=== PATIENT | female | born 1980 | race Caucasian/White ===

== ENCOUNTER 2018-08-28 11:34 | Emergency (ER) | payer SELFPAY ==
--- NOTE | 2018-08-28 11:48 | ER Document Report ---
ED Medical Screen (RME) - General Chief Complaint: Upper Abdominal Pain Stated Complaint: ABDOMINAL PAIN Time Seen by Provider: 08/28/18 11:40 Notes: 38 years old female with a history of right inguinal hernia presents today with abdominal pain just above the umbilicus after a sharp cough happened just prior to arrival. The pain was sharp associated with nausea no vomiting. Denies any diarrhea but been constipated. No fever chills or other constitutional symptoms. On examination sharp tenderness were noted in the region between the epigastrium and umbilicus. Possible small hernia. TRAVEL OUTSIDE OF THE [place] IN LAST 30 DAYS: No - Related Data Allergies/Adverse Reactions: No Known Allergies Allergy (Verified 08/28/18 11:35) Past Medical History - Social History Chew tobacco use (# tins/day): No Frequency of alcohol use: Occasional Drug Abuse: None - Past Medical History Cardiac Medical History: Reports: Hx Hypertension Pulmonary Medical History: Reports: Hx Asthma, Hx Bronchitis Renal/ Medical History: Denies: Hx Peritoneal Dialysis Musculoskeltal Medical History: Reports Hx Musculoskeletal Trauma Psychiatric Medical History: Reports: Hx Depression Past Surgical History: Reports: Hx Section - 3, Hx Cholecystectomy, Hx Gynecologic Surgery - D+C, Hx Hysterectomy, Hx Tubal Ligation - Immunizations Immunizations up to date: Yes Hx Diphtheria, Pertussis, Tetanus Vaccination: - unsure of date Physical Exam - Vital signs Vitals: Temp Pulse Resp BP Pulse Ox 97.8 F 79 18 185/97 H 97 08/28/18 11:38 08/28/18 11:38 08/28/18 11:38 08/28/18 11:38 08/28/18 11:38 Course - Vital Signs Vital signs: Temp Pulse Resp BP Pulse Ox 97.8 F 79 18 185/97 H 97 08/28/18 11:38 08/28/18 11:38 08/28/18 11:38 08/28/18 11:38 08/28/18 11:38 Doctor's Discharge - Discharge Referrals: SHAREE ARANGO MD [Primary Care Provider] - Follow up as needed
[2018-08-28 12:21] LABS: ALANINE AMINOTRANSFERASE 32 U/L (9-52); ALBUMIN 4.1 g/dL (3.5-5.0); ALKALINE PHOSPHATASE 75 U/L (38-126); ANION GAP 12 (5-19); ASPARTATE AMINO TRANSFERASE 23 U/L (14-36); BILIRUBIN,DIRECT 0.3 mg/dL (0.0-0.4); BILIRUBIN,TOTAL 0.7 mg/dL (0.2-1.3); BLOOD UREA NITROGEN 10 mg/dL (7-20); CALCIUM 9.5 mg/dL (8.4-10.2); CARBON DIOXIDE 27 mmol/L (22-30); CHLORIDE 102 mmol/L (98-107); GLUCOSE 140 mg/dL (75-110); LIPASE 171.3 U/L (23-300); POTASSIUM 4.2 mmol/L (3.6-5.0); SODIUM 141.3 mmol/L (137-145); TOTAL PROTEIN 7.2 g/dL (6.3-8.2)
--- NOTE | 2018-08-28 12:28 | RADIOLOGY REPORT (SQ) ---
EXAM DESCRIPTION: ACUTE ABDOMEN SERIES COMPLETED DATE/TIME: 08/28/2018 12:13 pm REASON FOR STUDY: Abdominal pain COMPARISON: CT abdomen pelvis 10/06/2015, 01/06/2015, 04/08/2014 NUMBER OF VIEWS: Three views. TECHNIQUE: Frontal chest, supine abdomen and upright abdomen radiographic images acquired. LIMITATIONS: None. FINDINGS: CHEST: Lungs clear of infiltrates. Cardiac silhouette size, patricia unremarkable. FREE AIR: None. No abnormal gas collections. BOWEL GAS PATTERN: Nonobstructive pattern. No dilated loops or air fluid levels. Patient has an abdo dario panniculus with small bowel air bubble pattern over the right inguinal region, correlate clinic ally for lower abdominal hernia CALCIFICATIONS: No suspicious calcifications. HARDWARE: Clips right upper quadrant post cholecystectomy SOFT TISSUES: No gross mass or suggestion of organomegaly. BONES: No acute fracture. No worrisome bone lesions. OTHER: No other significant finding. IMPRESSION: Patient has an abdominal panniculus with small bowel air bubble pattern over the right i nguinal region, correlate clinically for lower abdominal hernia Grossly nonobstructive bowel gas pattern No acute infiltrates TECHNICAL DOCUMENTATION: JOB ID: [id number]- All Rights Reserved Reading location - IP/workstation name: [email or web address]
--- NOTE | 2018-08-28 12:28 | ER Document Report ---
ED GI/ - General Mode of Arrival: Ambulatory Information source: Patient TRAVEL OUTSIDE OF THE [place] IN LAST 30 DAYS: No <SERENA PICKERING - Last Filed: 08/28/18 12:46> <TEAGAN PISANO - Last Filed: 08/28/18 16:38> - General Chief Complaint: Upper Abdominal Pain Stated Complaint: ABDOMINAL PAIN Time Seen by Provider: 08/28/18 11:40 Notes: 38-year-old female that presents to the emergency department today with complaints of abdominal pain. Patient states she has a hernia that has been present for quite some time however beginning last night the pain that she experienced with this hernia became much greater than what she is used to. Patient also mentions she had some upper abdominal pain this morning when cooking that was described as a burning and then she had a violent cough and her upper abdominal pain got much worse and it felt like "her abdomen was on fire". (SERENA PICKERING) - Related Data Allergies/Adverse Reactions: adhesive tape Allergy (Verified 08/28/18 11:47) Past Medical History - General Information source: Patient - Social History Smoking Status: Current Every Day Smoker Cigarette use (# per day): Yes Chew tobacco use (# tins/day): No Frequency of alcohol use: Occasional Drug Abuse: None Lives with: Family Family History: Arthritis, CAD, CVA, DM, Hyperlipidemia, Hypertension, Malignancy, Thyroid Disfunction Patient has suicidal ideation: No Patient has homicidal ideation: No - Past Medical History Cardiac Medical History: Reports: Hx Hypertension Pulmonary Medical History: Reports: Hx Asthma, Hx Bronchitis Renal/ Medical History: Denies: Hx Peritoneal Dialysis Musculoskeletal Medical History: Reports Hx Musculoskeletal Trauma Psychiatric Medical History: Reports: Hx Depression Past Surgical History: Reports: Hx Section - 3, Hx Cholecystectomy, Hx Gynecologic Surgery - D+C, Hx Hysterectomy, Hx Tubal Ligation - Immunizations Immunizations up to date: Yes Hx Diphtheria, Pertussis, Tetanus Vaccination: - unsure of date Hx Pneumococcal Vaccination: 01/25/13 <SERENA PICKERING - Last Filed: 08/28/18 12:46> Review of Systems - Review of Systems Constitutional: No symptoms reported EENT: No symptoms reported Cardiovascular: No symptoms reported Respiratory: No symptoms reported Gastrointestinal: See HPI, Abdominal pain, Nausea Genitourinary: No symptoms reported Female Genitourinary: No symptoms reported Musculoskeletal: No symptoms reported Skin: No symptoms reported Hematologic/Lymphatic: No symptoms reported Neurological/Psychological: No symptoms reported -: Yes All other systems reviewed and negative <RAHEELSERENA - Last Filed: 08/28/18 12:46> Physical Exam <RAHEELSERENA - Last Filed: 08/28/18 12:46> <TEAGAN PISANO - Last Filed: 08/28/18 16:38> - Vital signs Vitals: Temp Pulse Resp BP Pulse Ox 97.8 F 79 18 185/97 H 97 08/28/18 11:38 08/28/18 11:38 08/28/18 11:38 08/28/18 11:38 08/28/18 11:38 - Notes Notes: Physical Exam: General: Alert, appears well. HEENT: Normocephalic. Atraumatic. PERRL. Extraocular movements intact. Oropharynx clear. Neck: Supple. Non-tender. Respiratory: No respiratory distress. Clear and equal breath sounds bilaterally. Cardiovascular: Regular rate and rhythm. Abdominal: Morbidly obese. Epigastric area is not tender. Supraumbilical area is tender with palpation without guarding or rebound. large suprapubic hernia that is somewhat reducible but is soft and not incarcerated. Some areas of this hernia have thin skin which corresponds to the areas where a previous hernia was repaired with mesh, the mesh then had to be removed because of infection. Normal Bowel Sounds. Back: Non-tender. No deformity or step off. Extremities: Moves all four extremities. Upper extremities: Normal inspection. Normal ROM. Lower extremities: Normal inspection. No edema. Normal ROM. Neurological: Normal cognition. AAOx4. Normal speech. Psychological: Normal affect. Normal Mood. Skin: Warm. Dry. Normal color. (SERENA PICKERING) Course - Laboratory Result Diagrams: 08/28/18 11:55 08/28/18 11:55 <SERENA PICKERING - Last Filed: 08/28/18 12:46> - Laboratory Result Diagrams: 08/28/18 11:55 08/28/18 11:55 - Diagnostic Test Radiology reviewed: Image reviewed, Reports reviewed - CT scan shows a suprapubic midline rectus muscle diastases with herniation of nonobstructed small bowel loops into the anterior abdominal wall panel decubitus fat, unchanged from CT scan almost 3 years ago. <TEAGAN PISANO - Last Filed: 08/28/18 16:38> - Vital Signs Vital signs: Temp Pulse Resp BP Pulse Ox 97.8 F 69 16 147/92 H 96 08/28/18 11:38 08/28/18 16:18 08/28/18 16:18 08/28/18 16:18 08/28/18 16:18 - Laboratory Laboratory results interpreted by me: 08/28/18 08/28/18 08/28/18 11:55 11:55 11:55 RDW 14.9 H Glucose 140 H Urine Blood SMALL H Discharge <SERENA PICKERING - Last Filed: 08/28/18 12:46> <TEAGAN PISANO - Last Filed: 08/28/18 16:38> - Discharge Clinical Impression: Hernia of abdominal cavity Abdominal pain Qualifiers: Abdominal location: periumbilical Qualified Code(s): R10.33 - Periumbilical pain Condition: Stable Disposition: HOME, SELF-CARE Additional Instructions: The CT scan done today is unchanged from one done on 10/06/2015. The lab work does not suggest an infectious process. The pain in your mid abdomen seems to be coming from the abdominal muscle wall. There is no obstruction noted in your suprapubic hernia. You should follow-up with your primary care provider this week for recheck. Take Tylenol and ibuprofen for pain and try to limit activity that makes it more painful. RETURN TO THE EMERGENCY ROOM IF ANY NEW OR WORSENING SYMPTOMS. Referrals: SHAREE ARANGO MD [NO LOCAL MD] - Follow up as needed Scribe Attestation: 08/28/18 12:31 I personally performed the services described in the documentation, reviewed and edited the documentation which was dictated to the scribe in my presence, and it accurately records my words and actions. (TEAGAN PISANO) Scribe Documentation - Scribe Written by David:: David Noel, 08/28/2018 1306 acting as scribe for :: Harshad <SERENA PICKERING - Last Filed: 08/28/18 12:46>
[2018-08-28 12:29] LABS: ABSOLUTE EOSINOPHILS # (AUTO) 0.4 10^3/uL (0.0-0.6); ABSOLUTE MONOCYTES (AUTO) 0.3 10^3/uL (0.1-1.4); ABSOLUTE NEUT (AUTO) 5.9 10^3/uL (1.7-8.2); BASOPHILS % (AUTO) 0.3 % (0-2); EOSINOPHILS % (AUTO) 4.4 % (0-6); HEMATOCRIT 42.7 % (36.0-47.0); HEMOGLOBIN 14.8 g/dL (12.0-15.5); LYMPHOCYTES % (AUTO) 23.2 % (13-45); MEAN CORPUSCULAR HEMOGLOBIN 28.2 pg (27.0-33.4); MEAN CORPUSCULAR HGB CONC 34.6 g/dL (32.0-36.0); MEAN CORPUSCULAR VOLUME 82 fl (80-97); MONOCYTES % (AUTO) 3.3 % (3-13); PLATELET COUNT 257 10^3/uL (150-450); RED BLOOD COUNT 5.24 10^6/uL (3.72-5.28); RED CELL DISTRIBUTION WIDTH 14.9 % (11.5-14.0); SEGMENTED NEUTROPHILS % (AUTO) 68.8 % (42-78); TOTAL CELLS COUNTED % (AUTO) 100 %; WHITE BLOOD COUNT 8.6 10^3/uL (4.0-10.5)
[2018-08-28 12:31] LABS: APPEARANCE,URINE SLIGHTLY-CLOUDY; BILIRUBIN,URINE NEGATIVE (NEGATIVE); COLOR,URINE YELLOW; GLUCOSE, URINE NEGATIVE (NEGATIVE); KETONES,URINE NEGATIVE (NEGATIVE); LEUKOCYTE ESTERASE,URINE NEGATIVE (NEGATIVE); NITRITE,URINE NEGATIVE (NEGATIVE); PROTEIN,URINE NEGATIVE (NEGATIVE); URINE SPECIFIC GRAVITY 1.008; UROBILINOGEN,URINE NEGATIVE mg/dL (<2.0)
[2018-08-28] MEDS ORDERED: ONDANSETRON HCL INJ/PF 4 MG/2 ML SDV IV ONE (12:33)
--- NOTE | 2018-08-28 16:15 | RADIOLOGY REPORT (SQ) ---
EXAM DESCRIPTION: CT ABD/PELVIS WITH IV ORAL COMPLETED DATE/TIME: 08/28/2018 3:50 pm REASON FOR STUDY: Burning pain supraumbilical,sharp pains suprapubic COMPARISON: CT abdomen pelvis 10/06/2015, 01/06/2015, 04/08/2014 TECHNIQUE: CT scan of the abdomen and pelvis performed using helical scanning technique with dynamic intravenous contrast injection. Patient drank oral contrast. Images reviewed with lung, soft tissue , and bone windows. Reconstructed coronal and sagittal MPR images reviewed. Delayed images for evalua tion of the urinary system also acquired. All images stored on PACS. All CT scanners at this facility use dose modulation, iterative reconstruction, and/or weight based d osing when appropriate to reduce radiation dose to as low as reasonably achievable (ALARA). [facility]: Dose Right [facility]: CareDose [facility]: Dose Right [facility]: Teradose 4D [facility]: SeptRx CONTRAST TYPE AND DOSE: contrast/concentration: Isovue 350.00 mg/ml; Total Contrast Delivered: 100.0 ml; Total Saline Delivered: 45.0 ml RENAL FUNCTION: GFR > 60. RADIATION DOSE: CT Rad equipment meets quality standard of care and radiation dose reduction techniq ues were employed. CTDIvol: 20.8 - 21.0 mGy. DLP: 2394 mGy-cm.. LIMITATIONS: None. FINDINGS: There is diastasis of the rectus muscles in the suprapubic region, and midline herniation of nonobstructed small bowel into the panniculus fat. This is best shown on axial images 75-97, and sagittal images 65-74. This hernia is similar compared to 10/06/2015 CT abdomen and pelvis. LOWER CHEST: No significant findings. No nodules or infiltrates. LIVER: Normal size. No masses. No dilated ducts. SPLEEN: Normal size. No focal lesions. PANCREAS: No masses. No significant calcifications. No adjacent inflammation or peripancreatic fluid collections. Pancreatic duct not dilated. GALLBLADDER: Surgically absent ADRENAL GLANDS: No significant masses or asymmetry. RIGHT KIDNEY AND URETER: No solid masses. No significant calcifications. No hydronephrosis or hyd roureter. LEFT KIDNEY AND URETER: No solid masses. No significant calcifications. No hydronephrosis or hydr oureter. AORTA AND VESSELS: No aneurysm. No dissection. Renal arteries, SMA, celiac without stenosis. RETROPERITONEUM: No retroperitoneal adenopathy, hemorrhage or masses. BOWEL AND PERITONEAL CAVITY: Patient drank oral contrast. No bowel obstruction. No free intraperito vince air or fluid. APPENDIX: Surgically absent PELVIS: Post hysterectomy. No free pelvic fluid. Normal size ovaries. No pelvic adenopathy ABDOMINAL WALL: Suprapubic midline rectus muscle diastases with herniation of nonobstructed small bow el loops into anterior abdominal wall panniculus fat BONES: No significant or acute findings. OTHER: No other significant finding. IMPRESSION: Suprapubic midline rectus muscle diastases with herniation of nonobstructed small bowel loops into anterior abdominal wall panniculus fat, similar compared to CT abdomen and pelvis 10/06/20 15 TECHNICAL DOCUMENTATION: JOB ID: [id number] Quality ID # [id number]: Final reports with documentation of one or more dose reduction techniques (e.g., Au tomated exposure control, adjustment of the mA and/or kV according to patient size, use of iterative reconstruction technique) 2010 [employer]- All Rights Reserved Reading location - IP/workstation name: [email or web address]
[2018-08-28 16:19] VITALS: BP 147/92
[2018-08-28] MEDS ORDERED: HYDROCODONE/ACETAMINOPHEN 5-325 MG (6 TAB/ER DISP) PO PRN (16:39)
== END 2018-08-28 16:55 | disposition home or self-care (01) ==
LOC: ER 11:34
DX: K43.9 Ventral hernia without obstruction or gangrene (principal); M62.08 Separation of muscle (nontraumatic), other site; R10.33 Periumbilical pain; R05 Cough; I10 Essential (primary) hypertension; J45.909 Unspecified asthma, uncomplicated; R11.0 Nausea; F17.210 Nicotine dependence, cigarettes, uncomplicated; Z91.048 Other nonmedicinal substance allergy status
CPT/HCPCS: 99284; 96374; 36415; 83690; 85025; 80053; 81001; 74022; 74177; J2405

== ENCOUNTER 2018-10-28 13:28 | Emergency (ER) | payer SELFPAY ==
[2018-10-28] MEDS ORDERED: MAGNESIUM SULFATE/D5W 1 GM/100 ML RTUPB IV ONE (15:34)
[2018-10-28] MEDS ORDERED: IPRATROPIUM/ALBUTEROL 0.5-2.5 MG/3 ML AMPUL NEB ONE (15:34)
[2018-10-28] MEDS ORDERED: METHYLPREDNISOLONE INJ 125 MG/2 ML SDV IV ONE (15:35)
--- NOTE | 2018-10-28 15:36 | ER Document Report ---
ED Medical Screen (RME) - General Chief Complaint: Breathing Difficulty Stated Complaint: DIFFICULTY BREATHING Time Seen by Provider: 10/28/18 15:33 Primary Care Provider: OLAF VASQUEZ MD [Primary Care Provider] - Follow up as needed Mode of Arrival: Ambulatory Information source: Patient Notes: This is a 38-year-old female with a history of hypertension, asthma and a recent diagnosis of pneumonia presents to the emergency room with worsening shortness of breath, dyspnea. Patient states she was placed on amoxicillin 2 nights ago. She was placed on prednisone but states she had not filled that prescription. She states that the shortness of breath is been getting worse. She does endorse fever. TRAVEL OUTSIDE OF THE [place] IN LAST 30 DAYS: No - Related Data Allergies/Adverse Reactions: adhesive tape Allergy (Verified 10/28/18 13:42) cephalexin [From Keflex] Allergy (Verified 10/28/18 13:42) Past Medical History - Past Medical History Cardiac Medical History: Reports: Hx Hypertension Pulmonary Medical History: Reports: Hx Asthma, Hx Bronchitis Renal/ Medical History: Denies: Hx Peritoneal Dialysis Musculoskeltal Medical History: Reports Hx Musculoskeletal Trauma Psychiatric Medical History: Reports: Hx Depression Past Surgical History: Reports: Hx Section - 3, Hx Cholecystectomy, Hx Gynecologic Surgery - 3 , Hx Hysterectomy, Hx Tubal Ligation, Other - Multiple abdominal wall hernia repair involving Pfannenstiel incision - Immunizations Immunizations up to date: Yes Hx Diphtheria, Pertussis, Tetanus Vaccination: - unsure of date Physical Exam - Vital signs Vitals: Temp Pulse Resp BP Pulse Ox 99.8 F 113 H 24 H 155/101 H 97 10/28/18 14:10/28/18 14:31 10/28/18 14:10/28/18 14:10/28/18 14:31 Course - Vital Signs Vital signs: Temp Pulse Resp BP Pulse Ox 99.8 F 113 H 24 H 155/101 H 97 10/28/18 14:10/28/18 14:10/28/18 14:10/28/18 14:10/28/18 14:31 Doctor's Discharge - Discharge Referrals: OLAF VASQUEZ MD [Primary Care Provider] - Follow up as needed
[2018-10-28 16:32] LABS: ABSOLUTE BASOPHILS # (AUTO) 0.1 10^3/uL (0.0-0.2); ABSOLUTE EOSINOPHILS # (AUTO) 0.3 10^3/uL (0.0-0.6); ABSOLUTE LYMPHOCYTES (AUTO) 1.7 10^3/uL (0.5-4.7); ABSOLUTE MONOCYTES (AUTO) 0.9 10^3/uL (0.1-1.4); ABSOLUTE NEUT (AUTO) 6.8 10^3/uL (1.7-8.2); BASOPHILS % (AUTO) 0.5 % (0-2); EOSINOPHILS % (AUTO) 2.8 % (0-6); HEMATOCRIT 46.9 % (36.0-47.0); HEMOGLOBIN 16.2 g/dL (12.0-15.5); LYMPHOCYTES % (AUTO) 17.7 % (13-45); MEAN CORPUSCULAR HEMOGLOBIN 27.8 pg (27.0-33.4); MEAN CORPUSCULAR HGB CONC 34.6 g/dL (32.0-36.0); MEAN CORPUSCULAR VOLUME 80 fl (80-97); MONOCYTES % (AUTO) 9.2 % (3-13); PLATELET COUNT 294 10^3/uL (150-450); RED BLOOD COUNT 5.84 10^6/uL (3.72-5.28); RED CELL DISTRIBUTION WIDTH 15.6 % (11.5-14.0); SEGMENTED NEUTROPHILS % (AUTO) 69.8 % (42-78); TOTAL CELLS COUNTED % (AUTO) 100 %; WHITE BLOOD COUNT 9.7 10^3/uL (4.0-10.5)
[2018-10-28 16:39] LABS: A TYPE INFLUENZA AG NEGATIVE (NEGATIVE); B INFLUENZA AG NEGATIVE (NEGATIVE)
[2018-10-28 16:48] LABS: ALANINE AMINOTRANSFERASE 36 U/L (9-52); ALBUMIN 4.7 g/dL (3.5-5.0); ALKALINE PHOSPHATASE 96 U/L (38-126); ANION GAP 11 (5-19); ASPARTATE AMINO TRANSFERASE 31 U/L (14-36); BILIRUBIN,DIRECT 0.3 mg/dL (0.0-0.4); BILIRUBIN,TOTAL 0.7 mg/dL (0.2-1.3); BLOOD UREA NITROGEN 10 mg/dL (7-20); CALCIUM 9.8 mg/dL (8.4-10.2); CARBON DIOXIDE 28 mmol/L (22-30); CHLORIDE 97 mmol/L (98-107); GLUCOSE 114 mg/dL (75-110); SODIUM 136.2 mmol/L (137-145); TOTAL PROTEIN 8.2 g/dL (6.3-8.2)
--- NOTE | 2018-10-28 17:10 | RADIOLOGY REPORT (SQ) ---
EXAM DESCRIPTION: CHEST 2 VIEWS COMPLETED DATE/TIME: 10/28/2018 4:34 pm REASON FOR STUDY: sob COMPARISON: 08/18/2014 EXAM PARAMETERS: NUMBER OF VIEWS: two views TECHNIQUE: Digital Frontal and Lateral radiographic views of the chest acquired. RADIATION DOSE: NA LIMITATIONS: none FINDINGS: LUNGS AND PLEURA: Parenchymal opacity in the lingula segment of the left upper lobe. Righ t lung is clear. MEDIASTINUM AND HILAR STRUCTURES: No masses or contour abnormalities. HEART AND VASCULAR STRUCTURES: Heart normal size. No evidence for failure. BONES: No acute findings. HARDWARE: None in the chest. OTHER: No other significant finding. IMPRESSION: Lingular pneumonia. TECHNICAL DOCUMENTATION: JOB ID: [id number] [employer]- All Rights Reserved Reading location - IP/workstation name: [email or web address]
[2018-10-28] MEDS ORDERED: IBUPROFEN 800 MG TABLET PO ONE (19:45)
[2018-10-28] MEDS ORDERED: NORMAL SALINE 1000 ML 1,000 ML IV ONE (19:45)
[2018-10-28] MEDS ORDERED: AMOXICILLIN TR/POT CLAVULANATE 500-125 MG TAB PO ONE (19:46)
--- NOTE | 2018-10-28 19:48 | ER Document Report ---
ED Respiratory Problem - General Chief Complaint: Breathing Difficulty Stated Complaint: DIFFICULTY BREATHING Time Seen by Provider: 10/28/18 15:33 Primary Care Provider: OLAF VASQUEZ MD [Primary Care Provider] - Follow up as needed Mode of Arrival: Ambulatory Notes: RME Provider note: This is a 38-year-old female with a history of hypertension, asthma and a recent diagnosis of pneumonia presents to the emergency room with worsening shortness of breath, dyspnea. Patient states she was placed on amoxicillin 2 nights ago. She was placed on prednisone but states she had not filled that prescription. She states that the shortness of breath is been getting worse. She does endorse fever. My HPI: Same as above. Patient's also stating that she does not have a nebulizer machine at home because she believes it is broken. She has not been using at home albuterol which was also prescribed to her when she was diagnosed with pneumonia 2 days ago. And a further discussion with the patient she states the antibiotic that she is on is azithromycin not amoxicillin. Patient also stating she has generalized body aches and generalized bilateral lower rib pain when she coughs. Patient also stating that she typically smokes about a pack of cigarettes a day. States she has not smoked any cigarettes for the last 3 days. Past medical history: Hypertension, asthma Medications: Amlodipine, Symbicort, albuterol Allergies: Cephalexin Patient's denying any hospital admissions within the last 3 months. TRAVEL OUTSIDE OF THE [place] IN LAST 30 DAYS: No - Related Data Allergies/Adverse Reactions: adhesive tape Allergy (Verified 10/28/18 13:42) cephalexin [From Keflex] Allergy (Verified 10/28/18 13:42) Past Medical History - General Information source: Patient - Social History Smoking Status: Current Every Day Smoker Family History: Arthritis, Malignancy, CAD, CVA, DM, Hyperlipidemia, Hypertension, Reviewed & Not Pertinent, Thyroid Disfunction Patient has suicidal ideation: No Patient has homicidal ideation: No - Past Medical History Cardiac Medical History: Reports: Hx Hypertension Pulmonary Medical History: Reports: Hx Asthma, Hx Bronchitis Renal/ Medical History: Denies: Hx Peritoneal Dialysis Musculoskeletal Medical History: Reports Hx Musculoskeletal Trauma Psychiatric Medical History: Reports: Hx Depression Past Surgical History: Reports: Hx Section - 3, Hx Cholecystectomy, Hx Gynecologic Surgery - 3 , Hx Hysterectomy, Hx Tubal Ligation, Other - Multiple abdominal wall hernia repair involving Pfannenstiel incision - Immunizations Immunizations up to date: Yes Hx Diphtheria, Pertussis, Tetanus Vaccination: - unsure of date Hx Pneumococcal Vaccination: 01/25/13 Review of Systems - Review of Systems Constitutional: See HPI EENT: See HPI Cardiovascular: See HPI Respiratory: See HPI Gastrointestinal: No symptoms reported Genitourinary: No symptoms reported Female Genitourinary: No symptoms reported Musculoskeletal: See HPI Skin: No symptoms reported Hematologic/Lymphatic: No symptoms reported Neurological/Psychological: No symptoms reported Physical Exam - Vital signs Vitals: Temp Pulse Resp BP Pulse Ox 99.8 F 113 H 24 H 155/101 H 97 10/28/18 14:31 10/28/18 14:31 10/28/18 14:31 10/28/18 14:31 10/28/18 14:31 - Notes Notes: GENERAL: Alert, interacts well. No acute distress. HEAD: Normocephalic, atraumatic. No frontal or maxillary sinus tenderness noted EYES: Pupils equal, round, and reactive to light. Extraocular movements intact. ENT: Oral mucosa moist, tongue midline. Nares patent, TM's intact, nonerythematous, nonbulging bilaterally. Pharynx within normal limits, no palatal petechiae or exudate noted. NECK: Full range of motion. Supple. Trachea midline. No lymphadenopathy appreciated LUNGS: Clear to auscultation bilaterally, no wheezes, rales, or rhonchi. No respiratory distress. HEART: Regular rate and rhythm. No murmur ABDOMEN: Obese soft, non-tender. Non-distended. Bowel sounds present in all 4 quadrants. EXTREMITIES: Moves all 4 extremities spontaneously. No edema, normal radial and dorsalis pedis pulses bilaterally. No cyanosis. BACK: no cervical, thoracic, lumbar midline tenderness. No saddle anesthesia, normal distal neurovascular exam. NEUROLOGICAL: Alert and oriented x3. Normal speech. cranial nerves II through XII grossly intact PSYCH: Normal affect, normal mood. SKIN: Warm, dry, normal turgor. No rashes or lesions noted. Course - Re-evaluation Re-evalutation: 10/28/18 19:48 Patient's labs showed no signs of leukocytosis. Minor decrease in patient's sodium at 136.2-treated with normal saline solution.. Her lactic acid was 0.9 and not elevated at all. Patient's flu test was negative. Patient's chest x- ray did show a left lingular pneumonia. Patient was given magnesium, Solu- Medrol, 1 DuoNeb treatment by the [facility] provider. Upon my assessment patient's lung sounds are clear and equal in all thomas. She is 100% on room air, in no respiratory distress at this time. Discussed with patient need to get her medications filled and take them as prescribed or she is not going to get any better. Discussed adding Augmentin to her azithromycin antibiotic. Patient voices understanding, stable for discharge at this time. - Vital Signs Vital signs: Temp Pulse Resp BP Pulse Ox 99.8 F 113 H 21 H 128/92 H 93 10/28/18 14:31 10/28/18 14:31 10/28/18 19:01 10/28/18 19:01 10/28/18 19:01 - Laboratory Result Diagrams: 10/28/18 16:19 10/28/18 16:19 Laboratory results interpreted by me: 10/28/18 10/28/18 16:19 16:19 RBC 5.84 H Hgb 16.2 H RDW 15.6 H Sodium 136.2 L Chloride 97 L Glucose 114 H Discharge - Discharge Clinical Impression: Smoker Pneumonia Qualifiers: Pneumonia type: due to unspecified organism Laterality: left Lung location: unspecified part of lung Qualified Code(s): J18.9 - Pneumonia, unspecified organism Condition: Stable Disposition: HOME, SELF-CARE Instructions: Pneumonia ([facility]) Additional Instructions: As we discussed you have been seen and treated in the emergency department for your pneumonia. You should take your albuterol treatments every 4 hours for the next 72 hours. You should also take the steroid prescription that I have given you. You should also take this new antibiotic I have given you. Please make sure you take your old antibiotic azithromycin as well. Take both antibiotics at the same time. Please also use a spacer when you use your albuterol inhaler. Please make sure that you are continuing to take Tylenol and Motrin [id number] for generalized body aches and fevers. Please make sure you are staying well-hydrated. Please follow-up with your primary care provider in the next 24-48 hours. Please return to the emergency room for any other concerning symptoms. Prescriptions: Benzonatate [Tessalon Ella 100 mg Capsule] 100 mg PO Q8HP PRN #40 capsule PRN Reason: Albuterol Sulfate [Proair HFA Inhalation Aerosol 8.5 gm MDI] 2 puff IH Q4H PRN #1 mdi PRN Reason: Albuterol Sulfate [Ventolin 0.083% Neb 2.5 mg/3 mL Ampul] 1 vial NEB Q4 #60 vial Amoxicillin/Potassium Clav [Augmentin Xr 1,000-62.5 Tab] 2 each PO BID 7 Days tab.er.12h Nebulizer [Nebulizer Machine] 1 each MC ASDIR PRN #1 kit PRN Reason: Prednisone [Deltasone 20 mg Tablet] 3 tab PO DAILY 5 Days tablet Referrals: OLAF VASQUEZ MD [Primary Care Provider] - Follow up as needed [facility] [Provider Group] - Follow up as needed
[2018-10-28 20:03] VITALS: BP 129/77
== END 2018-10-28 20:55 | disposition home or self-care (01) ==
LOC: ER 13:28
DX: J18.9 Pneumonia, unspecified organism (principal); J45.909 Unspecified asthma, uncomplicated; T38.0X6A Underdosing of glucocorticoids and synthetic analogues, initial encounter; T48.6X6A Underdosing of antiasthmatics, initial encounter; Z91.128 Patient's intentional underdosing of medication regimen for other reason; Z91.14 Patient's other noncompliance with medication regimen; F17.210 Nicotine dependence, cigarettes, uncomplicated; I10 Essential (primary) hypertension; R06.02 Shortness of breath; R50.9 Fever, unspecified; R05 Cough; R07.81 Pleurodynia; Z91.048 Other nonmedicinal substance allergy status; Z88.1 Allergy status to other antibiotic agents
CPT/HCPCS: 94640; 99285; 96361; 96374; 36415; 87040; 85025; 80053; 83605; 87804; 71046; J2930; J3475; J7030; J7620

== ENCOUNTER 2018-11-04 18:30 | Emergency (ER) | payer SELFPAY ==
--- NOTE | 2018-11-04 19:39 | ER Document Report ---
ED Medical Screen (RME) - General Chief Complaint: Abdominal Pain Stated Complaint: ABDOMINAL PAIN Time Seen by Provider: 11/04/18 18:34 Primary Care Provider: OLAF VASQUEZ MD [Primary Care Provider] - Follow up as needed TRAVEL OUTSIDE OF THE [place] IN LAST 30 DAYS: No - HPI Patient complains to provider of: Suprapubic hernia pain Notes: 11/04/18 19:38 Patient is a 38-year-old female with chronically incarcerated Pfannenstiel hernia, which is a large hernia in the suprapubic region, she states over the past few days she has had more pain with a burning sensation at the site, which is making her nauseated, she also complains of difficulty having bowel movements, patient has been seen in this department for this hernia previously and surgery was consulted, she was advised to follow-up with them as an outpatient for further evaluation and treatment and possible repair RAPID MEDICAL EVALUATION DISCLOSURE I have seen this patient as part of a Rapid Medical Evaluation and, if applicable, placed any initially appropriate orders. The patient will be seen and fully evaluated, including a full history and physical exam, by a provider (in Main ED or Fast Track) when a room becomes available. - Related Data Allergies/Adverse Reactions: adhesive tape Allergy (Verified 10/28/18 13:42) cephalexin [From Keflex] Allergy (Verified 10/28/18 13:42) Past Medical History - Past Medical History Cardiac Medical History: Reports: Hx Hypertension Pulmonary Medical History: Reports: Hx Asthma, Hx Bronchitis Renal/ Medical History: Denies: Hx Peritoneal Dialysis Musculoskeltal Medical History: Reports Hx Musculoskeletal Trauma Psychiatric Medical History: Reports: Hx Depression Past Surgical History: Reports: Hx Section - 3, Hx Cholecystectomy, Hx Gynecologic Surgery - 3 , Hx Hysterectomy, Hx Tubal Ligation, Other - Multiple abdominal wall hernia repair involving Pfannenstiel incision - Immunizations Immunizations up to date: Yes Hx Diphtheria, Pertussis, Tetanus Vaccination: - unsure of date Physical Exam - Vital signs Vitals: Temp Pulse Resp BP Pulse Ox 98 F 70 18 154/100 H 97 11/04/18 18:44 11/04/18 18:44 11/04/18 18:44 11/04/18 18:44 11/04/18 18:44 Course - Vital Signs Vital signs: Temp Pulse Resp BP Pulse Ox 98 F 70 18 154/100 H 97 11/04/18 18:44 11/04/18 18:44 11/04/18 18:44 11/04/18 18:44 11/04/18 18:44 Doctor's Discharge - Discharge Referrals: OLAF VASQUEZ MD [Primary Care Provider] - Follow up as needed
[2018-11-04 20:18] LABS: APPEARANCE,URINE SLIGHTLY-CLOUDY; BILIRUBIN,URINE NEGATIVE (NEGATIVE); COLOR,URINE YELLOW; GLUCOSE, URINE NEGATIVE (NEGATIVE); KETONES,URINE NEGATIVE (NEGATIVE); LEUKOCYTE ESTERASE,URINE NEGATIVE (NEGATIVE); NITRITE,URINE NEGATIVE (NEGATIVE); PROTEIN,URINE 30 mg/dL (NEGATIVE); UROBILINOGEN,URINE NEGATIVE mg/dL (<2.0)
[2018-11-04] MEDS ORDERED: NORMAL SALINE 1000 ML 1,000 ML IV ONE (20:21)
[2018-11-04] MEDS ORDERED: ONDANSETRON HCL INJ/PF 4 MG/2 ML SDV IV ONE (20:21)
[2018-11-04] MEDS ORDERED: MORPHINE SULFATE 10 MG/ML INJ IV ONE (20:21)
[2018-11-04 20:22] LABS: HEMATOCRIT 43.8 % (36.0-47.0); HEMOGLOBIN 15.2 g/dL (12.0-15.5); MEAN CORPUSCULAR HGB CONC 34.8 g/dL (32.0-36.0); MEAN CORPUSCULAR VOLUME 81 fl (80-97); PLATELET COUNT 325 10^3/uL (150-450); RED BLOOD COUNT 5.44 10^6/uL (3.72-5.28); RED CELL DISTRIBUTION WIDTH 15.6 % (11.5-14.0); WHITE BLOOD COUNT 15.4 10^3/uL (4.0-10.5)
[2018-11-04 20:25] LABS: INTERNATIONAL RATION (INR) 0.87; PROTHROMBIN TIME 12.3 SEC (11.4-15.4)
[2018-11-04 20:26] LABS: PARTIAL THROMBOPLASTIN TIME 41.9 SEC (23.5-35.8)
--- NOTE | 2018-11-04 20:26 | ER Document Report ---
ED GI/ - General Chief Complaint: Abdominal Pain Stated Complaint: ABDOMINAL PAIN Time Seen by Provider: 11/04/18 18:34 Primary Care Provider: OLAF VASQUEZ MD [Primary Care Provider] - Follow up as needed Notes: Patient is a 38-year-old female that comes to the emergency department for chief complaint of sharp mid to left lower abdominal pain, she has a history of a Pfannenstiel incisional hernia repair x2 in 2016 in [place] for a ventral hernia in the suprapubic area, she states that the area has become very painful and she has become very nauseated today. She denies vomiting, fever. She states yesterday she had a normal bowel movement, she states when she tried to have one today she "forced it" and saw some bright red blood. No bleeding since. No black stools. No other complaints. Past medical history includes 3 C-sections, umbilical hernia repair, cholecystectomy, partial hysterectomy, hypertension, asthma. She stopped smoking 3 weeks ago. TRAVEL OUTSIDE OF THE [place] IN LAST 30 DAYS: No - Related Data Allergies/Adverse Reactions: adhesive tape Allergy (Verified 10/28/18 13:42) cephalexin [From Keflex] Allergy (Verified 10/28/18 13:42) Past Medical History - General Information source: Patient - I today - Social History Smoking Status: Former Smoker Chew tobacco use (# tins/day): No Frequency of alcohol use: None Drug Abuse: None Lives with: Family Family History: Arthritis, Malignancy, CAD, CVA, DM, Hyperlipidemia, Hypertension, Reviewed & Not Pertinent, Thyroid Disfunction Patient has suicidal ideation: No Patient has homicidal ideation: No - Past Medical History Cardiac Medical History: Reports: Hx Hypertension Pulmonary Medical History: Reports: Hx Asthma, Hx Bronchitis, Hx Pneumonia Renal/ Medical History: Denies: Hx Peritoneal Dialysis Musculoskeletal Medical History: Reports Hx Musculoskeletal Trauma Psychiatric Medical History: Reports: Hx Depression Past Surgical History: Reports: Hx Section - 3, Hx Cholecystectomy, Hx Gynecologic Surgery - 3 , Hx Hysterectomy, Hx Tubal Ligation, Other - Multiple abdominal wall hernia repair involving Pfannenstiel incision - Immunizations Immunizations up to date: Yes Hx Diphtheria, Pertussis, Tetanus Vaccination: - unsure of date Hx Pneumococcal Vaccination: 01/25/13 Review of Systems - Review of Systems Constitutional: No symptoms reported EENT: No symptoms reported Cardiovascular: No symptoms reported Respiratory: No symptoms reported Gastrointestinal: See HPI Genitourinary: No symptoms reported Female Genitourinary: No symptoms reported Musculoskeletal: No symptoms reported Skin: No symptoms reported Hematologic/Lymphatic: No symptoms reported Neurological/Psychological: No symptoms reported Physical Exam - Vital signs Vitals: Temp Pulse Resp BP Pulse Ox 98 F 70 18 154/100 H 97 11/04/18 18:44 11/04/18 18:44 11/04/18 18:44 11/04/18 18:44 11/04/18 18:44 - Notes Notes: GENERAL: Alert, interacts well. Appears mildly uncomfortable. HEAD: Normocephalic, atraumatic. EYES: Pupils equal, round, and reactive to light. Extraocular movements intact. ENT: Oral mucosa moist, tongue midline. Oropharynx unremarkable. Airway patent. Nares patent, no nasal septal hematoma, TM's intact. NECK: Full range of motion. Supple. Trachea midline. LUNGS: Clear to auscultation bilaterally, no wheezes, rales, or rhonchi. No respiratory distress. HEART: Regular rate and rhythm. No murmur ABDOMEN: There is a large suprapubic hernia which is soft but also tender on palpation, this appears to be reducible but patient will not allow me to fully reduce it. Patient is much more tender in the left lower quadrant with borderline guarding. Right side of the abdomen, upper abdomen unremarkable. No obvious distention, no rigidity, bowel sounds present. GENITOURINARY: Deferred EXTREMITIES: Moves all 4 extremities spontaneously. No edema, normal radial and dorsalis pedis pulses bilaterally. No cyanosis. BACK: no cervical, thoracic, lumbar midline tenderness. No saddle anesthesia, normal distal neurovascular exam. NEUROLOGICAL: Alert and oriented x3. Normal speech. [cranial nerves II through XII grossly intact]. PSYCH: Normal affect, normal mood. SKIN: Warm, dry, normal turgor. No rashes or lesions noted. Course - Re-evaluation Re-evalutation: Patient is tender in the left lower quadrant and mildly tender over the hernia. The hernia is not rigid, erythematous, and I can partially reduce as much as patient will allow me. Does not appear to be incarcerated. Leukocytosis at 15,000 with elevation of neutrophils but no bandemia. This is nonspecific given patient's recent prednisone use. Patient also recently completed an Augmentin course which would be good for colitis. Chemistry unremarkable. Lactic acid is borderline. Urinalysis with mildly elevated specific gravity. 11/05/18 01:35 CAT scan showing large hernia with small bowel but no obstruction, incarcerati on, or other acute finding. Discussed with Dr. Hinton. He is coming to see the patient. Dr. Hinton recommended additional IV fluids, repeat of lactic acid and white blood cell count, repeat x-ray, reevaluation of patient. Patient refused a rectal examination to check for rectal bleeding. After additional IV fluids lactic acid normalized. CBC is improving. Patient with improved examination. No evidence of incarceration, only mild to moderate abdominal tenderness on palpation. I called Dr. Hinton back, discussed. He recommended referral down to [place] to Dr. Colin on an outpatient basis with symptom management and return precautions in the meantime. I discussed this with patient in detail. Patient states satisfaction and agreement with plan. Stable at time of discharge. - Vital Signs Vital signs: Temp Pulse Resp BP Pulse Ox 98.0 F 68 20 152/94 H 98 11/05/18 05:18 11/05/18 05:18 11/05/18 05:18 11/05/18 05:18 11/05/18 05:18 - Laboratory Result Diagrams: 11/05/18 03:58 11/04/18 19:54 Laboratory results interpreted by me: 11/04/18 11/04/18 11/04/18 19:54 19:54 19:54 WBC 15.4 H RBC 5.44 H RDW 15.6 H Seg Neuts % (Manual) 87 H Lymphocytes % (Manual) 12 L Monocytes % (Manual) 1 L Abs Neuts (Manual) 13.4 H APTT 41.9 H Sodium 136.4 L Glucose 187 H Lactic Acid Urine Protein Urine Blood 11/04/18 11/04/18 11/04/18 19:54 19:54 23:42 WBC RBC RDW Seg Neuts % (Manual) Lymphocytes % (Manual) Monocytes % (Manual) Abs Neuts (Manual) APTT Sodium Glucose Lactic Acid 2.3 H 2.4 H Urine Protein 30 H Urine Blood SMALL H 11/05/18 03:58 WBC 13.1 H RBC RDW 15.5 H Seg Neuts % (Manual) Lymphocytes % (Manual) Monocytes % (Manual) Abs Neuts (Manual) 9.7 H APTT Sodium Glucose Lactic Acid Urine Protein Urine Blood Discharge - Discharge Clinical Impression: Abdominal pain Qualifiers: Abdominal location: lower abdomen, unspecified Qualified Code(s): R10.30 - Lower abdominal pain, unspecified Ventral hernia Qualifiers: Obstruction and gangrene presence: without obstruction or gangrene Qualified Code(s): K43.9 - Ventral hernia without obstruction or gangrene Condition: Stable Disposition: HOME, SELF-CARE Additional Instructions: There is a hernia with bowel in it small bowel in it but there is no obstruction or concerning findings seen on your evaluation today. Pneumonia has resolved on your x-ray as well. You have been provided with pain medication to take only if needed, if you do take it also take a stool softener, take the nausea medication if needed. Follow-up with the hernia specialist in [place] as recommended by Dr. Hinton who is the general surgeon who saw him ritu. Return if you worsen including if you develop hardening, redness, or severe pain over the hernia area, vomiting, fever, or any other concerning or worsening symptoms. Best Colin MD [id number] Prescriptions: Docusate Sodium [Colace 100 mg Capsule] 100 mg PO ASDIR PRN #30 capsule PRN Reason: Morphine Sulfate [Morphine Ir 15 Mg Tablet] 15 mg PO TID PRN #10 tablet PRN Reason: Promethazine HCl [Phenergan 25 mg Tablet] 25 mg PO Q6H PRN #20 tablet PRN Reason: Referrals: OLAF VASQUEZ MD [Primary Care Provider] - Follow up as needed
[2018-11-04 20:30] LABS: ANION GAP 11 (5-19)
[2018-11-04 20:50] LABS: ABSOLUTE LYMPHOCYTES# (MANUAL) 1.8 10^3/uL (0.5-4.7); ABSOLUTE MONOCYTES # (MANUAL) 0.2 10^3/uL (0.1-1.4); ABSOLUTE NEUTROPHILS# (MANUAL) 13.4 10^3/uL (1.7-8.2); BASOPHILS % (MANUAL) 0 % (0-2); EOSINOPHILS % (MANUAL) 0 % (0-6); LYMPHOCYTES % (MANUAL) 12 % (13-45); MONOCYTES % (MANUAL) 1 % (3-13); SEGMENTED NEUTROPHILS % (MAN) 87 % (42-78); TOTAL CELLS COUNTED 100
[2018-11-04 20:51] LABS: ANISOCYTOSIS SLIGHT; POLYCHROMASIA SLIGHT
[2018-11-04 20:52] LABS: PLATELET COMMENT ADEQUATE
[2018-11-04 20:53] LABS: HYPOCHROMASIA SLIGHT
[2018-11-04 20:55] LABS: POIKILOCYTOSIS SLIGHT; TEAR DROP CELLS SLIGHT
[2018-11-04 20:57] LABS: ALANINE AMINOTRANSFERASE 39 U/L (9-52); ALBUMIN 4.3 g/dL (3.5-5.0); ALKALINE PHOSPHATASE 85 U/L (38-126); ASPARTATE AMINO TRANSFERASE 20 U/L (14-36); BILIRUBIN,DIRECT 0.2 mg/dL (0.0-0.4); BILIRUBIN,TOTAL 0.3 mg/dL (0.2-1.3); BLOOD UREA NITROGEN 14 mg/dL (7-20); CALCIUM 9.8 mg/dL (8.4-10.2); CARBON DIOXIDE 25 mmol/L (22-30); CHLORIDE 100 mmol/L (98-107); GLUCOSE 187 mg/dL (75-110); LIPASE 84.7 U/L (23-300); POTASSIUM 4.7 mmol/L (3.6-5.0); SODIUM 136.4 mmol/L (137-145); TOTAL PROTEIN 7.3 g/dL (6.3-8.2)
[2018-11-04] MEDS ORDERED: HYDROMORPHONE HCL INJ/PF 2 MG/ML AMPULE IV ONE (22:22)
--- NOTE | 2018-11-05 01:04 | RADIOLOGY REPORT (SQ) ---
EXAM DESCRIPTION: CT ABDOMEN PELVIS WITH IV CONTRAST COMPLETED DATE/TME: 11/04/2018 00:00 CLINICAL HISTORY: 38 years Female, LLQ pain, leukocytosis, nausea Comparison:10/06/2015 Technique: IV and oral contrast. Coronal and sagittal reformat. This exam was performed according to our departmental dose-optimization program, which includes automated exposure control, adjustment of the mA and/or kV according to patient size and/or use of iterative reconstruction technique. [facility]: Dose Right [facility]: CareDose [facility]: Dose Right [facility]: Teradose 4D [facility]: [employer] LIMITATIONS: None Findings: 13 cm umbilical small bowel hernia without further complication. Cholecystectomy. No ascites. No pneumoperitoneum. No bowel obstruction. No evidence of appendicitis. Appendix not definitively discerned. No hydronephrosis or hydroureter. No renal/ureteral stone. Atelectasis/scar. Degenerative disc disease. Inferior thorax, liver, pancreas, spleen, adrenals, renal system, gastrointestinal tract, pelvic organs, lymphatics, vasculature, and musculoskeleton appear otherwise unremarkable. IMPRESSION: No acute findings. 13 cm umbilical small bowel hernia without further complication.
[2018-11-05] MEDS ORDERED: NORMAL SALINE 1000 ML 1,000 ML IV ONE ×2 (01:55)
--- NOTE | 2018-11-05 02:38 | RADIOLOGY REPORT (SQ) ---
EXAM DESCRIPTION: XR CHEST 1 VIEW COMPLETED DATE/TME: 11/05/2018 01:55 CLINICAL HISTORY: 38 years Female, elevated WBC, elevated lactic acid, ?pneumonia COMPARISON:08/18/2014 NUMBER OF VIEWS/TECHNIQUE: 1/AP FINDINGS: Adequate lung volume, clear parenchyma, normal cardiac silhouette, and intact bony thorax. IMPRESSION: No acute cardiopulmonary findings.
--- NOTE | 2018-11-05 03:29 | PDOC CONSULTATION ---
Consultation Consult Date: 11/05/18 Consult reason:: recurrent incisional hernia with LLQ pains History of Present Illness Admission Date/PCP: OLAF VASQUEZ MD Patient complains of: LLQ pains History of Present Illness: VERONICA HERCULES is a 38 year old female with history of recurrent incisional hernia post repair, was in the ED last week for pneumonia and given Augmentin and steroids. Yesterday morning c/o burning pains at the LLQ and had an episode of bloody BM then went to ED. She also c/o pains at the hernia site when specifically asked. She just had nausea no vomiting. Had CT scan of abd/pelvis which showed a hernia in the suprapubic area but no obstruction and no acute abdominal changes. A chest xray was just done which showed clearing of left sided pneumonia. She stopped smoking 3 weeks ago and has been coughing worse a week ago. Her WBC is 15,000 and Lactic Acid 2.3 and after a liter of saline went up to 2.4. Had initial incisional hernia repair done in July 2016 in [place] with mesh. Re-operated in December 2016 for an infected mesh and subsequient repair but patient not sure of mesh repair. She was told that the hernia is fixed "and she should not have problems with it". The hernia apparently recurred and worse since coughind a lot after stopped smoking 3 weeks ago. Past Medical History Cardiac Medical History: Reports: Hypertension Pulmonary Medical History: Reports: Asthma, Bronchitis, Pneumonia Psychiatric Medical History: Reports: Depression Past Surgical History Past Surgical History: Reports: Section - 3, Cholecystectomy, Hysterectomy, Tubal Ligation, Other - Multiple abdominal wall hernia repair involving Pfannenstiel incision Social History Smoking Status: Former Smoker Frequency of Alcohol Use: Occasional Hx Recreational Drug Use: No Hx Prescription Drug Abuse: No Family History Family History: Arthritis, Malignancy, CAD, CVA, DM, Hyperlipidemia, Hy pertension, Reviewed & Not Pertinent, Thyroid Disfunction Parental Family History Reviewed: Yes Children Family History Reviewed: No Sibling(s) Family History Reviewed.: No Medication/Allergy Home Medications: Docusate Sodium [Colace 100 mg Capsule] 100 mg PO BID #60 capsule 05/30/18 Hydrocodone/Acetaminophen [Hydrocodon-Acetaminophen 5-325] 1 each PO Q6 #14 tablet 05/30/18 RX: Ibuprofen 200 mg PO PRN PRN 08/28/18 Amoxicillin/Potassium Clav [Augmentin Xr 1,000-62.5 Tab] 2 each PO BID 7 Days tab.er.12h 10/28/18 Benzonatate [Tessalon Perles 100 mg Capsule] 100 mg PO Q8HP PRN #40 capsule 10/28/18 Nebulizer [Nebulizer Machine] 1 each MC ASDIR PRN #1 kit 10/28/18 RX: Albuterol Sulfate [Proair HFA Inhalation Aerosol 8.5 gm MDI] 2 puff IH Q4H PRN #1 mdi 10/28/18 RX: Albuterol Sulfate [Ventolin 0.083% Neb 2.5 mg/3 mL Ampul] 1 vial NEB Q4 #60 vial 10/28/18 RX: Prednisone [Deltasone 20 mg Tablet] 3 tab PO DAILY 5 Days tablet 10/28/18 Docusate Sodium [Colace 100 mg Capsule] 100 mg PO ASDIR PRN #30 capsule 11/05/18 Morphine Sulfate [Morphine Ir 15 Mg Tablet] 15 mg PO TID PRN #10 tablet 11/05/18 Promethazine HCl [Phenergan 25 mg Tablet] 25 mg PO Q6H PRN #20 tablet 11/05/18 Allergies/Adverse Reactions: adhesive tape Allergy (Verified 10/28/18 13:42) cephalexin [From Keflex] Allergy (Verified 10/28/18 13:42) Review of Systems Constitutional: PRESENT: night sweats Eyes: PRESENT: other - no visual/hearing changes Cardiovascular: PRESENT: other - no chest pains Respiratory: PRESENT: cough Gastrointestinal: PRESENT: abdominal pain, hematochezia Genitourinary: PRESENT: other - no dysuria Psychiatric: PRESENT: depression Physical Exam Vital Signs: Temp Pulse Resp BP Pulse Ox 98 F 70 18 142/109 H 97 11/04/18 18:44 11/04/18 18:44 11/05/18 02:46 11/05/18 02:46 11/05/18 02:46 Intake & Output 11/03/18 11/04/18 11/05/18 06:59 06:59 06:59 Intake Total 1000 Balance 1000 Weight 119.7 kg General appearance: PRESENT: mild distress, obese Head exam: PRESENT: atraumatic Eye exam: PRESENT: conjunctiva pink Mouth exam: PRESENT: dry mucosa Neck exam: PRESENT: full ROM Respiratory exam: PRESENT: clear to auscultation anny Cardiovascular exam: PRESENT: RRR Pulses: PRESENT: normal radial pulses Vascular exam: PRESENT: normal capillary refill GI/Abdominal exam: PRESENT: soft, tenderness - mid-LLQ Large incisional hernia with minimal tenderness when attempted to reduce Rectal exam: PRESENT: deferred Extremities exam: PRESENT: full ROM Musculoskeletal exam: PRESENT: ambulatory Neurological exam: PRESENT: alert, oriented to person, oriented to place, oriented to time, oriented to situation Psychiatric exam: PRESENT: appropriate affect Skin exam: PRESENT: normal color, warm Results Laboratory Results: 11/04/18 19:54 11/04/18 19:54 11/04/18 11/04/18 11/04/18 19:54 19:54 19:54 WBC 15.4 H RBC 5.44 H Hgb 15.2 Hct 43.8 MCV 81 MCH 28.0 MCHC 34.8 RDW 15.6 H Plt Count 325 Seg Neutrophils % Not Reportable Lymphocytes % Not Reportable Monocytes % Not Reportable Eosinophils % Not Reportable Basophils % Not Reportable Absolute Neutrophils Not Reportable Absolute Lymphocytes Not Reportable Absolute Monocytes Not Reportable Absolute Eosinophils Not Reportable Absolute Basophils Not Reportable Sodium 136.4 L Potassium 4.7 Chloride 100 Carbon Dioxide 25 Anion Gap 11 BUN 14 Creatinine 0.67 Est GFR ( Amer) > 60 Est GFR (Non-Af Amer) > 60 Glucose 187 H Lactic Acid 2.3 H Calcium 9.8 Total Bilirubin 0.3 AST 20 ALT 39 Alkaline Phosphatase 85 Total Protein 7.3 Albumin 4.3 Lipase 84.7 Urine Color Urine Appearance Urine pH Ur Specific Wallace Urine Protein Urine Glucose (UA) Urine Ketones Urine Blood Urine Nitrite Ur Leukocyte Esterase Urine WBC (Auto) Urine RBC (Auto) 11/04/18 11/04/18 19:54 23:42 WBC RBC Hgb Hct MCV MCH MCHC RDW Plt Count Seg Neutrophils % Lymphocytes % Monocytes % Eosinophils % Basophils % Absolute Neutrophils Absolute Lymphocytes Absolute Monocytes Absolute Eosinophils Absolute Basophils Sodium Potassium Chloride Carbon Dioxide Anion Gap BUN Creatinine Est GFR ( Amer) Est GFR (Non-Af Amer) Glucose Lactic Acid 2.4 H Calcium Total Bilirubin AST ALT Alkaline Phosphatase Total Protein Albumin Lipase Urine Color YELLOW Urine Appearance SLIGHTLY-CLOUDY Urine pH 6.0 Ur Specific Wallace 1.020 Urine Protein 30 H Urine Glucose (UA) NEGATIVE Urine Ketones NEGATIVE Urine Blood SMALL H Urine Nitrite NEGATIVE Ur Leukocyte Esterase NEGATIVE Urine WBC (Auto) 0 Urine RBC (Auto) 1 Impressions: Abdomen/Pelvis CT 11/04/18 00:00 IMPRESSION: No acute findings. 13 cm umbilical small bowel hernia without further complication. Chest X-Ray 11/05/18 01:55 IMPRESSION: No acute cardiopulmonary findings. Assessment & Plan - Diagnosis (1) non obstructed incarcerated incisional h Is this a current diagnosis for this admission?: Yes - Time Time Spent: 30 to 50 Minutes - Plan Summary Plan Summary: 38 yo female with resolving pneumonia came to ED for mid to LLQ burning pains with one time passage of blood per rectum with a non obstructed incisional hernia..Had nausea but no vomiting. Elevated WBC may be due to po steroids for pneumonia but elevated Lactic Acid. Ct scan of abdomen with no acute changes. Has a non obstructed incarcerated incisional hernia. IMP: No evidence of surgical abdomen Pains LLQ probaly due to Colitis with passage of blood per rectum. She said she had an episode of diarrhea about 3 days prior. Recommendation: 1) Hydrate then repeat LA 2) If document bleed then consult GI for endoscopy 3) the recurrent incisional hernia can be repaired electively ideally by a "hernia surgeon". They have one in [facility].
[2018-11-05 04:09] LABS: HEMATOCRIT 41.2 % (36.0-47.0); HEMOGLOBIN 13.9 g/dL (12.0-15.5); MEAN CORPUSCULAR HEMOGLOBIN 27.6 pg (27.0-33.4); MEAN CORPUSCULAR HGB CONC 33.8 g/dL (32.0-36.0); MEAN CORPUSCULAR VOLUME 82 fl (80-97); PLATELET COUNT 275 10^3/uL (150-450); RED BLOOD COUNT 5.05 10^6/uL (3.72-5.28); RED CELL DISTRIBUTION WIDTH 15.5 % (11.5-14.0); WHITE BLOOD COUNT 13.1 10^3/uL (4.0-10.5)
[2018-11-05 04:26] LABS: ABSOLUTE LYMPHOCYTES# (MANUAL) 2.8 10^3/uL (0.5-4.7); ABSOLUTE MONOCYTES # (MANUAL) 0.7 10^3/uL (0.1-1.4); ABSOLUTE NEUTROPHILS# (MANUAL) 9.7 10^3/uL (1.7-8.2); BASOPHILS % (MANUAL) 0 % (0-2); EOSINOPHILS % (MANUAL) 0 % (0-6); LYMPHOCYTES % (MANUAL) 16 % (13-45); MONOCYTES % (MANUAL) 5 % (3-13); PLATELET COMMENT ADEQUATE; RBC MORPHOLOGY COMMENT NORMO-CYTIC/CHROMIC; SEGMENTED NEUTROPHILS % (MAN) 74 % (42-78); TOTAL CELLS COUNTED 100
[2018-11-05] MEDS ORDERED: HYDROCODONE/ACETAMINOPHEN 5-325 MG (6 TAB/ER DISP) PO PRN (04:51)
[2018-11-05] MEDS ORDERED: ONDANSETRON ODT 4 MG TAB (6 TAB/ER DISP) PO PRN (04:51)
[2018-11-05 05:19] VITALS: BP 152/94
== END 2018-11-05 05:19 | disposition home or self-care (01) ==
LOC: ER 18:30
DX: K43.9 Ventral hernia without obstruction or gangrene (principal); R10.30 Lower abdominal pain, unspecified; I10 Essential (primary) hypertension; Z90.710 Acquired absence of both cervix and uterus; Z88.3 Allergy status to other anti-infective agents
CPT/HCPCS: 99284; 96361; 96374; 96375; 36415; 87086; 83605 ×2; 83690; 85025; 85610; 85730; 80053; 81001; 71045; 74177; J2270; J1170; J2405; J7030 ×2

== ENCOUNTER 2018-11-28 19:10 | Emergency (ER) | payer SELFPAY ==
[2018-11-28] MEDS ORDERED: NORMAL SALINE 1000 ML 1,000 ML IV ONE (19:23)
--- NOTE | 2018-11-28 19:23 | ER Document Report ---
ED Medical Screen (RME) - General Chief Complaint: Abdominal Pain Stated Complaint: HERNIA PAIN/ABDOMINAL PAIN,NAUSEOUS Time Seen by Provider: 11/28/18 19:19 Primary Care Provider: OLAF VASQUEZ MD [Primary Care Provider] - Follow up as needed Notes: Patient is a 38-year-old female that presents to the emergency department for chief complaint of abdominal pain associated with large ventral hernia. Patient states that her pain is gotten significantly worse in the past week since she started a new job, describes the pain as severe and sharp and stabbing in nature. ROS: Other than noted above, the 12 point review of systems was reviewed with the patient and were negative, all pertinent findings are included in the HPI. PHYSICAL EXAMINATION: Vital signs reviewed. GENERAL: Obese female, appears to be uncomfortable HEAD: Atraumatic, normocephalic. EYES: Pupils equal round extraocular movements intact, conjunctiva are normal. ENT: Nares patent NECK: Normal range of motion CV: Heart regular rate and rhythm LUNGS: No respiratory distress Abdomen: Obese, tender to palpate particularly over the lower portion where she has a hernia present. Musculoskeletal: Normal range of motion NEUROLOGICAL: Normal speech PSYCH: Normal mood, normal affect. MDM: Patient seen and examined for rapid initial assessment. Vital signs reviewed. A comprehensive ED assessment and evaluation of the patient, analysis of test results and completion of the medical decision making process will be conducted by additional ED providers. *Note is created using voice recognition software and may contain spelling, sy ntax or grammatical errors. TRAVEL OUTSIDE OF THE [place] IN LAST 30 DAYS: No - Related Data Allergies/Adverse Reactions: adhesive tape Allergy (Verified 11/28/18 19:19) cephalexin [From Keflex] Allergy (Verified 11/28/18 19:19) Past Medical History - Past Medical History Cardiac Medical History: Reports: Hx Hypertension Pulmonary Medical History: Reports: Hx Asthma, Hx Bronchitis, Hx Pneumonia Renal/ Medical History: Denies: Hx Peritoneal Dialysis Musculoskeltal Medical History: Reports Hx Musculoskeletal Trauma Psychiatric Medical History: Reports: Hx Depression Past Surgical History: Reports: Hx Section - 3, Hx Cholecystectomy, Hx Gynecologic Surgery - 3 , Hx Hysterectomy, Hx Tubal Ligation, Other - Mu ltiple abdominal wall hernia repair involving Pfannenstiel incision - Immunizations Immunizations up to date: Yes Hx Diphtheria, Pertussis, Tetanus Vaccination: - unsure of date Physical Exam - Vital signs Vitals: Temp Pulse Resp BP Pulse Ox 99.4 F 87 20 166/108 H 97 11/28/18 19:16 11/28/18 19:16 11/28/18 19:16 11/28/18 19:16 11/28/18 19:16 Course - Vital Signs Vital signs: Temp Pulse Resp BP Pulse Ox 99.4 F 87 20 166/108 H 97 11/28/18 19:16 11/28/18 19:16 11/28/18 19:16 11/28/18 19:16 11/28/18 19:16 Doctor's Discharge - Discharge Referrals: OLAF VASQUEZ MD [Primary Care Provider] - Follow up as needed
[2018-11-28] MEDS ORDERED: MORPHINE SULFATE 10 MG/ML INJ IV ONE (19:24)
[2018-11-28] MEDS ORDERED: ONDANSETRON HCL INJ/PF 4 MG/2 ML SDV IV ONE (19:24)
[2018-11-28 20:06] LABS: ABSOLUTE EOSINOPHILS # (AUTO) 0.4 10^3/uL (0.0-0.6); ABSOLUTE MONOCYTES (AUTO) 0.5 10^3/uL (0.1-1.4); ABSOLUTE NEUT (AUTO) 4.2 10^3/uL (1.7-8.2); BASOPHILS % (AUTO) 0.5 % (0-2); EOSINOPHILS % (AUTO) 5.2 % (0-6); HEMATOCRIT 38.9 % (36.0-47.0); HEMOGLOBIN 13.5 g/dL (12.0-15.5); LYMPHOCYTES % (AUTO) 28.1 % (13-45); MEAN CORPUSCULAR HEMOGLOBIN 28.3 pg (27.0-33.4); MEAN CORPUSCULAR HGB CONC 34.7 g/dL (32.0-36.0); MEAN CORPUSCULAR VOLUME 82 fl (80-97); MONOCYTES % (AUTO) 6.5 % (3-13); PLATELET COUNT 228 10^3/uL (150-450); RED BLOOD COUNT 4.77 10^6/uL (3.72-5.28); RED CELL DISTRIBUTION WIDTH 16.1 % (11.5-14.0); SEGMENTED NEUTROPHILS % (AUTO) 59.7 % (42-78); TOTAL CELLS COUNTED % (AUTO) 100 %; WHITE BLOOD COUNT 7.1 10^3/uL (4.0-10.5)
[2018-11-28 20:29] LABS: ALANINE AMINOTRANSFERASE 33 U/L (9-52); ALKALINE PHOSPHATASE 73 U/L (38-126); ANION GAP 8 (5-19); ASPARTATE AMINO TRANSFERASE 29 U/L (14-36); BILIRUBIN,DIRECT 0.3 mg/dL (0.0-0.4); BILIRUBIN,TOTAL 0.5 mg/dL (0.2-1.3); BLOOD UREA NITROGEN 7 mg/dL (7-20); CALCIUM 9.3 mg/dL (8.4-10.2); CARBON DIOXIDE 27 mmol/L (22-30); CHLORIDE 105 mmol/L (98-107); GLUCOSE 112 mg/dL (75-110); POTASSIUM 4.2 mmol/L (3.6-5.0); SODIUM 139.7 mmol/L (137-145); TOTAL PROTEIN 6.7 g/dL (6.3-8.2)
[2018-11-28 20:57] LABS: APPEARANCE,URINE CLEAR; BILIRUBIN,URINE NEGATIVE (NEGATIVE); COLOR,URINE YELLOW; GLUCOSE, URINE NEGATIVE (NEGATIVE); KETONES,URINE NEGATIVE (NEGATIVE); LEUKOCYTE ESTERASE,URINE NEGATIVE (NEGATIVE); NITRITE,URINE NEGATIVE (NEGATIVE); PROTEIN,URINE NEGATIVE (NEGATIVE); URINE SPECIFIC GRAVITY 1.018
[2018-11-28] MEDS ORDERED: TRAMADOL HCL 50 MG TABLET PO ONE (21:26)
--- NOTE | 2018-11-28 21:26 | ER Document Report ---
ED General - General Chief Complaint: Abdominal Pain Stated Complaint: HERNIA PAIN/ABDOMINAL PAIN,NAUSEOUS Time Seen by Provider: 11/28/18 19:19 Primary Care Provider: OLAF VASQUEZ MD [Primary Care Provider] - Follow up in 3-5 days Notes: Patient is a 38-year-old female with a past medical history of hypertension, m orbid obesity, prior cholecystectomy, , has a chronic ventral hernia above the pubic symphysis who presents with pain to the hernia. Describes it as a throbbing, aching, constant pain worsened by standing or movement. Moderately improved by abdominal binder. Associated nausea but no vomiting. Continues to have normal bowel movements. States the hernia remains soft, compressible. Has been following with the general surgeons Esteban evans, was instructed that the hernia repair would not be undertaken until she lost weight. Came to the emergency department tonight as she states the pain is worse than usual. Has been having this pain for at least 4-5 months. TRAVEL OUTSIDE OF THE [place] IN LAST 30 DAYS: No - Related Data Allergies/Adverse Reactions: adhesive tape Allergy (Verified 11/28/18 19:19) cephalexin [From Keflex] Allergy (Verified 11/28/18 19:19) Past Medical History - General Information source: Patient - Social History Smoking Status: Former Smoker Frequency of alcohol use: None Drug Abuse: None Lives with: Spouse/Significant other Family History: Arthritis, Malignancy, CAD, CVA, DM, Hyperlipidemia, Hypertension, Reviewed & Not Pertinent, Thyroid Disfunction Patient has suicidal ideation: No Patient has homicidal ideation: No - Past Medical History Cardiac Medical History: Reports: Hx Hypertension Pulmonary Medical History: Reports: Hx Asthma, Hx Bronchitis, Hx Pneumonia Renal/ Medical History: Denies: Hx Peritoneal Dialysis Musculoskeletal Medical History: Reports Hx Musculoskeletal Trauma Psychiatric Medical History: Reports: Hx Depression Past Surgical History: Reports: Hx Section - 3, Hx Cholecystectomy, Hx Gynecologic Surgery - 3 , Hx Hysterectomy, Hx Tubal Ligation, Other - Multiple abdominal wall hernia repair involving Pfannenstiel incision - Immunizations Immunizations up to date: Yes Hx Diphtheria, Pertussis, Tetanus Vaccination: - unsure of date Hx Pneumococcal Vaccination: 01/25/13 Review of Systems - Review of Systems Notes: Constitutional: Negative for fever. HENT: Negative for sore throat. Eyes: Negative for visual changes. Cardiovascular: Negative for chest pain. Respiratory: Negative for shortness of breath. Gastrointestinal: Positive for abdominal pain and nausea Genitourinary: Negative for dysuria. Musculoskeletal: Negative for back pain. Skin: Negative for rash. Neurological: Negative for headaches, weakness or numbness. 10 point ROS negative except as marked above and in HPI. Physical Exam - Vital signs Vitals: Temp Pulse Resp BP Pulse Ox 99.4 F 87 20 166/108 H 97 11/28/18 19:16 11/28/18 19:16 11/28/18 19:16 11/28/18 19:16 11/28/18 19:16 Interpretation: Hypertensive Notes: PHYSICAL EXAMINATION: GENERAL: Well-appearing, well-nourished and in no acute distress. HEAD: Atraumatic, normocephalic. EYES: Pupils equal round and reactive to light, extraocular movements intact, sclera anicteric, conjunctiva are normal. ENT: nares patent, oropharynx clear without exudates. Moist mucous membranes. NECK: Normal range of motion, supple without lymphadenopathy LUNGS: Breath sounds clear to auscultation bilaterally and equal. No wheezes rales or rhonchi. HEART: Regular rate and rhythm without murmurs ABDOMEN: Soft, mild tenderness over a low ventral hernia. The hernia itself is soft, compressible and easily reduced with gentle pressure. Normoactive bowel sounds. No guarding, no rebound. No masses appreciated. EXTREMITIES: Normal range of motion, no pitting or edema. No cyanosis. NEUROLOGICAL: No focal neurological deficits. Moves all extremities spontaneously and on command. PSYCH: Normal mood, normal affect. SKIN: Warm, Dry, normal turgor, no rashes or lesions noted. Course - Re-evaluation Re-evalutation: 11/28/18 21:26 Patient presents for the third time in the last 3 months for complaints of a eugenia tral hernia with associated pain. The hernia is easily reducible with gentle compression, no evidence of incarceration or strangulation. No indication for imaging. Labs unremarkable. I had a prolonged conversation with the patient and her about the need for weight loss both for the ability to proceed with surgery as her surgeon has informed her already on multiple occasions but as well as for her overall health. She has a BMI of 42, is 121 kg and is actually gained weight in the past several months. The patient is noted to be drinking a calorie dense shake while I am in the room again which I have advised her that she needs to start proceeding with serious dietary changes if she wishes to proceed with surgery for correction of this hernia for which she has been seen for on multiple occasions. I provided her with an abdominal binder, I have reviewed healthy eating habits and I am encouraging 3-4 pounds of weight loss weekly until she has lost the appropriate amount of weight that her surgeon has informed her she would need to do in order to proceed with an elective surg moody for her hernia repair. At this time will discharge with return precautions and follow-up recommendations. Verbal discharge instructions given a the bedside and opportunity for questions given. Medication warnings reviewed. Patient is in agreement with this plan and has verbalized understanding of return precautions and the need for primary care follow-up in the next 24-72 hours. - Vital Signs Vital signs: Temp Pulse Resp BP Pulse Ox 97.8 F 69 18 143/98 H 96 11/28/18 22:09 11/28/18 22:09 11/28/18 22:09 11/28/18 22:09 11/28/18 22:09 - Laboratory Result Diagrams: 11/28/18 19:53 11/28/18 19:53 Laboratory results interpreted by me: 11/28/18 11/28/18 11/28/18 19:45 19:53 19:53 RDW 16.1 H Glucose 112 H Urine Urobilinogen 4.0 H Discharge - Discharge Clinical Impression: Chronic abdominal pain, Morbid obesity Ventral hernia Qualifiers: Obstruction and gangrene presence: without obstruction or gangrene Qualified Code(s): K43.9 - Ventral hernia without obstruction or gangrene Condition: Stable Disposition: HOME, SELF-CARE Additional Instructions: Your seen today for an abdominal hernia uncertain. Please return if you develop vomiting, stopped having bowel movements, develop fever greater than 100.4 F, have dramatically worsening pain, the area becomes firm or is unable to be compressed, or have any other symptoms that are worrisome to you. As we discussed today, please strongly consider losing weight. Your obesity will result in a shorter life and serious diagnoses including heart attacks, s troke, diabetes, high blood pressure, high cholesterol, kidney failure, and will also result in a much less enjoyable life due to these chronic conditions. This will also allow me to proceed with getting the hernia repaired. Focus on gradual life style changes including removing sugared beverages and processed foods from your diet and at least 30 minutes of moderate activity daily. Try to target 4-5lbs of weight loss per month. Referrals: OLAF VASQUEZ MD [Primary Care Provider] - Follow up in 3-5 days
[2018-11-28 22:10] VITALS: BP 143/98
== END 2018-11-28 22:25 | disposition home or self-care (01) ==
LOC: ER 19:10
DX: K43.9 Ventral hernia without obstruction or gangrene (principal); E66.01 Morbid (severe) obesity due to excess calories; Z68.41 Body mass index [BMI] 40.0-44.9, adult; G89.29 Other chronic pain; R10.9 Unspecified abdominal pain; R11.0 Nausea; Z90.49 Acquired absence of other specified parts of digestive tract
CPT/HCPCS: 99284; 96361; 96374; 96375; 36415; 83605; 83690; 85025; 80053; 81001; J2270; J2405; J7030

== ENCOUNTER 2018-12-31 17:39 | Emergency (ER) | payer SELFPAY ==
[2018-12-31] MEDS ORDERED: ONDANSETRON 4 MG TAB.RAPDIS PO ONE (18:57)
--- NOTE | 2018-12-31 18:58 | ER Document Report ---
ED Medical Screen (RME) - General Chief Complaint: Abscess Stated Complaint: SHOULDER/ARM PAIN, POSSIBLE ABSCESS Time Seen by Provider: 12/31/18 18:53 Primary Care Provider: OLAF VASQUEZ MD [Primary Care Provider] - Follow up as needed Mode of Arrival: Ambulatory Information source: Patient Notes: Patient presents complaining of right posterior thoracic, scapular pain that radiates down her right upper extremity. Patient states pain started today. Patient denies any injury. Patient does complain of shortness of breath but attributes this to her chronic asthma and bronchitis. Patient also complains of some nausea and pain to her lower abdomen. Patient has a previous ventral hernia repair with subsequent herniation. Patient states that she has had foul- smelling drainage from an opening in the wound. Patient does complain of tenderness to her hernia. I have greeted and performed a rapid initial assessment of this patient. A comprehensive ED assessment and evaluation of the patient, analysis of test results and completion of the medical decision making process will be conducted by additional ED providers. hx: Hypertension, asthma, hernia repair, cholecystectomy, morbid obesity TRAVEL OUTSIDE OF THE [place] IN LAST 30 DAYS: No - Related Data Allergies/Adverse Reactions: adhesive tape Allergy (Verified 12/31/18 18:55) cephalexin [From Keflex] Allergy (Verified 12/31/18 18:55) Past Medical History - Past Medical History Cardiac Medical History: Reports: Hx Hypertension Pulmonary Medical History: Reports: Hx Asthma, Hx Bronchitis, Hx Pneumonia Renal/ Medical History: Denies: Hx Peritoneal Dialysis Musculoskeltal Medical History: Reports Hx Musculoskeletal Trauma Psychiatric Medical History: Reports: Hx Depression Past Surgical History: Reports: Hx Section - 3, Hx Cholecystectomy, Hx Gynecologic Surgery - 3 , Hx Hysterectomy, Hx Tubal Ligation, Other - Multiple abdominal wall hernia repair involving Pfannenstiel incision - Immunizations Immunizations up to date: Yes Hx Diphtheria, Pertussis, Tetanus Vaccination: - unsure of date Physical Exam - Vital signs Vitals: Temp Pulse Resp BP Pulse Ox 98.1 F 65 18 195/109 H 99 12/31/18 17:45 12/31/18 17:45 12/31/18 17:45 12/31/18 17:45 12/31/18 17:45 - Abdominal Inspection: Morbidly Obese Distension: Distended - ventral hernia under pannus - Back Back: Tender - Right posterior thoracic back tenderness worse with movement of right upper extremity Course - Vital Signs Vital signs: Temp Pulse Resp BP Pulse Ox 98.1 F 65 18 195/109 H 99 12/31/18 17:45 12/31/18 17:45 12/31/18 17:45 12/31/18 17:45 12/31/18 17:45 Doctor's Discharge - Discharge Referrals: OLAF VASQUEZ MD [Primary Care Provider] - Follow up as needed
--- NOTE | 2018-12-31 19:32 | RADIOLOGY REPORT (SQ) ---
EXAM DESCRIPTION: CHEST 2 VIEWS COMPLETED DATE/TIME: 12/31/2018 7:19 pm REASON FOR STUDY: r thoracic pain COMPARISON: 11/05/2018 EXAM PARAMETERS: NUMBER OF VIEWS: two views TECHNIQUE: Digital Frontal and Lateral radiographic views of the chest acquired. RADIATION DOSE: NA LIMITATIONS: none FINDINGS: LUNGS AND PLEURA: No opacities, masses or pneumothorax. No pleural effusion. MEDIASTINUM AND HILAR STRUCTURES: No masses or contour abnormalities. HEART AND VASCULAR STRUCTURES: Heart normal size. No evidence for failure. BONES: No acute findings. HARDWARE: None in the chest. OTHER: No other significant finding. IMPRESSION: NO ACUTE RADIOGRAPHIC FINDING IN THE CHEST. TECHNICAL DOCUMENTATION: JOB ID: [id number] [employer]- All Rights Reserved Reading location - IP/workstation name: [email or web address]
[2018-12-31 20:22] LABS: ABSOLUTE BASOPHILS # (AUTO) 0.1 10^3/uL (0.0-0.2); ABSOLUTE EOSINOPHILS # (AUTO) 0.8 10^3/uL (0.0-0.6); ABSOLUTE LYMPHOCYTES (AUTO) 2.3 10^3/uL (0.5-4.7); ABSOLUTE MONOCYTES (AUTO) 0.4 10^3/uL (0.1-1.4); ABSOLUTE NEUT (AUTO) 4.7 10^3/uL (1.7-8.2); BASOPHILS % (AUTO) 0.7 % (0-2); EOSINOPHILS % (AUTO) 9.7 % (0-6); HEMATOCRIT 41.4 % (36.0-47.0); HEMOGLOBIN 14.3 g/dL (12.0-15.5); LYMPHOCYTES % (AUTO) 27.8 % (13-45); MEAN CORPUSCULAR HEMOGLOBIN 27.9 pg (27.0-33.4); MEAN CORPUSCULAR HGB CONC 34.6 g/dL (32.0-36.0); MEAN CORPUSCULAR VOLUME 81 fl (80-97); MONOCYTES % (AUTO) 4.6 % (3-13); PLATELET COUNT 260 10^3/uL (150-450); RED BLOOD COUNT 5.11 10^6/uL (3.72-5.28); RED CELL DISTRIBUTION WIDTH 15.6 % (11.5-14.0); SEGMENTED NEUTROPHILS % (AUTO) 57.2 % (42-78); TOTAL CELLS COUNTED % (AUTO) 100 %; WHITE BLOOD COUNT 8.2 10^3/uL (4.0-10.5)
[2018-12-31 20:43] LABS: APPEARANCE,URINE SLIGHTLY-CLOUDY; BILIRUBIN,URINE NEGATIVE (NEGATIVE); COLOR,URINE YELLOW; GLUCOSE, URINE NEGATIVE (NEGATIVE); KETONES,URINE NEGATIVE (NEGATIVE); LEUKOCYTE ESTERASE,URINE TRACE (NEGATIVE); NITRITE,URINE NEGATIVE (NEGATIVE); PROTEIN,URINE NEGATIVE (NEGATIVE); URINE SPECIFIC GRAVITY 1.015
[2018-12-31 20:44] LABS: BLOOD UREA NITROGEN 9 mg/dL (7-20); CALCIUM 9.7 mg/dL (8.4-10.2); GLUCOSE 105 mg/dL (75-110)
[2018-12-31 20:45] LABS: ALANINE AMINOTRANSFERASE 45 U/L (9-52); ALBUMIN 3.8 g/dL (3.5-5.0); ALKALINE PHOSPHATASE 75 U/L (38-126); ANION GAP 10 (5-19); ASPARTATE AMINO TRANSFERASE 26 U/L (14-36); BILIRUBIN,DIRECT 0.3 mg/dL (0.0-0.4); BILIRUBIN,TOTAL 0.5 mg/dL (0.2-1.3); CARBON DIOXIDE 26 mmol/L (22-30); CHLORIDE 103 mmol/L (98-107); POTASSIUM 4.2 mmol/L (3.6-5.0); SODIUM 138.8 mmol/L (137-145); TOTAL PROTEIN 6.8 g/dL (6.3-8.2)
[2018-12-31] MEDS ORDERED: OXYCODONE-ACETAMINOPHEN 5-325 MG TABLET PO ONE (21:02)
[2018-12-31] MEDS ORDERED: AMLODIPINE BESYLATE 10 MG TABLET PO ONE (21:02)
[2018-12-31] MEDS ORDERED: IPRATROPIUM/ALBUTEROL 0.5-2.5 MG/3 ML AMPUL NEB ONE ×2 (21:03→22:37)
--- NOTE | 2018-12-31 21:24 | EKG REPORT ---
SEVERITY:- NORMAL ECG - SINUS RHYTHM : Confirmed by: Analisa Sumner MD 31-Dec-2018 21:24:37
[2018-12-31] MEDS ORDERED: NORMAL SALINE 1000 ML 1,000 ML IV ONE (21:29)
[2018-12-31] MEDS ORDERED: ONDANSETRON HCL INJ/PF 4 MG/2 ML SDV IV ONE (21:33)
--- NOTE | 2018-12-31 22:00 | RADIOLOGY REPORT (SQ) ---
EXAM DESCRIPTION: XR SHOULDER 2 OR MORE VIEWS COMPLETED DATE/TME: 12/31/2018 21:04 CLINICAL HISTORY: 38 years, Female, right shoulder pain COMPARISON: None. FINDINGS: 3 views of the right shoulder. No acute fracture or dislocation. Normal osseous mineralization. No acute abnormalities of the visualized osseous hemithorax. IMPRESSION: 1. No acute fracture or dislocation. copyright 2010 [employer]- All Rights Reserved
[2019-01-01] MEDS ORDERED: METOCLOPRAMIDE HCL INJ/PF 10 MG/2 ML SDV IV ONE (00:24)
[2019-01-01] MEDS ORDERED: DIPHENHYDRAMINE HCL 50 MG/ML VIAL IV ONE (00:25)
--- NOTE | 2019-01-01 01:01 | RADIOLOGY REPORT (SQ) ---
EXAM DESCRIPTION: CT ABDOMEN PELVIS WITH IV CONTRAST COMPLETED DATE/TME: 01/01/2019 00:00 CLINICAL HISTORY: 38 years, Female, abd pain. CREAT 0.68 COMPARISON: 11/05/2018 TECHNIQUE: Axial CT images of the abdomen and pelvis were obtained after the administration of IV and oral contrast. DLP [id number] Images stored on PACS. All CT scanners at this facility use dose modulation, iterative reconstruction, and/or weight based dosing when appropriate to reduce radiation dose to as low as reasonably achievable (ALARA). [facility]: Dose Right [facility]: CareDose [facility]: Dose Right [facility]: Teradose 4D [facility]: Smart Family Pet LIMITATIONS: None. FINDINGS: The lung bases are clear. The liver is hypodense. Cholecystectomy. The pancreas, spleen, adrenal glands, and kidneys appear normal. There is no hydronephrosis or hydroureter. There is no intraperitoneal free air or fluid. There is no lymphadenopathy. The abdominal aorta is normal in caliber. The stomach is unremarkable. Again noted is a ventral hernia containing small bowel with no evidence of bowel obstruction or bowel ischemia. The appendix is not uniquely identified, however there are no pericecal inflammatory changes. The colon is incompletely distended. Hysterectomy. The urinary bladder is unremarkable. The bones are unremarkable. IMPRESSION: No acute findings. Stable ventral hernia containing small bowel with no evidence of bowel obstruction or bowel ischemia. TECHNICAL DOCUMENTATION: Quality ID # [id number]: Final reports with documentation of one or more dose reduction techniques (e.g., Automated exposure control, adjustment of the mA and/or kV according to patient size, use of iterative reconstruction technique) copyright 2011 [employer]- All Rights Reserved
[2019-01-01] MEDS ORDERED: ALBUTEROL SULFATE HFA (90 MCG/PUFF) 8 GM MDI (1 MDI/ER DISP) IH PRN (02:10)
--- NOTE | 2019-01-01 02:15 | ER Document Report ---
ED General - General Chief Complaint: Abscess Stated Complaint: SHOULDER/ARM PAIN, POSSIBLE ABSCESS Time Seen by Provider: 12/31/18 18:53 Primary Care Provider: CHACHA YUAN MD [ACTIVE STAFF] - Follow up tomorrow (This is the number of the surgical clinic [facility]. Want you to call the clinic tomorrow and tell them you are in the ER for your hernia is seen as follow-up evaluation and possible repair) OLAF VASQUEZ MD [Primary Care Provider] - Follow up as needed Mode of Arrival: Ambulatory Information source: Patient Notes: This is a 38-year-old female with a history of asthma, hypertension. Patient does have a history of an abdominal wall hernia as well. The abdominal wall hernia has been reducible. 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 She denies any fever, chills. He also states that she is been having wheezing today. And she is also concerned about her hernia. There is been no nausea, vomiting or abdominal pain. TRAVEL OUTSIDE OF THE [place] IN LAST 30 DAYS: No - HPI Onset: Just prior to arrival Onset/Duration: Gradual Quality of pain: Dull Severity: Moderate Pain Level: 3 Associated symptoms: Shortness of breath. denies: Chest pain, Fever Exacerbated by: Movement Relieved by: Denies Similar symptoms previously: Yes Recently seen / treated by doctor: Yes - Related Data Allergies/Adverse Reactions: adhesive tape Allergy (Verified 12/31/18 18:55) cephalexin [From Keflex] Allergy (Verified 12/31/18 18:55) Past Medical History - General Information source: Patient - Social History Smoking Status: Current Every Day Smoker Cigarette use (# per day): Yes - Half a pack per day Chew tobacco use (# tins/day): No Frequency of alcohol use: Occasional Drug Abuse: None Lives with: Family Family History: Arthritis, Malignancy, CAD, CVA, DM, Hyperlipidemia, Hypertension, Reviewed & Not Pertinent, Thyroid Disfunction Patient has suicidal ideation: No Patient has homicidal ideation: No - Past Medical History Cardiac Medical History: Reports: Hx Hypertension Pulmonary Medical History: Reports: Hx Asthma, Hx Bronchitis, Hx Pneumonia Renal/ Medical History: Denies: Hx Peritoneal Dialysis Musculoskeletal Medical History: Reports Hx Musculoskeletal Trauma Psychiatric Medical History: Reports: Hx Depression Past Surgical History: Reports: Hx Section - 3, Hx Cholecystectomy, Hx Gynecologic Surgery - 3 , Hx Hysterectomy, Hx Tubal Ligation, Other - Multiple abdominal wall hernia repair involving Pfannenstiel incision - Immunizations Immunizations up to date: Yes Hx Diphtheria, Pertussis, Tetanus Vaccination: - unsure of date Hx Pneumococcal Vaccination: 01/25/13 Review of Systems - Review of Systems Constitutional: denies: Chills, Fever EENT: No symptoms reported Cardiovascular: No symptoms reported Respiratory: See HPI Gastrointestinal: See HPI Genitourinary: No symptoms reported Female Genitourinary: No symptoms reported Musculoskeletal: See HPI Skin: No symptoms reported Hematologic/Lymphatic: No symptoms reported Neurological/Psychological: No symptoms reported Physical Exam - Vital signs Vitals: Temp Pulse Resp BP Pulse Ox 98.1 F 65 18 195/109 H 99 12/31/18 17:45 12/31/18 17:45 12/31/18 17:45 12/31/18 17:45 12/31/18 17:45 Notes: Physical exam: GENERAL: 38-year-old female, alert and oriented x3, hypertensive. Resting in stretcher. HEAD: Atraumatic, normocephalic. EYES: Pupils equal round and reactive to light, extraocular movements intact, sclera anicteric, conjunctiva are normal. ENT: TMs normal, nares patent, oropharynx clear without exudates. Moist mucous membranes. NECK: Normal range of motion, supple without obvious mass or JVD. LUNGS: Bilateral wheezing HEART: Regular rate and rhythm without murmurs, rubs or gallops. ABDOMEN: Soft, normoactive bowel sounds. No tenderness to palpation. No guarding, no rebound. Patient does have an infraumbilical hernia which is reducible. There is no tenderness. There is no erythema of the abdominal wall. EXTREMITIES: Patient does have pain with range of motion of the right shoulder. There is no erythema or warmth over the shoulder. Tenderness to palpation over the shoulder. NEUROLOGICAL: Cranial nerves II through XII grossly intact. Normal speech, moving all extremities. PSYCH: Normal mood, normal affect. SKIN: Warm, Dry, normal turgor, no rashes or lesions noted. Course - Re-evaluation Re-evalutation: 01/01/19 04:15 A lactic acid was sent from triage and it was elevated. It was repeated and is normal. Each of the patient's problems have been addressed: Wheezing: Patient given nebulizer with good results. We will send her home with an inhaler. Hypertension: Patient given Norvasc. She is on hydrochlorothiazide and will continue that. She is advised to follow-up with her primary care doctor. Right shoulder pain: This is clearly related to movement and have advised her to take ibuprofen for the pain. I have given her something a little bit stronger for more relief. Again, advised her to follow-up with her primary care doctor. Hernia: She is had this for a while and it is fully reducible and has been fully reducible. CT shows no evidence of inflammation. Patient is no nausea or vomiting. I have given her the number of the surgical clinic. - Vital Signs Vital signs: Temp Pulse Resp BP Pulse Ox 98.0 F 67 18 147/83 H 95 01/01/19 02:17 01/01/19 02:17 01/01/19 02:17 01/01/19 02:17 01/01/19 02:17 - Laboratory Result Diagrams: 12/31/18 20:02 12/31/18 20:02 Laboratory results interpreted by me: 12/31/18 12/31/18 12/31/18 20:02 20:02 20:02 RDW 15.6 H Eosinophils % 9.7 H Absolute Eosinophils 0.8 H Lactic Acid 3.5 H Urine Blood SMALL H Urine Urobilinogen 2.0 H Ur Leukocyte Esterase TRACE H - Diagnostic Test Radiology reviewed: Image reviewed, Reports reviewed - X-ray shows no infiltrates. Right shoulder x-ray shows no bony lesions. CT of the abdomen shows a stable hernia. Discharge - Discharge Clinical Impression: Right shoulder pain, Wheezing, Hernia Condition: Stable Disposition: HOME, SELF-CARE Additional Instructions: As we discussed, the x-rays of your shoulder looked okay. I want you to take it easy with your right shoulder for the next few days. You can try icing it. Continue with ibuprofen. Take the Percocet as needed for pain. For the hernia: I want you to call the surgical clinic and let them know you are in the emergency room and the ER doctor wanted you evaluated. I put the number on the chart. Take the albuterol inhaler as needed. Return to the emergency room for worsening pain or any concerns or getting worse. The pain medicine you're taking prescribed as a narcotic. There are several important things you should know about this medicine: 1. This medicine contains Tylenol: It is important that you do not take Tylenol (or acetaminophen) while on this medicine. Tylenol is metabolized by the liver and taking too much Tylenol (acetaminophen) can lay to liver damage and even liver failure. 2. Taking narcotics for too long can lead to physical and mental dependence. Take this medicine only if really needed and in the lowest quantity to achieve pain relief. 3. Do not drink alcohol while on this medicine. Alcohol interacts with narcotics and the combination can be dangerous. 4. Do not drive or operate machinery while on this medicine. 5. Narcotics do cause constipation, so drink plenty of fluids and daily stool softeners. Prescriptions: Oxycodone HCl/Acetaminophen [Percocet 5-325 mg Tablet] 1 - 2 tab PO ASDIR PRN #25 tablet PRN Reason: Forms: Return to Work Referrals: OLAF VASQUEZ MD [Primary Care Provider] - Follow up as needed CHACHA YUAN MD [ACTIVE STAFF] - Follow up tomorrow (This is the number of the surgical clinic affiliated with the hospital. Want you to call the clinic tomorrow and tell them you are in the ER for your hernia is seen as follow-up evaluation and possible repair)
[2019-01-01 02:24] VITALS: BP 147/83
== END 2019-01-01 02:24 | disposition home or self-care (01) ==
LOC: ER 17:39
DX: M25.511 Pain in right shoulder (principal); K43.9 Ventral hernia without obstruction or gangrene; J45.909 Unspecified asthma, uncomplicated; F17.210 Nicotine dependence, cigarettes, uncomplicated; I10 Essential (primary) hypertension; R06.02 Shortness of breath; Z88.1 Allergy status to other antibiotic agents; Z91.048 Other nonmedicinal substance allergy status; Z79.899 Other long term (current) drug therapy
CPT/HCPCS: 93005; 94640 ×2; 99284; 96361; 96374; 96375; 36415; 83605; 85025; 80053; 81001; 71046; 73030; 74177; 93010; J1200; S0119; J2765; J2405; J7030; J3490; J7620

== ENCOUNTER 2019-02-22 15:05 | Emergency (ER) | payer SELFPAY ==
[2019-02-22] MEDS ORDERED: METHYLPREDNISOLONE INJ 125 MG/2 ML SDV IV ONE (16:02)
[2019-02-22] MEDS ORDERED: CLINDAMYCIN 600 MG/D5W RTU 600 MG/50 ML RTUPB IV ONE (16:04)
--- NOTE | 2019-02-22 16:08 | ER Document Report ---
ED General - General Chief Complaint: Nausea/Vomiting/Diarrhea Stated Complaint: SORE THROAT/ABDOMINAL PAIN Time Seen by Provider: 02/22/19 15:48 Primary Care Provider: OLAF VASQUEZ MD [Primary Care Provider] - Follow up as needed Notes: Patient says that she woke up this morning and her throat was sore and she has a hoarse voice. She is able to swallow items, but it is painful to do so. She has not had any problems with her breathing. Has not had any recent head congestion or sinus congestion. Patient says she had a similar episode this a couple years ago and was diagnosed as an infection and treated with antibiotics. Patient says she is vomited about 4 times today and also had some diarrhea. Crampy abdominal pain. Some burning with urination. Denies any fever. Not diabetic. PMH: Hernia repair x3. Tubal ligation. . Cholecystectomy. Partial hysterectomy. TRAVEL OUTSIDE OF THE [place] IN LAST 30 DAYS: No - Related Data Allergies/Adverse Reactions: adhesive tape Allergy (Verified 02/22/19 15:07) cephalexin [From Keflex] Allergy (Verified 02/22/19 15:07) Past Medical History - Social History Smoking Status: Unknown if Ever Smoked Family History: Arthritis, Malignancy, CAD, CVA, DM, Hyperlipidemia, Hypertension, Reviewed & Not Pertinent, Thyroid Disfunction - Past Medical History Cardiac Medical History: Reports: Hx Hypertension Pulmonary Medical History: Reports: Hx Asthma, Hx Bronchitis, Hx Pneumonia Musculoskeletal Medical History: Reports Hx Musculoskeletal Trauma Psychiatric Medical History: Reports: Hx Depression Past Surgical History: Reports: Hx Section - 3, Hx Cholecystectomy, Hx Gynecologic Surgery - 3 , Hx Herniorrhaphy, Hx Hysterectomy, Hx Tubal Ligation, Other - Multiple abdominal wall hernia repair involving Pfannenstiel incision - Immunizations Immunizations up to date: Yes Hx Diphtheria, Pertussis, Tetanus Vaccination: - unsure of date Hx Pneumococcal Vaccination: 01/25/13 Review of Systems - Review of Systems Notes: REVIEW OF SYSTEMS: CONSTITUTIONAL : Denies fever. Complains of body aches. EENT: Denies eye, ear, nose or mouth pain or other symptoms. See HPI. CARDIOVASCULAR: Denies chest pain. RESPIRATORY: Denies cough, chest congestion, or shortness of breath. GASTROINTESTINAL: See HPI. GENITOURINARY: Denies difficulty or painful urinating, urinary frequency, blood in urine. MUSCULOSKELETAL: Denies back or neck pain. Denies joint pain or swelling. SKIN: Denies rash or skin lesions. NEUROLOGICAL: Denies LOC or altered mental status. Has some headache, like headache she has had before. Denies sensory loss or motor deficits. ALL OTHER SYSTEMS REVIEWED AND NEGATIVE. Physical Exam - Vital signs Vitals: Temp Pulse Resp BP Pulse Ox 98.6 F 84 18 155/84 H 97 02/22/19 15:10 02/22/19 15:10 02/22/19 15:10 02/22/19 15:10 02/22/19 15:10 Interpretation: Normal Notes: PHYSICAL EXAMINATION: GENERAL: Well-appearing, in no acute distress. HEAD: Atraumatic, normocephalic. EYES: Pupils equal round and reactive to light, extraocular movements intact. ENT: oropharynx has the uvula slightly swollen and edematous and the adjacent soft tissue is erythematous. However, no exudates are present. Moist mucous membranes. Voice is raspy and sounds hoarse, but it sounds like a voluntary hoarseness which the patient probably can control. NECK: Normal range of motion, supple. LUNGS: Breath sounds clear and equal bilaterally. HEART: Regular rate and rhythm without murmurs. ABDOMEN: Soft, nontender. No guarding or rebound. No masses. BACK: No tenderness throughout entire back. EXTREMITIES: Normal range of motion without pain. NEUROLOGICAL: Normal speech, normal gait. Normal sensory, motor, and reflex exams. Awake, alert, and oriented x3. Cranial nerves normal. PSYCH: Normal mood, normal affect. SKIN: Warm, dry, no rashes. Course - Re-evaluation Re-evalutation: 02/22/19 18:10 Patient's voice seemed to improve somewhat. She did not sound is hoarse. Says she still aches all over. CT of the soft tissue the neck was negative. Lab studies were all essentially negative as well. - Vital Signs Vital signs: Temp Pulse Resp BP Pulse Ox 98.6 F 80 16 164/85 H 100 02/22/19 15:10 02/22/19 18:27 02/22/19 18:27 02/22/19 18:27 02/22/19 18:27 - Laboratory Result Diagrams: 02/22/19 16:26 05/19/19 16:26 Laboratory results interpreted by me: 02/22/19 02/22/19 16:26 16:26 MCV 79 L MCH 26.8 L RDW 14.6 H Glucose 115 H - Diagnostic Test Radiology reviewed: Image reviewed, Reports reviewed - CT of the soft tissue of the neck without contrast is essentially normal. Discussed with radiologist and he finds no abnormalities. Discharge - Discharge Clinical Impression: Pharyngitis Condition: Stable Disposition: HOME, SELF-CARE Additional Instructions: SORE THROAT: Sore throats may be caused by viruses, bacteria, or fungi. Most are due to a virus, and must get better on their own. Bacterial sore throats, particularly those due to "strep," need treatment with antibiotics. If an antibiotic is prescribed, be sure to take the medication for a full 10 days. Failure to take the antibiotic can result in complications such as rheumatic fever. Sometimes, an injection of antibiotics is given instead of pills or liquid. This single "shot" is equal in effectiveness to the oral medication. To relieve symptoms, take acetaminophen for pain. Sip clear liquids frequently, or eat popsicles or ice chips. Anesthetic sprays or lozenges may help. Make sure the air in the room is not too dry. Avoid using decongestants or antihistamines. Call the doctor if there is no improvement in two days, or if you have difficulty breathing, increasing throat pain, high fever, rash, or frequent vomiting. Clindamycin You have been given a prescription for the antibiotic clindamycin. It is often prescribed for infections in the mouth, such as dental infections or abscesses, and for skin infections due to MRSA. It's important that you take all the medication, unless instructed otherwise by your physician. Failure to complete the entire course can result in relapse of your condition. Common side effects of antibiotics include nausea, intestinal cramping, or diarrhea. Women may develop vaginal yeast infections, and babies can get yeast (thrush) in the mouth following the use of antibiotics. Contact your physician if you develop significant side effects from this medication. Allergy to this antibiotic can result in hives, wheezing, faintness, or itching. If symptoms of allergy occur, stop the medication and call the doctor. ORAL NARCOTIC MEDICATION: You have been given a prescription for pain control. This medication is a narcotic. It's best taken with food, as nausea can result if taken on an empty stomach. Don't operate machinery or drive within six hours of taking this medication. Do not combine this medicine with alcohol, or with any medication which can cause sedation (such as cold tablets or sleeping pills) unless you get permission from the physician. Narcotics tend to cause constipation. If possible, drink plenty of fluids and eat a diet high in fiber and fruits. Please be aware that prescription narcotics also have the potential for abuse. People become addicted to these medications because of the general sense of wellbeing that they induce. This feeling along with a significant reduction in tension, anxiety, and aggression provides a stimulating seductive quality to these drugs. Once your pain is under control, we encourage you to discard your unused narcotics. STEROID MEDICATION: You have been given an injection of a medicine of the cortisone/steroid class. This medication is used to control inflammation or allergy. It is usually only given for a short period of time, until the acute process subsides. There are usually no side effects from short-term use of cortisone-like medications. Some persons feel an increased sense of well-being and are not sleepy at bedtime. Long-term use of cortisone medications is best avoided, u nless required for a severe condition. If your condition does not remit, or relapses after the course of corticosteroid medication, you should consult your physician. FOLLOW-UP CARE: If you have been referred to a physician for follow-up care, call the physicians office for an appointment as you were instructed or within the next two days. If you experience worsening or a significant change in your symptoms, notify the physician immediately or return to the Emergency Department at any time for re-evaluation. Prescriptions: Oxycodone HCl/Acetaminophen [Percocet 5-325 mg Tablet] 1 - 2 tab PO Q4HP PRN #10 tablet PRN Reason: RX: Clindamycin HCl [Cleocin 150 mg Capsule] 150 mg PO QID #25 capsule Forms: Return to Work Referrals: OLAF VASQUEZ MD [Primary Care Provider] - Follow up as needed
[2019-02-22 16:39] LABS: ABSOLUTE EOSINOPHILS # (AUTO) 0.4 10^3/uL (0.0-0.6); ABSOLUTE LYMPHOCYTES (AUTO) 1.8 10^3/uL (0.5-4.7); ABSOLUTE MONOCYTES (AUTO) 0.4 10^3/uL (0.1-1.4); ABSOLUTE NEUT (AUTO) 5.2 10^3/uL (1.7-8.2); BASOPHILS % (AUTO) 0.5 % (0-2); EOSINOPHILS % (AUTO) 4.5 % (0-6); HEMATOCRIT 39.6 % (36.0-47.0); HEMOGLOBIN 13.4 g/dL (12.0-15.5); LYMPHOCYTES % (AUTO) 23.1 % (13-45); MEAN CORPUSCULAR HEMOGLOBIN 26.8 pg (27.0-33.4); MEAN CORPUSCULAR HGB CONC 33.9 g/dL (32.0-36.0); MEAN CORPUSCULAR VOLUME 79 fl (80-97); MONOCYTES % (AUTO) 4.7 % (3-13); PLATELET COUNT 245 10^3/uL (150-450); RED BLOOD COUNT 5.01 10^6/uL (3.72-5.28); RED CELL DISTRIBUTION WIDTH 14.6 % (11.5-14.0); SEGMENTED NEUTROPHILS % (AUTO) 67.2 % (42-78); TOTAL CELLS COUNTED % (AUTO) 100 %; WHITE BLOOD COUNT 7.8 10^3/uL (4.0-10.5)
[2019-02-22 17:01] LABS: ALANINE AMINOTRANSFERASE 36 U/L (9-52); ALBUMIN 3.7 g/dL (3.5-5.0); ALKALINE PHOSPHATASE 61 U/L (38-126); ANION GAP 10 (5-19); ASPARTATE AMINO TRANSFERASE 25 U/L (14-36); BILIRUBIN,DIRECT 0.2 mg/dL (0.0-0.4); BILIRUBIN,TOTAL 0.4 mg/dL (0.2-1.3); BLOOD UREA NITROGEN 12 mg/dL (7-20); CALCIUM 9.4 mg/dL (8.4-10.2); CARBON DIOXIDE 25 mmol/L (22-30); CHLORIDE 107 mmol/L (98-107); GLUCOSE 115 mg/dL (75-110); POTASSIUM 3.8 mmol/L (3.6-5.0); SODIUM 141.9 mmol/L (137-145); TOTAL PROTEIN 6.7 g/dL (6.3-8.2)
[2019-02-22] MEDS ORDERED: OXYCODONE-ACETAMINOPHEN 5-325 MG TABLET PO ONE (17:21)
--- NOTE | 2019-02-22 18:10 | RADIOLOGY REPORT (SQ) ---
EXAM DESCRIPTION: CT SOFT TISSUE NECK WITHOUT COMPLETED DATE/TIME: 02/22/2019 5:55 pm REASON FOR STUDY: hoarse raspy voice and sore throat--NO Contrast COMPARISON: None. TECHNIQUE: Noncontrast scanning from skull base through lung apices with review of bone, soft tissue and lung windows. Reconstructed coronal and sagittal MPR images reviewed. All images stored on PAC S. All CT scanners at this facility use dose modulation, iterative reconstruction, and/or weight based d osing when appropriate to reduce radiation dose to as low as reasonably achievable (ALARA). [facility]: Dose Right [facility]: CareDose [facility]: Dose Right [facility]: Teradose 4D [facility]: Wedia RADIATION DOSE: CT Rad equipment meets quality standard of care and radiation dose reduction techniq ues were employed. CTDIvol: 16.9 mGy. DLP: 469 mGy-cm. mGy. LIMITATIONS: None. FINDINGS: SKULL BASE: Intact. MAJOR SALIVARY GLANDS: No solid or cystic masses. No inflammatory changes. LYMPHADENOPATHY: No adenopathy. MUCOSAL MASSES OR ASYMMETRY: No mucosal masses or asymmetry. LARYNX/CORDS: No abnormal findings. LUNG APICES: Clear. BONES: Intact. THYROID: Normal size. No masses. PARANASAL SINUSES: Clear. OTHER: No other significant finding. IMPRESSION: NO SIGNIFICANT FINDING IN THE SOFT TISSUES OF THE NECK. TECHNICAL DOCUMENTATION: JOB ID: [id number] [id number] Quality ID # [id number]: Final reports with documentation of one or more dose reduction techniques (e.g., Au tomated exposure control, adjustment of the mA and/or kV according to patient size, use of iterative reconstruction technique) 2010 [employer]- All Rights Reserved Reading location - IP/workstation name: [employer]
[2019-02-22 18:28] VITALS: BP 164/85
== END 2019-02-22 18:28 | disposition home or self-care (01) ==
LOC: ER 15:05
DX: J02.9 Acute pharyngitis, unspecified (principal); R19.7 Diarrhea, unspecified; R10.9 Unspecified abdominal pain; R30.0 Dysuria; R51 Headache; I10 Essential (primary) hypertension; J45.909 Unspecified asthma, uncomplicated; Z98.51 Tubal ligation status; Z90.49 Acquired absence of other specified parts of digestive tract; Z90.711 Acquired absence of uterus with remaining cervical stump; Z91.048 Other nonmedicinal substance allergy status; Z88.1 Allergy status to other antibiotic agents
CPT/HCPCS: 99284; 96375; 96365; 96366; 36415; 87070; 87880; 85025; 80053; 70490; J2930

== ENCOUNTER 2019-05-04 18:20 | Observation (INO) | payer SELFPAY ==
[2019-05-04] MEDS ORDERED: MORPHINE SULFATE 10 MG/ML INJ IV ONE ×2 (19:24→21:25)
--- NOTE | 2019-05-04 19:24 | ER Document Report ---
ED Medical Screen (RME) - General Chief Complaint: Lower Abdominal Pain Stated Complaint: VAGINAL DISCOMFORT Time Seen by Provider: 05/04/19 19:11 Primary Care Provider: OLAF VASQUEZ MD [Primary Care Provider] - Follow up as needed TRAVEL OUTSIDE OF THE [place] IN LAST 30 DAYS: No - HPI Notes: 05/04/19 19:19 Patient is a 38-year-old female with a history of hypertension, morbid obesity, prior cholecystectomy, , has a chronic ventral hernia above the pubic symphysis who presents c/o hernia pain and redness x1 day. Pt states that the pain has been severe. She has not been following up with general surgery due to no insurance. She has been here in the past for hernia issues. Denies BARCENAS, fever, neck pain, URI, CP, SOB, dysuria, back pain, or rash. I have treated and performed a rapid initial assessment of this patient. A comprehensive ED assessment and evaluation of the patient, analysis of test results and completion of medical decision making process will be conducted by additional ED providers. We will defer imaging to main side provider where they can adequately assess the hernia and need for imaging. PHYSICAL EXAMINATION: GENERAL: Well-appearing, well-nourished and in no acute distress. A&Ox4. Answers questions appropriately. LUNGS: Breath sounds clear to auscultation bilaterally and equal. No wheezes rales or rhonchi. HEART: Regular rate and rhythm without murmurs, rubs, gallops. ABDOMEN: + large ventral hernia noted with mild erythema. + mild tenderness to palp but cannot adequately assess in a chair in triage. Will need gown and bed to further evaluate. Accompanied by female nurse Gina. - Related Data Allergies/Adverse Reactions: adhesive tape Allergy (Verified 02/22/19 15:07) cephalexin [From Keflex] Allergy (Verified 02/22/19 15:07) Past Medical History - Past Medical History Cardiac Medical History: Reports: Hx Hypertension Pulmonary Medical History: Reports: Hx Asthma, Hx Bronchitis, Hx Pneumonia Renal/ Medical History: Denies: Hx Peritoneal Dialysis Musculoskeltal Medical History: Reports Hx Musculoskeletal Trauma Psychiatric Medical History: Reports: Hx Depression Past Surgical History: Reports: Hx Section - 3, Hx Cholecystectomy, Hx Gynecologic Surgery - 3 , Hx Herniorrhaphy, Hx Hysterectomy, Hx Tubal Ligation, Other - Multiple abdominal wall hernia repair involving Pfannenstiel incision - Immunizations Immunizations up to date: Yes Hx Diphtheria, Pertussis, Tetanus Vaccination: - unsure of date Physical Exam - Vital signs Vitals: Temp Pulse Resp BP Pulse Ox 97.8 F 78 16 187/98 H 98 05/04/19 18:36 05/04/19 18:36 05/04/19 18:36 05/04/19 18:36 05/04/19 18:36 Course - Vital Signs Vital signs: Temp Pulse Resp BP Pulse Ox 97.8 F 78 16 187/98 H 98 05/04/19 18:36 05/04/19 18:36 05/04/19 18:36 05/04/19 18:36 05/04/19 18:36 Doctor's Discharge - Discharge Referrals: OLAF VASQUEZ MD [Primary Care Provider] - Follow up as needed
[2019-05-04 20:24] LABS: ABSOLUTE EOSINOPHILS # (AUTO) 0.3 10^3/uL (0.0-0.6); ABSOLUTE MONOCYTES (AUTO) 0.5 10^3/uL (0.1-1.4); ABSOLUTE NEUT (AUTO) 5.2 10^3/uL (1.7-8.2); BASOPHILS % (AUTO) 0.3 % (0-2); EOSINOPHILS % (AUTO) 3.9 % (0-6); HEMATOCRIT 40.4 % (36.0-47.0); HEMOGLOBIN 13.6 g/dL (12.0-15.5); LYMPHOCYTES % (AUTO) 24.8 % (13-45); MEAN CORPUSCULAR HEMOGLOBIN 26.4 pg (27.0-33.4); MEAN CORPUSCULAR HGB CONC 33.7 g/dL (32.0-36.0); MEAN CORPUSCULAR VOLUME 78 fl (80-97); MONOCYTES % (AUTO) 6.6 % (3-13); PLATELET COUNT 253 10^3/uL (150-450); RED BLOOD COUNT 5.15 10^6/uL (3.72-5.28); RED CELL DISTRIBUTION WIDTH 15.7 % (11.5-14.0); SEGMENTED NEUTROPHILS % (AUTO) 64.4 % (42-78); TOTAL CELLS COUNTED % (AUTO) 100 %; WHITE BLOOD COUNT 8.1 10^3/uL (4.0-10.5)
--- NOTE | 2019-05-04 20:42 | ER Document Report ---
HPI <JOSE A RAMIREZ Chip - Last Filed: 05/04/19 21:41> - HPI Patient complains to provider of: abdominal pain, ventral hernia Onset: Yesterday Onset/Duration: Sudden, Persistent, Waxing and waning Quality of pain: Achy, Sharp, Stabbing Severity: Moderate Pain Level: 4 Context: 38 Yr old female patient, with the listed pmh, here for suprapubic abdominal pain/swelling/erythema over the area that she has a known chronic ventral/incisional hernia at for the last years. She states over the last 2 days however the hernia has become larger, red, and more painful. She denies any injury or trauma. She states she had some nausea, few episodes of nonbloody nonbilious vomiting, slightly decreased bowel movements and flatus also over the last few days. no fall or trauma. No abdominal surgeries other than ventral/incisional hernia repairs x2 with mesh and then mesh removal secondary to mesh infection in 2016 and 2017, partial hysterectomy, tubal ligation, and cholecystectomy.. No history of ovarian cysts, fibroids, endometriosis, or renal stones. No UTI symptoms. No URI symptoms. No recent antibiotics or steroids. No history of diabetes. No vaginal discharge/complaints/lesions or concerns for STDs and does not want a pelvic exam. No ripping or tearing sensation. otc meds not controlling her pain. last po intake was 3:30pm yesterday. No excessive NSAID use, Tylenol use, or EtOH. No prior history of pancreatitis, ulcers, GI bleed, GERD, IBS, Crohn's, or UC. no change in color or caliber or stool. no blood thinners. no other associated sx. Similar symptoms previously: Yes Recently seen / treated by doctor: No - ROS Systems Reviewed and Negative: Yes All other systems reviewed and negative - to include 10 unless mentioned in the hpi - REPRODUCTIVE Reproductive: DENIES: : <LATANYA SANDOVAL - Last Filed: 05/05/19 03:24> - HPI Time Seen by Provider: 05/04/19 19:11 Past Medical History - General Information source: Patient, Relative - Social History Smoking Status: Current Every Day Smoker Chew tobacco use (# tins/day): No Frequency of alcohol use: Occasional Drug Abuse: None Lives with: Spouse/Significant other Family History: Arthritis, Malignancy, CAD, CVA, DM, Hyperlipidemia, Hypertension, Reviewed & Not Pertinent, Thyroid Disfunction Patient has suicidal ideation: No Patient has homicidal ideation: No - Past Medical History Cardiac Medical History: Reports: Hx Hypertension - not compliant with meds secondary to monitary costs Pulmonary Medical History: Reports: Hx Asthma, Hx Bronchitis, Hx COPD - not on home O2 Endocrine Medical History: Denies: Hx Diabetes Mellitus Type 1, Hx Diabetes Mellitus Type 2, Hx Hyperthyroidism, Hx Hypothyroidism Renal/ Medical History: Denies: Hx Kidney Stones, Hx Peritoneal Dialysis Musculoskeletal Medical History: Reports Hx Musculoskeletal Trauma Psychiatric Medical History: Reports: Hx Depression Infectious Medical History: Reports: None Past Surgical History: Reports: Hx Section - 3, Hx Cholecystectomy, Hx Gynecologic Surgery - 3 , Hx Herniorrhaphy, Hx Hysterectomy, Hx Tubal Ligation, Other - Multiple abdominal wall hernia repair involving Pfannenstiel incision - Immunizations Immunizations up to date: Yes Hx Diphtheria, Pertussis, Tetanus Vaccination: - unsure of date Hx Pneumococcal Vaccination: 01/25/13 <LATANYA SANDOVAL - Last Filed: 05/05/19 03:24> Vertical Provider Document - CONSTITUTIONAL Notes: >>>> PHYSICAL_EXAM: GENERAL_APPEARANCE: well_nourished, alert, cooperative, no_acute_distress, mild_obvious_discomfort. Pleasant, morbidly obese middle aged white female, sm iling, speaking in full sentences, in no sign of resp distress, easily sitting up but appears to be uncomfortable with pain. VITALS: reviewed, see vital signs table. HEAD: normocephalic, atraumatic. no chavez signs. no raccoon eyes. EYES: PERRL, EOMI, (-)scleral icterus. NOSE: no_nasal_discharge. MOUTH: (-)decreased moisture. THROAT: no_tonsilar_inflammation/hypertrophy/exudate NECK: supple, no_neck_tenderness, full rom. full strength. no meningeal signs. BACK: no midline_back_tenderness. no step offs or deformities CHEST_WALL: no_chest_tenderness. LUNGS: no_wheezing, (-)accessory muscle use, good air exchange bilateral. HEART: normal_rate, normal_rhythm, ABDOMEN: normal_BS, soft, abdomen-diffuse, obese abd exam somewhat limited secondary to pts body habitus, there is a large approx 10cm ventral suprapubic hernia that is erythematous and ttp and somewhat indurated on the right lateral portion of the hernia, (-)guarding, (-)rebound, no distension or peritoneal signs. neg murphys. neg mcburneys. no cva tenderness. neg heel strike. neg obturator. neg psoas. neg rovsign. PELVIC: deferred by pt RECTAL: deferred EXTREMITIES: strength 5/5 in all_extremities, good pulses in all_extremities, no_edema, no_swelling\tenderness. full rom. normal gait. 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 brisk cap refill. SKIN: warm, dry, good_color, no_rash. no grossly visible overlying skin changes to suggest trauma NEURO: motor_intact, sensory_intact. cranial nerves 2-12 intact, cerebellar fxn intact MENTAL_STATUS: normal_affect, speech_clear, oriented_X_3, responds_appropriat belkis to questions. - INFECTION CONTROL TRAVEL OUTSIDE OF THE [place] IN LAST 30 DAYS: No <LATANYA SANDOVAL - Last Filed: 05/05/19 03:24> Course - Re-evaluation Re-evalutation: 05/04/19 21:41 Patient seen and evaluated. She has a large suprapubic hernia which is likely incisional. The hernia is erythematous and edematous and very tender to palpation. I am not able to reduce the hernia at all. This is concerning for possible incarcerated or strangulated hernia. Patient's lab work is unremarkable. Have advised contacting surgery now for evaluation in the emergency room. Patient is getting CT scan of the abdomen and pelvis as well. - Vital Signs Vital signs: Temp Pulse Resp BP Pulse Ox 97.8 F 78 16 187/98 H 98 05/04/19 18:36 05/04/19 18:36 05/04/19 18:36 05/04/19 18:36 05/04/19 18:36 - Laboratory Result Diagrams: 05/04/19 19:50 05/04/19 19:50 Laboratory results interpreted by me: 05/04/19 05/04/19 18:30 19:50 MCV 78 L MCH 26.4 L RDW 15.7 H Urine Blood SMALL H Urine Urobilinogen 2.0 H <JOSE A RAMIREZ - Last Filed: 05/04/19 21:41> - Re-evaluation Re-evalutation: Pt here for a very large suprapubic likely incisional hernia that is concerning for incarceration patient states the area has become more hard, red, swollen and painful over the last 2 days. She has had some nausea/vomiting and decreasing bowel movements and flatus. She has had multiple abdominal surgeries. The hernia is not reducible. She was pain controlled here. I did contact the on- call surgeon, Dr. Sue, at 9:50pm, who did come down to the ER to evaluate patient and he requested a CT abdomen pelvis with p.o. and IV contrast. once this returned i did receive a phone call from the radiologist around 2:25am, Dr. Lacy, who advised me that the patient did likely have a incarcerated hernia given the changes in her CT however ct was otherwise neg per rad and reviewed by myself. I did then reconsult Dr. Sue at about 2:30a along with Dr Saida Ramirez who also spoke with Dr. Sue who then agreed to come down and re-evaluate the patient again. dr sue did then agree to obs the pt until 7a when his partner dr Esquivel was coming in to evaluate the pt. care transferred to surgery in stable condition. please refer to their note for further details of the visit. On reexam, pt improved with tx listed. remained stable. nontoxic. pain contro lled. pt kept npo. last po intake was 3:30p yesterday. case discussed with ER Attending, Dr. Saida Ramirez, who directed and agrees with plan of care Documentation achieved through voice recording which my lead to some occasional accidental typographical errors. Extensive efforts have been made to proof read documentation to make sure these are the least as possible. 05/05/19 02:28 Category Date Time Status Lock [Saline Lock (ED)] NOW Care 05/04/19 19:24 Completed NPO (ED) NOW Care 05/04/19 22:15 Active Vital Signs (ED) NOW Care 05/04/19 20:[address] ABD/PELVIS WITH IV & ORAL [CT] Stat Exams 05/05/19 Completed CBC WITH DIFF [HEME] Stat Lab 05/04/19 19:50 Completed COMPREHENSIVE METABOLIC PANEL [CHEM] Stat Lab 05/04/19 19:50 Completed URINALYSIS [URIN] Stat Lab 05/04/19 18:30 Completed Morphine Sulfate [Morphine 10 mg/ml Inj] Med 05/04/19 19:24 Discontinued 4 mg IV NOW ONE Morphine Sulfate [Morphine 10 mg/ml Inj] Med 05/04/19 21:25 Discontinued 4 mg IV NOW ONE Normal Saline [NaCl 0.9% 500 ml IV Soln] 500 ml Med 05/04/19 21:26 Discontinued IV NOW Ondansetron HCl/Pf [Zofran Inj/Pf 4 mg/2 ml Sdv] Med 05/04/19 21:25 Discontinued 4 mg IV NOW ONE 05/05/19 03:22 - Vital Signs Vital signs: Temp Pulse Resp BP Pulse Ox 97.8 F 78 16 187/98 H 98 05/04/19 18:36 05/04/19 18:36 05/04/19 18:36 05/04/19 18:36 05/04/19 18:36 05/05/19 02:38 Temp Pulse Resp BP Pulse Ox 05/04/19 18:36 97.8 F 78 16 187/98 H 98 - Laboratory Result Diagrams: 05/04/19 19:50 05/04/19 19:50 Laboratory results interpreted by me: 05/04/19 19:50 MCV 78 L MCH 26.4 L RDW 15.7 H Labs- Entire Visit 05/04/19 05/04/19 05/04/19 18:30 19:50 19:50 WBC 8.1 RBC 5.15 Hgb 13.6 Hct 40.4 MCV 78 L MCH 26.4 L MCHC 33.7 RDW 15.7 H Plt Count 253 Seg Neutrophils % 64.4 Lymphocytes % 24.8 Monocytes % 6.6 Eosinophils % 3.9 Basophils % 0.3 Absolute Neutrophils 5.2 Absolute Lymphocytes 2.0 Absolute Monocytes 0.5 Absolute Eosinophils 0.3 Absolute Basophils 0.0 Sodium 139.7 Potassium 3.8 Chloride 106 Carbon Dioxide 27 Anion Gap 7 BUN 12 Creatinine 0.69 Est GFR ( Amer) > 60 Est GFR (Non-Af Amer) > 60 Glucose 78 Calcium 9.4 Total Bilirubin 0.5 Direct Bilirubin 0.3 Neonat Total Bilirubin Not Reportable Neonat Direct Bilirubin Not Reportable Neonat Indirect Bili Not Reportable AST 29 ALT 33 Alkaline Phosphatase 78 Total Protein 6.9 Albumin 4.0 Urine Color YELLOW Urine Appearance TURBID Urine pH 5.0 Ur Specific [place] 1.029 Urine Protein NEGATIVE Urine Glucose (UA) NEGATIVE Urine Ketones NEGATIVE Urine Blood SMALL H Urine Nitrite NEGATIVE Urine Bilirubin NEGATIVE Urine Urobilinogen 2.0 H Ur Leukocyte Esterase NEGATIVE Urine RBC (Auto) 6 Urine Bacteria (Auto) 2+ Squamous Epi Cells Auto 6 Amorphous Sediment Auto TRACE Urine Mucus (Auto) FEW Urine Ascorbic Acid NEGATIVE - Diagnostic Test Radiology reviewed: Image reviewed, Reports reviewed Radiology results interpreted by me: 05/05/19 02:38 Abdomen/Pelvis CT 05/05/19 00:00 IMPRESSION: Ventral hernia containing small bowel, possibly incarcerated. TECHNICAL DOCUMENTATION: Quality ID # 436: Final reports with documentation of one or more dose reduction techniques (e.g., Automated exposure control, adjustment of the mA and/or kV according to patient size, use of iterative reconstruction technique) copyright 2011 [employer]- All Rights Reserved <LATANYA SANDOVAL - Last Filed: 05/05/19 03:24> Discharge <JOSE A RAMIREZ - Last Filed: 05/04/19 21:41> - Discharge Admitting Provider: Surgicalist - Dr. Sue, who came down to the ED and evaluated the pt and agreed to Obs the pt until his partner can see him in the morning at 7am when he arrives. Unit Admitted: Surgical Floor <LATANYA SANDOVAL - Last Filed: 05/05/19 03:24> - Discharge Clinical Impression: Incarcerated hernia, Pelvic pain, Hypertension, uncontrolled Vomiting Qualifiers: Vomiting type: unspecified Vomiting Intractability: non-intractable Nausea presence: with nausea Qualified Code(s): R11.2 - Nausea with vomiting, unspecified Condition: Fair Disposition: ADMITTED OBSERVATION Referrals: OLAF VASQUEZ MD [Primary Care Provider] - Follow up as needed
[2019-05-04 20:44] LABS: ALANINE AMINOTRANSFERASE 33 U/L (9-52); ALKALINE PHOSPHATASE 78 U/L (38-126); ANION GAP 7 (5-19); ASPARTATE AMINO TRANSFERASE 29 U/L (14-36); BILIRUBIN,DIRECT 0.3 mg/dL (0.0-0.4); BILIRUBIN,TOTAL 0.5 mg/dL (0.2-1.3); BLOOD UREA NITROGEN 12 mg/dL (7-20); CALCIUM 9.4 mg/dL (8.4-10.2); CARBON DIOXIDE 27 mmol/L (22-30); CHLORIDE 106 mmol/L (98-107); GLUCOSE 78 mg/dL (75-110); POTASSIUM 3.8 mmol/L (3.6-5.0); TOTAL PROTEIN 6.9 g/dL (6.3-8.2)
[2019-05-04 20:49] LABS: AMORPHOUS SEDIMENT,URINE TRACE /HPF; APPEARANCE,URINE TURBID; BILIRUBIN,URINE NEGATIVE (NEGATIVE); COLOR,URINE YELLOW; GLUCOSE, URINE NEGATIVE (NEGATIVE); KETONES,URINE NEGATIVE (NEGATIVE); LEUKOCYTE ESTERASE,URINE NEGATIVE (NEGATIVE); NITRITE,URINE NEGATIVE (NEGATIVE); PROTEIN,URINE NEGATIVE (NEGATIVE); URINE SPECIFIC GRAVITY 1.029
[2019-05-04] MEDS ORDERED: ONDANSETRON HCL INJ/PF 4 MG/2 ML SDV IV ONE (21:25)
[2019-05-04] MEDS ORDERED: NORMAL SALINE 500 ML IV ONE (21:26)
--- NOTE | 2019-05-05 02:16 | RADIOLOGY REPORT (SQ) ---
EXAM DESCRIPTION: CT ABDOMEN PELVIS WITH IV CONTRAST COMPLETED DATE/TME: 05/05/2019 00:00 CLINICAL HISTORY: 38 years, Female, concern for suprapubic incarcerated ventral hernia COMPARISON: CT abdomen pelvis 01/01/2019 TECHNIQUE: Axial images of the abdomen and pelvis were performed utilizing intravenous contrast, with sagittal and coronal reformatted images. Images stored on PACS. All CT scanners at this facility use dose modulation, iterative reconstruction, and/or weight based dosing when appropriate to reduce radiation dose to as low as reasonably achievable (ALARA). [facility]: Dose Right [facility]: CareDose [facility]: Dose Right [facility]: Teradose 4D [facility]: [email or web address] LIMITATIONS: None. FINDINGS: There is a lower abdominal ventral hernia containing several loops of small bowel. This hernia was present on the prior scan. The current study shows mild inflammation/edema involving the mesenteric fat on the right side of the hernia. There is also a small amount of fluid within the hernia. These are new findings, as compared with the prior CT scan. Hernia incarceration must be considered. There is no significant radiographic abnormality of the liver, spleen, pancreas, adrenal glands or kidneys. No free air. IMPRESSION: Ventral hernia containing small bowel, possibly incarcerated. TECHNICAL DOCUMENTATION: Quality ID # 436: Final reports with documentation of one or more dose reduction techniques (e.g., Automated exposure control, adjustment of the mA and/or kV according to patient size, use of iterative reconstruction technique) copyright 2010 [employer]- All Rights Reserved
[2019-05-05] MEDS ORDERED: ONDANSETRON HCL INJ/PF 4 MG/2 ML SDV IV PRN (03:45)
--- NOTE | 2019-05-05 03:45 | PDOC H&P ---
History of Present Illness Admission Date/PCP: OLAF VASQUEZ MD Patient complains of: pains along pelvic hernia History of Present Illness: VERONICA HERCULES is a 38 year old female with known ventral/pelvic hernia c/o pains along hernia site past 2 days associated with nausea.History of 3 CS and hysterectomy in 2013 at [facility]. A year after hysterectomy developed an incisional hernia and had initial repair with mesh in [place] in 2015. This apparently got infected and mesh removed about 6 months later. Was seen here at our ER in 12/[address] scan which showed stable ventral hernia. Ct scan today showed essentially same findings as in December 2018 except for subtle inflammation along mesentery and small amount of fluid in the hernia sac. Denies any vomiting until she took the po contrast this am where she vomitted once. Denies fever nor chills. Last BM 2 days ago but passing flatus until last night. Past Medical History Cardiac Medical History: Reports: Hypertension - not compliant with meds secondary to monitary costs Pulmonary Medical History: Reports: Asthma, Bronchitis, Chronic Obstructive Pulmonary Disease (COPD) - not on home O2, Pneumonia Endocrine Medical History: Denies: Diabetes Mellitus Type 1, Diabetes Mellitus Type 2, Hyperthyroidism, Hypothyroidism Psychiatric Medical History: Reports: Depression Infectious Medical History: Reports: None Past Surgical History Past Surgical History: Reports: Section - 3, Cholecystectomy, Herni orrhaphy, Hysterectomy, Tubal Ligation, Other - Multiple abdominal wall hernia repair involving Pfannenstiel incision Social History Lives with: Spouse/Significant other Smoking Status: Current Every Day Smoker Frequency of Alcohol Use: Occasional Hx Recreational Drug Use: No Hx Prescription Drug Abuse: No Family History Family History: Arthritis, Malignancy, CAD, CVA, DM, Hyperlipidemia, Hypertension, Reviewed & Not Pertinent, Thyroid Disfunction Parental Family History Reviewed: Yes Children Family History Reviewed: No Sibling(s) Family History Reviewed.: No Medication/Allergy Home Medications: Docusate Sodium [Colace 100 mg Capsule] 100 mg PO BID #60 capsule 05/30/18 Hydrocodone/Acetaminophen [Hydrocodon-Acetaminophen 5-325] 1 each PO Q6 #14 tablet 05/30/18 Ibuprofen 200 mg PO PRN PRN 08/28/18 Albuterol Sulfate [Proair HFA Inhalation Aerosol 8.5 gm MDI] 2 puff IH Q4H PRN #1 mdi 10/28/18 Albuterol Sulfate [Ventolin 0.083% Neb 2.5 mg/3 mL Ampul] 1 vial NEB Q4 #60 vial 10/28/18 Amoxicillin/Potassium Clav [Augmentin Xr 1,000-62.5 Tab] 2 each PO BID 7 Days tab.er.12h 10/28/18 Benzonatate [Tessalon Perles 100 mg Capsule] 100 mg PO Q8HP PRN #40 capsule 10/28/18 Nebulizer [Nebulizer Machine] 1 each MC ASDIR PRN #1 kit 10/28/18 Prednisone [Deltasone 20 mg Tablet] 3 tab PO DAILY 5 Days tablet 10/28/18 Docusate Sodium [Colace 100 mg Capsule] 100 mg PO ASDIR PRN #30 capsule 11/05/18 Morphine Sulfate [Morphine Ir 15 Mg Tablet] 15 mg PO TID PRN #10 tablet 11/05/18 Promethazine HCl [Phenergan 25 mg Tablet] 25 mg PO Q6H PRN #20 tablet 11/05/18 Oxycodone HCl/Acetaminophen [Percocet 5-325 mg Tablet] 1 - 2 tab PO ASDIR PRN #25 tablet 01/01/19 Clindamycin HCl [Cleocin 150 mg Capsule] 150 mg PO QID #25 capsule 02/22/19 Oxycodone HCl/Acetaminophen [Percocet 5-325 mg Tablet] 1 - 2 tab PO Q4HP PRN #10 tablet 02/22/19 Allergies/Adverse Reactions: adhesive tape Allergy (Verified 02/22/19 15:07) cephalexin [From Keflex] Allergy (Verified 02/22/19 15:07) Review of Systems Constitutional: PRESENT: as per HPI Gastrointestinal: PRESENT: abdominal pain - along hernia site Physical Exam Vital Signs: Temp Pulse Resp BP Pulse Ox 97.8 F 78 16 187/98 H 98 05/04/19 18:36 05/04/19 18:36 05/04/19 18:36 05/04/19 18:36 05/04/19 18:36 Intake & Output 05/03/19 05/04/19 05/05/19 06:59 06:59 06:59 Intake Total 500 Balance 500 Weight 115.2 kg General appearance: PRESENT: mild distress Head exam: PRESENT: atraumatic Eye exam: PRESENT: conjunctiva pink Mouth exam: PRESENT: moist Neck exam: PRESENT: full ROM Respiratory exam: PRESENT: clear to auscultation anny Cardiovascular exam: PRESENT: RRR Pulses: PRESENT: normal radial pulses GI/Abdominal exam: PRESENT: soft, tenderness - along ventral hernia that is chronically incarcerated Rectal exam: PRESENT: deferred Extremities exam: PRESENT: full ROM Neurological exam: PRESENT: alert, oriented to person, oriented to place, oriented to time, oriented to situation Psychiatric exam: PRESENT: appropriate affect Skin exam: PRESENT: erythema, warm - on skin around hernia Results Laboratory Results: 05/04/19 19:50 05/04/19 19:50 05/04/19 05/04/19 05/04/19 18:30 19:50 19:50 WBC 8.1 RBC 5.15 Hgb 13.6 Hct 40.4 MCV 78 L MCH 26.4 L MCHC 33.7 RDW 15.7 H Plt Count 253 Seg Neutrophils % 64.4 Lymphocytes % 24.8 Monocytes % 6.6 Eosinophils % 3.9 Basophils % 0.3 Absolute Neutrophils 5.2 Absolute Lymphocytes 2.0 Absolute Monocytes 0.5 Absolute Eosinophils 0.3 Absolute Basophils 0.0 Sodium 139.7 Potassium 3.8 Chloride 106 Carbon Dioxide 27 Anion Gap 7 BUN 12 Creatinine 0.69 Est GFR ( Amer) > 60 Est GFR (Non-Af Amer) > 60 Glucose 78 Calcium 9.4 Total Bilirubin 0.5 AST 29 ALT 33 Alkaline Phosphatase 78 Total Protein 6.9 Albumin 4.0 Urine Color YELLOW Urine Appearance TURBID Urine pH 5.0 Ur Specific [place] 1.029 Urine Protein NEGATIVE Urine Glucose (UA) NEGATIVE Urine Ketones NEGATIVE Urine Blood SMALL H Urine Nitrite NEGATIVE Ur Leukocyte Esterase NEGATIVE Urine RBC (Auto) 6 Impressions: Abdomen/Pelvis CT 05/05/19 00:00 IMPRESSION: Ventral hernia containing small bowel, possibly incarcerated. TECHNICAL DOCUMENTATION: Quality ID # 436: Final reports with documentation of one or more dose reduction techniques (e.g., Automated exposure control, adjustment of the mA and/or kV according to patient size, use of iterative reconstruction technique) copyright 2011 [employer]- All Rights Reserved Assessment & Plan - Diagnosis (2) COPD (chronic obstructive pulmonary disease) Is this a current diagnosis for this admission?: Yes (3) Smoker Is this a current diagnosis for this admission?: Yes (4) non obstructed incarcerated incisional h Is this a current diagnosis for this admission?: Yes - Time Time Spent: 30 to 50 Minutes - Inpatient Certification Medical Necessity: Need For IV Fluids, Need for Pain Control, Need for IV Antibiotics - Plan Summary Plan Summary: 38 yo female with known non obstructed incarcerated ventral hernia started c/o pains around it 2 days ago with nausea. Developed incisional/ventral hernia after hysterectomy that was initially repaired with mesh in 2016. The mesh got infected and was removed 6 months later leaving her with a persistent hernia. Had CT scan of abdomen in December 2018 which showed a non-obstructed ventral hernia. Ct scan today showed a subtle inflammation along the mesentery and small amount of fluid in the hernia sac and no obstruction. There is redness of the overlying skin and mild tenderness along the incarcerated hernia. Plan: 1) keep npo 2) start IV antibiotic 3) repeat cbc. Initial wbc was normal 4) ice compress around hernia 5) may need emergency repair
[2019-05-05] MEDS ORDERED: CLINDAMYCIN PHOSPHATE INJ 300 MG/2 ML SDV IV PRN (03:57)
[2019-05-05] MEDS: CLINDAMYCIN PHOSPHATE 750 MG in DEXTROSE 5%-WATER 100 ML IV SCH ×4 (04:32→21:13)
[2019-05-05 04:37] LABS: ABSOLUTE EOSINOPHILS # (AUTO) 0.1 10^3/uL (0.0-0.6); ABSOLUTE LYMPHOCYTES (AUTO) 0.9 10^3/uL (0.5-4.7); ABSOLUTE MONOCYTES (AUTO) 0.3 10^3/uL (0.1-1.4); ABSOLUTE NEUT (AUTO) 4.8 10^3/uL (1.7-8.2); BASOPHILS % (AUTO) 0.4 % (0-2); EOSINOPHILS % (AUTO) 1.5 % (0-6); HEMATOCRIT 37.8 % (36.0-47.0); HEMOGLOBIN 12.8 g/dL (12.0-15.5); LYMPHOCYTES % (AUTO) 15.2 % (13-45); MEAN CORPUSCULAR HEMOGLOBIN 26.3 pg (27.0-33.4); MEAN CORPUSCULAR HGB CONC 33.9 g/dL (32.0-36.0); MEAN CORPUSCULAR VOLUME 78 fl (80-97); MONOCYTES % (AUTO) 4.3 % (3-13); PLATELET COUNT 211 10^3/uL (150-450); RED BLOOD COUNT 4.87 10^6/uL (3.72-5.28); RED CELL DISTRIBUTION WIDTH 15.2 % (11.5-14.0); SEGMENTED NEUTROPHILS % (AUTO) 78.6 % (42-78); TOTAL CELLS COUNTED % (AUTO) 100 %; WHITE BLOOD COUNT 6.1 10^3/uL (4.0-10.5)
[2019-05-05] MEDS: DEXTROSE 5%-LACTATED RINGERS 1,000 ML IV PRN ×2 (05:52→15:54)
[2019-05-05] MEDS: KETOROLAC TROMETHAMINE INJ/PF 30 MG/1 ML SDV IV PRN (08:56)
--- NOTE | 2019-05-05 13:13 | PDOC PROGRESS REPORT ---
Subjective Progress Note for:: 05/05/19 Subjective:: Pain at her hernia site. Reason For Visit: NON OBSTRUCTED VERTRAL HERNIA WITH MILD Physical Exam Vital Signs: Temp Pulse Resp BP Pulse Ox 97.7 F 51 L 16 120/72 96 05/05/19 11:39 05/05/19 11:39 05/05/19 11:39 05/05/19 11:39 05/05/19 11:39 Intake & Output 05/04/19 05/05/19 05/06/19 06:59 06:59 06:59 Intake Total 500 105 Balance 500 105 Weight 115.212 kg General appearance: PRESENT: no acute distress, cooperative Respiratory exam: PRESENT: clear to auscultation anny Cardiovascular exam: PRESENT: RRR GI/Abdominal exam: PRESENT: other - Soft, nondistended, region of herniation at her lower mid abdomen with subtle erythema of the skin but no induration. Tender but no peritoneal signs. Results Laboratory Results: 05/05/19 04:25 05/04/19 19:50 05/04/19 05/04/19 05/04/19 18:30 19:50 19:50 WBC 8.1 RBC 5.15 Hgb 13.6 Hct 40.4 MCV 78 L MCH 26.4 L MCHC 33.7 RDW 15.7 H Plt Count 253 Seg Neutrophils % 64.4 Lymphocytes % 24.8 Monocytes % 6.6 Eosinophils % 3.9 Basophils % 0.3 Absolute Neutrophils 5.2 Absolute Lymphocytes 2.0 Absolute Monocytes 0.5 Absolute Eosinophils 0.3 Absolute Basophils 0.0 Sodium 139.7 Potassium 3.8 Chloride 106 Carbon Dioxide 27 Anion Gap 7 BUN 12 Creatinine 0.69 Est GFR ( Amer) > 60 Est GFR (Non-Af Amer) > 60 Glucose 78 Calcium 9.4 Total Bilirubin 0.5 AST 29 ALT 33 Alkaline Phosphatase 78 Total Protein 6.9 Albumin 4.0 Urine Color YELLOW Urine Appearance TURBID Urine pH 5.0 Ur Specific [place] 1.029 Urine Protein NEGATIVE Urine Glucose (UA) NEGATIVE Urine Ketones NEGATIVE Urine Blood SMALL H Urine Nitrite NEGATIVE Ur Leukocyte Esterase NEGATIVE Urine RBC (Auto) 6 05/05/19 04:25 WBC 6.1 RBC 4.87 Hgb 12.8 Hct 37.8 MCV 78 L MCH 26.3 L MCHC 33.9 RDW 15.2 H Plt Count 211 Seg Neutrophils % 78.6 H Lymphocytes % 15.2 Monocytes % 4.3 Eosinophils % 1.5 Basophils % 0.4 Absolute Neutrophils 4.8 Absolute Lymphocytes 0.9 Absolute Monocytes 0.3 Absolute Eosinophils 0.1 Absolute Basophils 0.0 Sodium Potassium Chloride Carbon Dioxide Anion Gap BUN Creatinine Est GFR ( Amer) Est GFR (Non-Af Amer) Glucose Calcium Total Bilirubin AST ALT Alkaline Phosphatase Total Protein Albumin Urine Color Urine Appearance Urine pH Ur Specific [place] Urine Protein Urine Glucose (UA) Urine Ketones Urine Blood Urine Nitrite Ur Leukocyte Esterase Urine RBC (Auto) Impressions: Abdomen/Pelvis CT 05/05/19 00:00 IMPRESSION: Ventral hernia containing small bowel, possibly incarcerated. TECHNICAL DOCUMENTATION: Quality ID # 436: Final reports with documentation of one or more dose reduction techniques (e.g., Automated exposure control, adjustment of the mA and/or kV according to patient size, use of iterative reconstruction technique) copyright 2011 [employer]- All Rights Reserved Assessment & Plan - Diagnosis (1) Incarcerated hernia Is this a current diagnosis for this admission?: Yes Plan: Chronically incarcerated recurrent incisional hernia at the suprapubic location with prior history of mesh infection requiring mesh excision. From the CT scan it does not appear obstructed. But there is some fluid in the hernia sac. Suspect that she irritated this hernia with her strenuous activity recently at work. I do not think she has intestinal compromise. Will observe. She will need a definitive hernia repair with mesh but would like to get her to the point where this procedure can be done on a controlled elective basis to minimize mesh infection risk and to minimize recurrence.
--- NOTE | 2019-05-05 23:09 | PDOC PROGRESS REPORT ---
Subjective Progress Note for:: 05/05/19 Subjective:: Patient states that she feels better. Has been passing gas. Less abdominal pain. Able to sleep. Patient is hungry. Reason For Visit: NON OBSTRUCTED VENTRAL HERNIA WITH MILD Physical Exam Vital Signs: Temp Pulse Resp BP Pulse Ox 97.8 F 59 L 16 144/77 H 96 05/05/19 16:20 05/05/19 16:20 05/05/19 16:20 05/05/19 16:20 05/05/19 11:39 Intake & Output 05/04/19 05/05/19 05/06/19 06:59 06:59 06:59 Intake Total 500 210 Balance 500 210 Weight 115.212 kg General appearance: PRESENT: no acute distress, cooperative Respiratory exam: PRESENT: clear to auscultation anny Cardiovascular exam: PRESENT: RRR GI/Abdominal exam: PRESENT: other - Soft, nondistended, her lower mid abdominal herniation is soft with much less tenderness than this morning. There is a subtle skin blanching erythema. No induration. Results Laboratory Results: 05/05/19 04:25 05/04/19 19:50 05/05/19 04:25 WBC 6.1 RBC 4.87 Hgb 12.8 Hct 37.8 MCV 78 L MCH 26.3 L MCHC 33.9 RDW 15.2 H Plt Count 211 Seg Neutrophils % 78.6 H Lymphocytes % 15.2 Monocytes % 4.3 Eosinophils % 1.5 Basophils % 0.4 Absolute Neutrophils 4.8 Absolute Lymphocytes 0.9 Absolute Monocytes 0.3 Absolute Eosinophils 0.1 Absolute Basophils 0.0 Impressions: Abdomen/Pelvis CT 05/05/19 00:00 IMPRESSION: Ventral hernia containing small bowel, possibly incarcerated. TECHNICAL DOCUMENTATION: Quality ID # 436: Final reports with documentation of one or more dose reduction techniques (e.g., Automated exposure control, adjustment of the mA and/or kV according to patient size, use of iterative reconstruction technique) copyright 2011 [employer]- All Rights Reserved Assessment & Plan - Diagnosis (1) Incarcerated hernia Is this a current diagnosis for this admission?: Yes Plan: Chronically incarcerated recurrent incisional hernia at the suprapubic location with prior history of mesh infection requiring mesh excision. She does not appear to be obstructed. She is improving with conservative measures. With continued improvement will likely start her on a diet tomorrow with possible discharge in the next couple of days. She will however need to be referred for a hernia repair on an elective basis.
[2019-05-06] MEDS: DEXTROSE 5%-LACTATED RINGERS 1,000 ML IV PRN (04:00)
[2019-05-06] MEDS: KETOROLAC TROMETHAMINE INJ/PF 30 MG/1 ML SDV IV PRN (04:33)
[2019-05-06] MEDS: CLINDAMYCIN PHOSPHATE 750 MG in DEXTROSE 5%-WATER 100 ML IV SCH ×2 (05:35→13:20)
[2019-05-06 06:20] LABS: ABSOLUTE EOSINOPHILS # (AUTO) 0.3 10^3/uL (0.0-0.6); ABSOLUTE LYMPHOCYTES (AUTO) 1.3 10^3/uL (0.5-4.7); ABSOLUTE MONOCYTES (AUTO) 0.3 10^3/uL (0.1-1.4); ABSOLUTE NEUT (AUTO) 3.2 10^3/uL (1.7-8.2); BASOPHILS % (AUTO) 0.5 % (0-2); EOSINOPHILS % (AUTO) 5.1 % (0-6); HEMOGLOBIN 12.6 g/dL (12.0-15.5); LYMPHOCYTES % (AUTO) 25.1 % (13-45); MEAN CORPUSCULAR HEMOGLOBIN 26.5 pg (27.0-33.4); MEAN CORPUSCULAR HGB CONC 34.1 g/dL (32.0-36.0); MEAN CORPUSCULAR VOLUME 78 fl (80-97); PLATELET COUNT 193 10^3/uL (150-450); RED BLOOD COUNT 4.76 10^6/uL (3.72-5.28); RED CELL DISTRIBUTION WIDTH 15.2 % (11.5-14.0); SEGMENTED NEUTROPHILS % (AUTO) 64.3 % (42-78); TOTAL CELLS COUNTED % (AUTO) 100 %; WHITE BLOOD COUNT 5.1 10^3/uL (4.0-10.5)
[2019-05-06 06:29] LABS: ANION GAP 5 (5-19); BLOOD UREA NITROGEN 7 mg/dL (7-20); CALCIUM 8.5 mg/dL (8.4-10.2); CARBON DIOXIDE 28 mmol/L (22-30); CHLORIDE 106 mmol/L (98-107); GLUCOSE 96 mg/dL (75-110); POTASSIUM 4.1 mmol/L (3.6-5.0)
--- NOTE | 2019-05-06 11:30 | RADIOLOGY REPORT (SQ) ---
EXAM DESCRIPTION: ABDOMEN 2 VIEWS COMPLETED DATE/TIME: 05/06/2019 9:41 am REASON FOR STUDY: f/u chronically incarcerated hernia COMPARISON: None. NUMBER OF VIEWS: Two views. TECHNIQUE: Supine and erect/decubitus radiographic images of the abdomen acquired. LIMITATIONS: None. FINDINGS: FREE AIR: None. No abnormal gas collections. LUNG BASES: Clear. BOWEL GAS PATTERN: Nonobstructive pattern. There is contrast in the colon. CALCIFICATIONS: No suspicious calcifications. SOFT TISSUES: No gross mass or suggestion of organomegaly. HARDWARE: None in the abdomen. BONES: No acute fracture. No worrisome bone lesions. OTHER: No other significant finding. IMPRESSION: NO RADIOGRAPHIC EVIDENCE FOR ACUTE ABDOMINAL DISEASE. TECHNICAL DOCUMENTATION: JOB ID: [id number] [employer]- All Rights Reserved Reading location - IP/workstation name: [email or web address]
--- NOTE | 2019-05-06 15:13 | PDOC DISCHARGE SUMMARY ---
General - Admit/Disc Date/PCP Admission Date/Primary Care Provider: 05/05/19 03:47 OLAF VASQUEZ MD Discharge Date: 05/06/19 - Additional Information Resuscitation Status: Full Code Discharge Diet: As Tolerated Discharge Activity: No Lifting Over 10 Pounds Home Medications: Albuterol Sulfate [Proair HFA Inhalation Aerosol 8.5 gm MDI] 2 puff IH Q4HP PRN 05/05/19 Amlodipine Besylate [Norvasc 10 mg Tablet] 10 mg PO DAILY 05/05/19 Budesonide/Formoterol Fumarate [Symbicort HFA 160-4.5 mcg Inhaler 6 gm] 1 puff IH Q12 05/05/19 History of Present Illness Patient complains of: lower abd pain and constipation, now resolved with bowel movement in hosp. pt w;ith longstanding ventral hernia. s/p failed repair History of Present Illness: VERONICA HERCULES is a 38 year old female presented wit nausea and vomiting and lower abd pain from known low abd venttral hernia Hospital Course Hospital Course: pt was admitted for observation pt started having nl bm's shortly after admission and now with resolution of pain pt wants to eat Physical Exam Vital Signs: Temp Pulse Resp BP Pulse Ox 98.0 F 61 16 129/74 H 98 05/06/19 11:10 05/06/19 11:10 05/06/19 11:10 05/06/19 11:10 05/06/19 11:10 Intake & Output 05/05/19 05/06/19 05/07/19 06:59 06:59 06:59 Intake Total 500 420 Balance 500 420 Weight 115.212 kg 115.19 kg General appearance: PRESENT: obese Head exam: PRESENT: normocephalic Eye exam: PRESENT: EOMI Mouth exam: PRESENT: moist Neck exam: PRESENT: full ROM Respiratory exam: PRESENT: clear to auscultation anny Cardiovascular exam: PRESENT: RRR Pulses: PRESENT: +2 pedal pulses bilateral Vascular exam: PRESENT: normal capillary refill GI/Abdominal exam: PRESENT: other - pt has lower abd hernia extending to her mons pubis easily reducible Rectal exam: PRESENT: deferred Extremities exam: PRESENT: full ROM Musculoskeletal exam: PRESENT: ambulatory Neurological exam: PRESENT: alert, awake, oriented to person, oriented to place Psychiatric exam: PRESENT: appropriate affect Skin exam: PRESENT: dry Results Laboratory Results: 05/06/19 06:06 05/06/19 06:06 05/06/19 05/06/19 06:06 06:06 WBC 5.1 RBC 4.76 Hgb 12.6 Hct 37.0 MCV 78 L MCH 26.5 L MCHC 34.1 RDW 15.2 H Plt Count 193 Seg Neutrophils % 64.3 Lymphocytes % 25.1 Monocytes % 5.0 Eosinophils % 5.1 Basophils % 0.5 Absolute Neutrophils 3.2 Absolute Lymphocytes 1.3 Absolute Monocytes 0.3 Absolute Eosinophils 0.3 Absolute Basophils 0.0 Sodium 138.6 Potassium 4.1 Chloride 106 Carbon Dioxide 28 Anion Gap 5 BUN 7 Creatinine 0.63 Est GFR ( Amer) > 60 Est GFR (Non-Af Amer) > 60 Glucose 96 Calcium 8.5 Impressions: Abdomen/Pelvis CT 05/05/19 00:00 IMPRESSION: Ventral hernia containing small bowel, possibly incarcerated. TECHNICAL DOCUMENTATION: Quality ID # 436: Final reports with documentation of one or more dose reduction techniques (e.g., Automated exposure control, adjustment of the mA and/or kV according to patient size, use of iterative reconstruction technique) copyright 2011 [employer]- All Rights Reserved Abdomen X-Ray 05/06/19 07:00 IMPRESSION: NO RADIOGRAPHIC EVIDENCE FOR ACUTE ABDOMINAL DISEASE. Qualifiers - * PATIENT BEING DISCHARGED WITH ANY OF THE FOLLOWING DIAGNOSIS: No VTE patient discharged on overlapping Therapy?: No Reason(s) for not prescribing Overlap Therapy:: Not indicated Reason(s) for not prescribing Anti-thrombolytic therapy:: Not indicated Reason(s) for not prescribing Anti-coagulation therapy:: Not indicated Reason(s) for not prescribing Statins therapy:: Not indicated Reason(s) for not prescribing Aspirin therapy:: Not indicated Reason(s) for not prescribing Statin therapy:: Not indicated Reason(s) for not prescribing ACEI/ARBS:: Not indicated Acute Heart Failure - Is this a Heart Failure Patient?: No Plan Discharge Plan: pt with large recurrent lower abd incisional hernia s/p failed repair presented iwth pain over the evening pt had a bm and resolution of pain pt examined this am a nd noted to have a reducible low ventral hernia iwth extension into mons pubis long discusssion wiht pt regarding repair she will need an open repair iwth possible panniculectomy at same time pt will need to loos substantial weight prior to surgery I will discharge her home today and she will f/u in surgery clinic for futher disciussion
[2019-05-06 15:24] VITALS: BP 121/68
== END 2019-05-06 16:05 | disposition home or self-care (01) ==
LOC: ER 18:20 → INTOOBSV 05-05 03:47 → EH 05-05 03:47 → 2N 05-05 05:18
PROVIDERS: ATTEND Surgery
DX: K43.0 Incisional hernia with obstruction, without gangrene (principal); I10 Essential (primary) hypertension; J44.9 Chronic obstructive pulmonary disease, unspecified; F17.200 Nicotine dependence, unspecified, uncomplicated; E66.01 Morbid (severe) obesity due to excess calories; Z91.14 Patient's other noncompliance with medication regimen; Z90.710 Acquired absence of both cervix and uterus; Z98.890 Other specified postprocedural states; Z59.8 Other problems related to housing and economic circumstances; Z90.49 Acquired absence of other specified parts of digestive tract; Z98.51 Tubal ligation status
CPT/HCPCS: 96376; 99285; 96361; 96374; 96375; 36415 ×3; 85025 ×3; 80048; 80053; 81001; 74019; 74177; G0378 ×3; J3490 ×2; J1885 ×2; J2270; J2405 ×2; J7060 ×2; J7121 ×2; J7040

== ENCOUNTER 2019-09-30 13:51 | Inpatient (IN) | payer SELFPAY ==
[~2019-09-30 13:51] MED LIST: GLYCOPYRROLATE 1 MG/5 ML VIAL ONE; NEOSTIGMINE METHYLSULFATE 10 MG/10 ML VIAL ONE; PHENYLEPHRINE HCL INJ/PF 10 MG/1 ML SDV ONE; ROCURONIUM BROMIDE INJ 50 MG/5 ML VIAL IV ONE; SUCCINYLCHOLINE CHLORIDE INJ 200 MG/10 ML VIAL ONE
[2019-09-30] MEDS ORDERED: NORMAL SALINE 1000 ML 1,000 ML IV ONE ×2 (14:28→16:05)
[2019-09-30] MEDS ORDERED: FENTANYL CITRATE INJ/PF 100 MCG/2 ML AMPUL IV ONE (14:52)
--- NOTE | 2019-09-30 14:52 | ER Document Report ---
ED GI/ - General Chief Complaint: Abdominal Pain Stated Complaint: NAUSEA/VOMITING Time Seen by Provider: 09/30/19 14:17 Information source: Patient Notes: Patient presents complaining of abdominal pain nausea and vomiting for the past 2 days. Patient states the pain does radiate through to her back. No fever or urinary symptoms. Patient reports last bowel movement was yesterday. TRAVEL OUTSIDE OF THE [place] IN LAST 30 DAYS: No - HPI Patient complains to provider of: Abdominal pain, Vomiting Onset: Yesterday Timing/Duration: Persistent Quality of pain: Sharp Pain Level: 4 Location: Other - Area just superior of the umbilicus Vaginal bleeding (Compared to normal period): None Associated symptoms: Nausea, Vomiting. 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 Lives with: Family Family History: Arthritis, Malignancy, CAD, CVA, DM, Hyperlipidemia, Hypertension, Reviewed & Not Pertinent, Thyroid Disfunction Patient has suicidal ideation: No Patient has homicidal ideation: No - Past Medical History Cardiac Medical History: Reports: Hx Hypertension Pulmonary Medical History: Reports: Hx Asthma, Hx Bronchitis, Hx COPD - not on home O2, Hx Pneumonia Musculoskeletal Medical History: Reports Hx Arthritis, Reports Hx Musculoskeletal Trauma Psychiatric Medical History: Reports: Hx Depression Past Surgical History: Reports: Hx Section - 3, Hx Cholecystectomy, Hx Gynecologic Surgery - 3 , Hx Herniorrhaphy, Hx Hysterectomy, Hx Tubal Ligation, Other - Multiple abdominal wall hernia repair involving Pfannenstiel incision - Immunizations Immunizations up to date: Yes Hx Diphtheria, Pertussis, Tetanus Vaccination: - unsure of date Hx Pneumococcal Vaccination: 01/25/13 Review of Systems - Review of Systems Constitutional: No symptoms reported. denies: Fever, Recent illness EENT: No symptoms reported Cardiovascular: No symptoms reported. denies: Chest pain Respiratory: No symptoms reported. denies: Cough, Short of breath Gastrointestinal: Abdominal pain, Nausea, Vomiting, Poor fluid intake. denies: Diarrhea Genitourinary: No symptoms reported. denies: Dysuria, Flank pain Female Genitourinary: No symptoms reported. denies: Vaginal discharge, Vaginal bleeding Musculoskeletal: Back pain Skin: No symptoms reported Hematologic/Lymphatic: No symptoms reported Neurological/Psychological: No symptoms reported Physical Exam - Vital signs Vitals: Resp BP Pulse Ox 17 155/85 H 93 09/30/19 14:10 09/30/19 14:10 09/30/19 14:10 - General General appearance: Appears well, Alert In distress: None - HEENT Head: Normocephalic, Atraumatic Eyes: Normal Conjunctiva: Normal Nasal: Normal Mouth/Lips: Normal Mucous membranes: Normal Neck: Normal, Supple. No: Lymphadenopathy - Respiratory Respiratory status: No respiratory distress Chest status: Nontender Breath sounds: Normal. No: Rales, Rhonchi, Stridor, Wheezing Chest palpation: Normal - Cardiovascular Rhythm: Regular Heart sounds: S1 appreciated, S2 appreciated Murmur: No - Abdominal Inspection: Morbidly Obese Distension: No distension Bowel sounds: Normal Tenderness: Tender - epigastric, Guarding Organomegaly: No organomegaly - Back Back: Normal, Nontender. No: CVA tenderness - Extremities General upper extremity: Normal inspection, Nontender, Normal strength General lower extremity: Normal inspection, Nontender, Normal strength - Neurological Neuro grossly intact: Yes Cognition: Normal Orientation: AAOx4 Yelena Coma Scale Eye Opening: Spontaneous Yelena Coma Scale Verbal: Oriented [place] Coma Scale Motor: Obeys Commands Yelena Coma Scale Total: 15 - Psychological Associated symptoms: Normal affect, Normal mood - Skin Skin Temperature: Warm Skin Moisture: Dry Skin Color: Normal Course - Re-evaluation Re-evalutation: 09/30/19 16:11 Patient continues with pain just above the umbilicus. Patient feels that pain radiates through to her back. Additional IV fluids ordered and pain medicine at this time. 09/30/19 17:41 Patient continues with a leukocytosis although improved from yesterday's visit. Patient has required multiple doses of antiemetic medication. Patient continues with upper abdominal tenderness. CT scan has findings worrisome for possible small bowel obstruction. Consulted with Dr. Burleson who agrees to come and evaluate patient. 09/30/19 18:28 Dr. Burleson evaluated patient and plans to take her to the OR. - Vital Signs Vital signs: Temp Pulse Resp BP Pulse Ox 97.9 F 83 14 151/93 H 100 09/30/19 18:34 09/30/19 18:34 09/30/19 18:34 09/30/19 18:34 09/30/19 18:34 - Laboratory Result Diagrams: 09/30/19 14:15 09/30/19 14:15 Laboratory results interpreted by me: 09/30/19 09/30/19 09/30/19 14:15 14:15 16:03 WBC 14.8 H RBC 5.91 H Hgb 15.9 H MCV 79 L MCH 26.9 L RDW 15.6 H Lymph % (Auto) 7.8 L Absolute Neuts (auto) 12.8 H Seg Neutrophils % 86.2 H Glucose 126 H Urine Protein 100 H Urine Ketones TRACE H Urine Urobilinogen 2.0 H Labs- Entire Visit 09/30/19 09/30/19 09/30/19 14:15 14:15 16:03 WBC 14.8 H RBC 5.91 H Hgb 15.9 H Hct 46.7 MCV 79 L MCH 26.9 L MCHC 34.0 RDW 15.6 H Plt Count 282 Lymph % (Auto) 7.8 L [place] % (Auto) 4.7 Eos % (Auto) 1.2 Baso % (Auto) 0.1 Absolute Neuts (auto) 12.8 H Absolute Lymphs (auto) 1.2 Absolute Monos (auto) 0.7 Absolute Eos (auto) 0.2 Absolute Basos (auto) 0.0 Seg Neutrophils % 86.2 H Sodium 138.3 Potassium 4.3 Chloride 100 Carbon Dioxide 27 Anion Gap 11 BUN 19 Creatinine 0.77 Est GFR ( Amer) > 60 Est GFR (MDRD) Non-Af > 60 Glucose 126 H Calcium 9.8 Total Bilirubin 1.0 Direct Bilirubin 0.3 Neonat Total Bilirubin Not Reportable Neonat Direct Bilirubin Not Reportable Neonat Indirect Bili Not Reportable AST 24 ALT 29 Alkaline Phosphatase 81 Total Protein 7.3 Albumin 4.1 Lipase 72.2 Urine Color PAULIE Urine Appearance SLIGHTLY-CLOUDY Urine pH 5.0 Ur Specific [place] 1.031 Urine Protein 100 H Urine Glucose (UA) NEGATIVE Urine Ketones TRACE H Urine Blood NEGATIVE Urine Nitrite NEGATIVE Urine Bilirubin NEGATIVE Urine Urobilinogen 2.0 H Ur Leukocyte Esterase NEGATIVE Urine WBC (Auto) 6 Urine RBC (Auto) 1 Squamous Epi Cells Auto 5 Granular Casts (Auto) 1 Urine Mucus (Auto) MANY Urine Ascorbic Acid NEGATIVE - Diagnostic Test Radiology reviewed: Reports reviewed Discharge - Discharge Clinical Impression: Incarcerated hernia, Small bowel obstruction Ventral hernia Qualifiers: Obstruction and gangrene presence: with obstruction but without gangrene Qualified Code(s): K43.6 - Other and unspecified ventral hernia with obstruction, without gangrene Condition: Fair Disposition: ADMITTED INPATIENT Admitting Provider: Surgicalist Unit Admitted: Medical Floor
[2019-09-30 15:17] LABS: ABSOLUTE EOSINOPHILS # (AUTO) 0.2 10^3/uL (0.0-0.6); ABSOLUTE LYMPHOCYTES (AUTO) 1.2 10^3/uL (0.5-4.7); ABSOLUTE MONOCYTES (AUTO) 0.7 10^3/uL (0.1-1.4); ABSOLUTE NEUT (AUTO) 12.8 10^3/uL (1.7-8.2); BASOPHILS % (AUTO) 0.1 % (0-2); EOSINOPHILS % (AUTO) 1.2 % (0-6); HEMATOCRIT 46.7 % (36.0-47.0); HEMOGLOBIN 15.9 g/dL (12.0-15.5); LYMPHOCYTES % (AUTO) 7.8 % (13-45); MEAN CORPUSCULAR HEMOGLOBIN 26.9 pg (27.0-33.4); MEAN CORPUSCULAR VOLUME 79 fl (80-97); MONOCYTES % (AUTO) 4.7 % (3-13); PLATELET COUNT 282 10^3/uL (150-450); RED BLOOD COUNT 5.91 10^6/uL (3.72-5.28); RED CELL DISTRIBUTION WIDTH 15.6 % (11.5-14.0); SEGMENTED NEUTROPHILS % (AUTO) 86.2 % (42-78); TOTAL CELLS COUNTED % (AUTO) 100 %; WHITE BLOOD COUNT 14.8 10^3/uL (4.0-10.5)
[2019-09-30 15:20] LABS: ALBUMIN 4.1 g/dL (3.5-5.0); ALKALINE PHOSPHATASE 81 U/L (38-126); ANION GAP 11 (5-19); ASPARTATE AMINO TRANSFERASE 24 U/L (14-36); BILIRUBIN,DIRECT 0.3 mg/dL (0.0-0.4); BLOOD UREA NITROGEN 19 mg/dL (7-20); CALCIUM 9.8 mg/dL (8.4-10.2); CARBON DIOXIDE 27 mmol/L (22-30); CHLORIDE 100 mmol/L (98-107); GLUCOSE 126 mg/dL (75-110); POTASSIUM 4.3 mmol/L (3.6-5.0); TOTAL PROTEIN 7.3 g/dL (6.3-8.2)
[2019-09-30] MEDS ORDERED: ONDANSETRON HCL INJ/PF 4 MG/2 ML SDV IV ONE (16:10)
[2019-09-30] MEDS ORDERED: MORPHINE SULFATE 10 MG/ML INJ IV ONE (16:10)
[2019-09-30 16:24] LABS: APPEARANCE,URINE SLIGHTLY-CLOUDY; BILIRUBIN,URINE NEGATIVE (NEGATIVE); COLOR,URINE AMBER; GLUCOSE, URINE NEGATIVE (NEGATIVE); KETONES,URINE TRACE mg/dL (NEGATIVE); LEUKOCYTE ESTERASE,URINE NEGATIVE (NEGATIVE); NITRITE,URINE NEGATIVE (NEGATIVE); PROTEIN,URINE 100 mg/dL (NEGATIVE); URINE SPECIFIC GRAVITY 1.031
--- NOTE | 2019-09-30 17:29 | RADIOLOGY REPORT (SQ) ---
EXAM DESCRIPTION: CT ABD/PELVIS WITH IV ONLY COMPLETED DATE/TIME: 09/30/2019 4:50 pm REASON FOR STUDY: abd pain, n/v COMPARISON: 10/06/2015 TECHNIQUE: CT scan of the abdomen and pelvis performed using helical scanning technique with dynamic intravenous contrast injection. No oral contrast. Images reviewed with lung, soft tissue, and bone windows. Reconstructed coronal and sagittal MPR images reviewed. Delayed images for evaluation of the urinary system also acquired. All images stored on PACS. All CT scanners at this facility use dose modulation, iterative reconstruction, and/or weight based d osing when appropriate to reduce radiation dose to as low as reasonably achievable (ALARA). [facility]: Dose Right [facility]: CareDose [facility]: Dose Right [facility]: Teradose 4D [facility]: Game [employer] CONTRAST TYPE AND DOSE: contrast/concentration: Isovue 350.00 mg/ml; Total Contrast Delivered: 100.0 ml; Total Saline Delivered: 72.0 ml RENAL FUNCTION: BUN 19 creatinine 0.77 RADIATION DOSE: CT Rad equipment meets quality standard of care and radiation dose reduction techniq ues were employed. CTDIvol: 21.0 - 21.1 mGy. DLP: 2374 mGy-cm.. LIMITATIONS: None. FINDINGS: LOWER CHEST: No significant findings. No nodules or infiltrates. LIVER: Normal size. No masses. No dilated ducts. SPLEEN: Mild splenomegaly. The splenic index is 610 where 480 is considered normal. PANCREAS: No masses. No significant calcifications. No adjacent inflammation or peripancreatic fluid collections. Pancreatic duct not dilated. GALLBLADDER: Surgically absent. ADRENAL GLANDS: No significant masses or asymmetry. RIGHT KIDNEY AND URETER: No solid masses. No significant calcifications. No hydronephrosis or hyd roureter. LEFT KIDNEY AND URETER: No solid masses. No significant calcifications. No hydronephrosis or hydr oureter. AORTA AND VESSELS: No aneurysm. No dissection. Renal arteries, SMA, celiac without stenosis. RETROPERITONEUM: No retroperitoneal adenopathy, hemorrhage or masses. BOWEL AND PERITONEAL CAVITY: There are some prominent fluid-filled loops of small bowel. APPENDIX: Normal. PELVIS: No mass. No free fluid. Normal bladder. ABDOMINAL WALL: There is a 4 cm wide ventral hernia containing a loop of bowel. BONES: No significant or acute findings. OTHER: No other significant finding. IMPRESSION: 1. Ventral hernia containing bowel. Cannot exclude partial small bowel obstruction. 2. Mild splenomegaly. TECHNICAL DOCUMENTATION: JOB ID: [id number] Quality ID # [id number]: Final reports with documentation of one or more dose reduction techniques (e.g., Au tomated exposure control, adjustment of the mA and/or kV according to patient size, use of iterative reconstruction technique) 2010 [employer]- All Rights Reserved Reading location - IP/workstation name: [email or web address]
[2019-09-30] MEDS ORDERED: NORMAL SALINE 1000 ML 1,000 ML IV PRN (18:14)
--- NOTE | 2019-09-30 18:25 | PDOC H&P ---
History of Present Illness Admission Date/PCP: OLAF VASQUEZ MD Patient complains of: Abdominal pain with bulge for 2 years History of Present Illness: VERONICA HERCULES is a 39 year old female, morbidly obese, with a 2-year history of lower abdominal bulge and pain diagnosis of ventral hernia. She presents the emergency room with a 4-hour history of increased lover abdominal pain to the epigastrium with swelling and intense nausea. Patient came to the emergency room yesterday with above complaints and was recommended admission; however, she the ED AMA. She returns today with worsening of her symptoms. A CT scan abdomen pelvis has been done and it reveals a lower abdominal ventral hernia containing loops of bowels with possible mechanical small bowel obstruction. Patient had multiple abdominal surgeries including 3 C-sections, 1 transabdominal hysterectomy, and cholecystectomy Past Medical History Cardiac Medical History: Reports: Hypertension Pulmonary Medical History: Reports: Asthma, Bronchitis, Chronic Obstructive Pulmonary Disease (COPD) - not on home O2, Pneumonia Endocrine Medical History: Denies: Diabetes Mellitus Type 1, Diabetes Mellitus Type 2, Hyperthyroidism, Hypothyroidism Musculoskeltal Medical History: Reports: Arthritis Psychiatric Medical History: Reports: Depression Past Surgical History Past Surgical History: Reports: Section - 3, Cholecystectomy, Herniorrhaphy, Hysterectomy, Tubal Ligation, Other - Multiple abdominal wall hernia repair involving Pfannenstiel incision Social History Smoking Status: Unknown if Ever Smoked Frequency of Alcohol Use: Occasional Hx Recreational Drug Use: No Drugs: None Hx Prescription Drug Abuse: No Family History Family History: Arthritis, Malignancy, CAD, CVA, DM, Hyperlipidemia, Hypertension, Reviewed & Not Pertinent, Thyroid Disfunction Parental Family History Reviewed: Yes - See above Children Family History Reviewed: No Sibling(s) Family History Reviewed.: No Medication/Allergy Home Medications: Albuterol Sulfate [Proair HFA Inhalation Aerosol 8.5 gm MDI] 2 puff IH Q4HP PRN 05/05/19 Amlodipine Besylate [Norvasc 10 mg Tablet] 10 mg PO DAILY 05/05/19 Budesonide/Formoterol Fumarate [Symbicort HFA 160-4.5 mcg Inhaler 6 gm] 1 puff IH Q12 05/05/19 Allergies/Adverse Reactions: adhesive tape Allergy (Verified 09/30/19 14:03) cephalexin [From Keflex] Allergy (Verified 09/30/19 14:03) Physical Exam Vital Signs: Temp Pulse Resp BP Pulse Ox 97.9 F 86 13 124/66 95 09/30/19 14:19 09/30/19 14:19 09/30/19 17:01 09/30/19 17:01 09/30/19 17:01 Intake & Output 09/29/19 09/30/19 10/01/19 06:59 06:59 06:59 Intake Total 1999 Balance 1999 Weight 116 kg General appearance: PRESENT: mild distress, morbidly obese Head exam: PRESENT: atraumatic Eye exam: PRESENT: EOMI Mouth exam: PRESENT: dry mucosa, neck supple Neck exam: PRESENT: full ROM Respiratory exam: PRESENT: clear to auscultation anny Cardiovascular exam: PRESENT: RRR GI/Abdominal exam: PRESENT: distended, hernia - Hernia present in the lower mid abdomen containing loop of bowel nonreducible, tenderness - Diffuse Rectal exam: PRESENT: deferred Extremities exam: PRESENT: full ROM Musculoskeletal exam: PRESENT: full ROM Neurological exam: PRESENT: alert, awake, oriented to time Psychiatric exam: PRESENT: anxious Skin exam: PRESENT: warm Results Laboratory Results: 09/30/19 14:15 09/30/19 14:15 09/30/19 09/30/19 09/30/19 14:15 14:15 16:03 WBC 14.8 H RBC 5.91 H Hgb 15.9 H Hct 46.7 MCV 79 L MCH 26.9 L MCHC 34.0 RDW 15.6 H Plt Count 282 Seg Neutrophils % 86.2 H Sodium 138.3 Potassium 4.3 Chloride 100 Carbon Dioxide 27 Anion Gap 11 BUN 19 Creatinine 0.77 Est GFR ( Amer) > 60 Glucose 126 H Calcium 9.8 Total Bilirubin 1.0 AST 24 Alkaline Phosphatase 81 Total Protein 7.3 Albumin 4.1 Lipase 72.2 Urine Color PAULIE Urine Appearance SLIGHTLY-CLOUDY Urine pH 5.0 Ur Specific [place] 1.031 Urine Protein 100 H Urine Glucose (UA) NEGATIVE Urine Ketones TRACE H Urine Blood NEGATIVE Urine Nitrite NEGATIVE Ur Leukocyte Esterase NEGATIVE Urine WBC (Auto) 6 Urine RBC (Auto) 1 Impressions: Abdomen/Pelvis CT 09/30/19 16:07 IMPRESSION: 1. Ventral hernia containing bowel. Cannot exclude partial small bowel obstruction. 2. Mild splenomegaly. Assessment & Plan - Diagnosis (1) Incarcerated hernia Is this a current diagnosis for this admission?: Yes (2) Smoker Is this a current diagnosis for this admission?: Yes - Plan Summary Plan Summary: Assessment: Morbidly obese (BMI 40) 39-year-old female with a 2-day history of severe lower abdominal pain, intense nausea, and midline lower ventral hernia nonreducible The above represents a strangulated ventral hernia History of multiple lower abdominal operations including 3 sections and 1 transabdominal hysterectomy The patient was previously seen in the emergency room yesterday and recommended admission: However, she left the emergency department AMA Morbid obesity Hypertension History of tobacco smoking Blood work within normal limits Plan: Plan emergent laparotomy, open repair of strangulated ventral hernia with mesh, bowel resection Procedure, risks, benefits, complications, alternatives, explained to the patient, her questions were fully answered to her satisfaction, and she decides to proceed tonight N.p.o. IV fluids 2 L normal saline bolus followed by normal saline 150 mL an hour Admission to follow Levaquin/Flagyl preop
[2019-09-30] MEDS ORDERED: IPRATROPIUM/ALBUTEROL 0.5-2.5 MG/3 ML AMPUL NEB ONE (18:30)
[2019-09-30] MEDS ORDERED: METRONIDAZOLE 500 MG/NS RTU 500 MG/100 ML RTUPB IV ONE ×2 (18:58→19:00)
[2019-09-30] MEDS ORDERED: KETOROLAC TROMETHAMINE 60 MG/2 ML SDV ONE (18:58)
[2019-09-30] MEDS ORDERED: FENTANYL CITRATE INJ/PF 250 MCG/5 ML AMPULE ONE (18:58)
[2019-09-30] MEDS ORDERED: MIDAZOLAM 2 MG/2 ML INJ ONE (18:58)
[2019-09-30] MEDS ORDERED: LEVOFLOXACIN 750 MG/D5W RTU 750 MG/150 ML RTUPB IV ONE (18:58)
[2019-09-30] MEDS ORDERED: PROPOFOL INJ 200 MG/20 ML VIAL IV ONE (18:58)
[2019-09-30] MEDS ORDERED: DEXAMETHASONE SOD PHOSPHATE INJ 4 MG/1 ML VIAL ONE (18:59)
[2019-09-30] MEDS ORDERED: ONDANSETRON HCL INJ/PF 4 MG/2 ML SDV ONE (18:59)
[2019-09-30] MEDS ORDERED: LIDOCAINE 0.5% INJ-PF (5 MG/ML) 50 ML SDV ONE (18:59)
[2019-09-30] MEDS ORDERED: LEVOFLOXACIN 500 MG/D5W RTU 500 MG/100 ML RTUPB IV ONE (19:00)
--- NOTE | 2019-09-30 20:10 | EKG REPORT ---
SEVERITY:- NORMAL ECG - SINUS RHYTHM : Confirmed by: Analisa Sumner MD 30-Sep-2019 20:09:32
[2019-09-30] MEDS ORDERED: MORPHINE SULFATE 10 MG/ML INJ IV PRN (20:13)
[2019-09-30] MEDS ORDERED: PROMETHAZINE HCL INJ 25 MG/1 ML VIAL IV PRN ×2 (20:13)
[2019-09-30] MEDS ORDERED: FENTANYL CITRATE INJ/PF 100 MCG/2 ML AMPUL IV PRN ×3 (20:13)
[2019-09-30] MEDS ORDERED: OXYCODONE-ACETAMINOPHEN 5-325 MG TABLET PO PRN ×2 (20:13)
[2019-09-30] MEDS ORDERED: MEPERIDINE HCL/PF INJ 25 MG/1 ML DISP.SYRIN IV PRN (20:13)
[2019-09-30] MEDS ORDERED: DIPHENHYDRAMINE HCL 50 MG/ML VIAL IV PRN (20:13)
[2019-09-30] MEDS ORDERED: ONDANSETRON HCL INJ/PF 4 MG/2 ML SDV IV PRN ×2 (20:13→23:19)
[2019-09-30] MEDS ORDERED: MICROFIBRILLAR COLLAGEN 1 GM PACK ONE (21:54)
[2019-09-30] MEDS ORDERED: GLUCAGON,HUMAN RECOMB 1 MG INJ SUBCUT PRN (23:13)
[2019-09-30] MEDS ORDERED: DEXTROSE 40% GEL 15 GM TUBE PO PRN ×2 (23:13)
[2019-09-30] MEDS ORDERED: DEXTROSE 50%-WATER 25 GM/50 ML DISP.SYRIN IV PRN ×2 (23:13)
--- NOTE | 2019-09-30 23:13 | Operative Report ---
Operative Report DATE OF SURGERY: 09/30/19 PREOPERATIVE DIAGNOSIS: Incarcerated and strangulated ventral hernia POSTOPERATIVE DIAGNOSIS: Same OPERATION: Repaired of incarcerated strangulated ventral hernia with absorbable mesh. Bilateral component separation. Revision of abdominal wall scar SURGEON: MARCI KING ANESTHESIA: GA TISSUE REMOVED OR ALTERED: Hernia sac COMPLICATIONS: None ESTIMATED BLOOD LOSS: 50 mL INTRAOPERATIVE FINDINGS: Large hernia sac originating from the lower end of an old midline laparotomy incision PROCEDURE: The procedure was done in the operating room, the patient was placed in a supine position, general anesthesia induced by endotracheal intubation, Browning catheter was inserted, nasogastric tube was inserted, the abdomen was prepped and draped in the usual fashion. The large incarcerated/strangulated ventral hernia was located in the lower abdomen just above the symphysis pubis as a large 10 cm in length and 12 cm in width bulge. A midline incision was made from just above the bulge to just below it and the skin flaps were elevated on either side so to separate the skin from the large hernia sac. The dissection was then continued until the sac was completely dissected circumferentially down to fascia. When this was accomplished, the hernia sac was opened with scissors and the peritoneal cavity was entered. Inspection of the hernia sac revealed the presence of viable loops of bowel, the hernia sac was opened completely, the loops of bowel were pushed inside the peritoneal cavity. Few adhesions between the the loops of bowel and the hernia sac were taken down sharply or with Bovie; when this was accomplished the sac was circumferentially divided at the level of the fascia edge. Inspection of the peritoneal cavity revealed several loops of small bowel which adherent to the edges of the hernia defect. These adhesions were taken down sharply and with Bovie. When this was accomplished, a large piece piece of absorbable mesh was secured to the edges of the hernia defect using vertical mattress interrupted 0 Prolene sutures which were left untied. Once the Prolene sutures were placed, these were tied sequentially. The skin flaps were then elevated on both sides at the level of the fascia; when the anterior axillary line was reached the dissection was interrupted and a component separation was obtained by dividing the external obique fascia with Bovie bilaterally. The midline fascial defect was closed with #1 looped PDS suture without tension. A 15 Monegasque round Rj drain was inserted through a separate stab wound in the right lower quadrant into the subcutaneous pockets and secured to the skin with a 2-0 nylon suture. The subcutaneous pockets were irrigated with normal saline solution until clear and local bleeders were cauterized. Avitene was spread throughout the subcutaneous pockets to prevent formation of seroma. The skin edges of the hernia defect were then trimmed so that the wound could be closed horizontally using interrupted, deep, inverted, [id number] 2-0 Vicryl sutures, rojelio were used to close the skin. The wound was covered with sterile dressings. The patient tolerated the procedure well, was extubated, and transferred to the recovery room in satisfactory conditions.
[2019-09-30] MEDS ORDERED: PHARMACY COMMUNICATION ORDER MC NR (23:15)
[2019-09-30] MEDS ORDERED: INFLUENZA QUAD (6MOS+) 2019-20 VAC 0.5 ML SYR IM ONE (23:33)
[2019-10-01] MEDS ORDERED: FAMOTIDINE INJ/PF 20 MG/2 ML SDV IV ONE (00:15)
[2019-10-01] MEDS: METRONIDAZOLE 500 MG/NS RTU 500 MG/100 ML RTUPB IV SCH ×2 (02:07→11:02)
[2019-10-01] MEDS: MORPHINE SULFATE 10 MG/ML INJ IV PRN ×3 (03:42→20:49)
[2019-10-01] MEDS: NORMAL SALINE 1000 ML 1,000 ML IV PRN (05:27)
[2019-10-01 05:57] LABS: ABSOLUTE MONOCYTES (AUTO) 0.4 10^3/uL (0.1-1.4); EOSINOPHILS % (AUTO) 0.1 % (0-6); MEAN CORPUSCULAR HGB CONC 33.9 g/dL (32.0-36.0); MEAN CORPUSCULAR VOLUME 79 fl (80-97); RED CELL DISTRIBUTION WIDTH 15.3 % (11.5-14.0); TOTAL CELLS COUNTED % (AUTO) 100 %
[2019-10-01 05:58] LABS: BASOPHILS % (AUTO) 0.2 % (0-2); HEMATOCRIT 39.2 % (36.0-47.0); HEMOGLOBIN 13.3 g/dL (12.0-15.5); LYMPHOCYTES % (AUTO) 5.8 % (13-45); MEAN CORPUSCULAR HEMOGLOBIN 26.8 pg (27.0-33.4); MONOCYTES % (AUTO) 3.4 % (3-13); PLATELET COUNT 227 10^3/uL (150-450); RED BLOOD COUNT 4.95 10^6/uL (3.72-5.28); SEGMENTED NEUTROPHILS % (AUTO) 90.5 % (42-78); WHITE BLOOD COUNT 12.7 10^3/uL (4.0-10.5)
[2019-10-01 05:59] LABS: ABSOLUTE LYMPHOCYTES (AUTO) 0.7 10^3/uL (0.5-4.7); ABSOLUTE NEUT (AUTO) 11.5 10^3/uL (1.7-8.2)
[2019-10-01] MEDS ORDERED: METRONIDAZOLE 500 MG/NS RTU 500 MG/100 ML RTUPB IV SCH (06:00)
[2019-10-01 06:13] LABS: ANION GAP 7 (5-19); BLOOD UREA NITROGEN 12 mg/dL (7-20); CALCIUM 8.4 mg/dL (8.4-10.2); CARBON DIOXIDE 23 mmol/L (22-30); CHLORIDE 109 mmol/L (98-107); GLUCOSE 110 mg/dL (75-110); POTASSIUM 4.6 mmol/L (3.6-5.0)
--- NOTE | 2019-10-01 08:27 | RADIOLOGY REPORT (SQ) ---
EXAM DESCRIPTION: KUB/ABDOMEN (SINGLE VIEW) COMPLETED DATE/TIME: 10/01/2019 7:47 am REASON FOR STUDY: Check Placement of NG Tube COMPARISON: 09/30/2019 NUMBER OF VIEWS: One view. TECHNIQUE: Supine radiographic image of the abdomen acquired. LIMITATIONS: Lower abdomen excluded by collimation. FINDINGS: BOWEL GAS PATTERN: Normal bowel gas pattern. No dilated loops. CALCIFICATIONS: No suspicious calcifications. SOFT TISSUES: No gross mass or suggestion of organomegaly. HARDWARE: Enteric tube tip overlies gastric body. Cholecystectomy clips. BONES: No acute fracture. No worrisome bone lesions. OTHER: Minimal linear left basilar opacities possibly atelectasis. IMPRESSION: Enteric tube tip overlies gastric body. TECHNICAL DOCUMENTATION: JOB ID: [id number] [employer]- All Rights Reserved Reading location - IP/workstation name: [email or web address]
[2019-10-01] MEDS ORDERED: LEVOFLOXACIN 500 MG/D5W RTU 500 MG/100 ML RTUPB IV SCH (10:00)
[2019-10-01] MEDS: LEVOFLOXACIN 500 MG/D5W RTU 500 MG/100 ML RTUPB IV SCH (11:01)
[2019-10-01] MEDS: ENOXAPARIN SODIUM INJ 40 MG/0.4 ML DISP.SYRIN SUBCUT SCH (11:03)
[2019-10-01] MEDS: FAMOTIDINE INJ/PF 20 MG/2 ML SDV IV SCH ×2 (11:03→21:13)
--- NOTE | 2019-10-01 12:03 | PDOC PROGRESS REPORT ---
Subjective Progress Note for:: 10/01/19 Subjective:: Patient doing much better, grateful to undergo life-saving surgery. Pain managed. Reason For Visit: INCARCERATED AND STRANGULATED VENTRAL HERNIA Physical Exam Vital Signs: Temp Pulse Resp BP Pulse Ox 97.2 F 76 17 140/84 H 96 10/01/19 08:24 10/01/19 08:24 10/01/19 08:24 10/01/19 08:24 10/01/19 09:37 Intake & Output 09/30/19 10/01/19 10/02/19 06:59 06:59 06:59 Intake Total 6000 Output Total 3150 Balance 2850 Weight 116 kg General appearance: PRESENT: no acute distress, other - Minimal output from NG tube GI/Abdominal exam: PRESENT: other - Drain in place; honeycomb dressing dry, intact Results Laboratory Results: 10/01/19 05:39 10/01/19 05:39 09/30/19 09/30/19 09/30/19 14:15 14:15 16:03 WBC 14.8 H RBC 5.91 H Hgb 15.9 H Hct 46.7 MCV 79 L MCH 26.9 L MCHC 34.0 RDW 15.6 H Plt Count 282 Seg Neutrophils % 86.2 H Sodium 138.3 Potassium 4.3 Chloride 100 Carbon Dioxide 27 Anion Gap 11 BUN 19 Creatinine 0.77 Est GFR ( Amer) > 60 Glucose 126 H Calcium 9.8 Total Bilirubin 1.0 AST 24 Alkaline Phosphatase 81 Total Protein 7.3 Albumin 4.1 Lipase 72.2 Urine Color PAULIE Urine Appearance SLIGHTLY-CLOUDY Urine pH 5.0 Ur Specific [place] 1.031 Urine Protein 100 H Urine Glucose (UA) NEGATIVE Urine Ketones TRACE H Urine Blood NEGATIVE Urine Nitrite NEGATIVE Ur Leukocyte Esterase NEGATIVE Urine WBC (Auto) 6 Urine RBC (Auto) 1 10/01/19 10/01/19 05:39 05:39 WBC 12.7 H RBC 4.95 Hgb 13.3 D Hct 39.2 MCV 79 L MCH 26.8 L MCHC 33.9 RDW 15.3 H Plt Count 227 Seg Neutrophils % 90.5 H Sodium 139.4 Potassium 4.6 Chloride 109 H Carbon Dioxide 23 Anion Gap 7 BUN 12 Creatinine 0.70 Est GFR ( Amer) > 60 Glucose 110 Calcium 8.4 Total Bilirubin AST Alkaline Phosphatase Total Protein Albumin Lipase Urine Color Urine Appearance Urine pH Ur Specific [place] Urine Protein Urine Glucose (UA) Urine Ketones Urine Blood Urine Nitrite Ur Leukocyte Esterase Urine WBC (Auto) Urine RBC (Auto) Impressions: Abdomen/Pelvis CT 09/30/19 16:07 IMPRESSION: 1. Ventral hernia containing bowel. Cannot exclude partial small bowel obstruction. 2. Mild splenomegaly. KUB X-Ray 09/30/19 23:15 IMPRESSION: Enteric tube tip overlies gastric body. Assessment & Plan - Diagnosis (1) Incarcerated hernia Is this a current diagnosis for this admission?: Yes Plan: Impression: Patient is 1 day status post exploratory midline surgery, reduction of incarcerated hernia, closure with bio a mesh, subcutaneous drain, doing well, no complications early postop Recommendations: 1. We will discontinue Browning catheter nasogastric tube 2. We will get patient out of bed and ambulating. 3. Will initiate stool softener and consolidate antibiotics - Time Time Spent with patient: 15-24 minutes Medications reviewed and adjusted accordingly: Yes Anticipated discharge: Home
[2019-10-01] MEDS: DOCUSATE SODIUM 100 MG CAPSULE PO SCH (17:38)
[2019-10-01] MEDS: ALBUTEROL SULFATE 0.083% NEB 2.5 MG/3 ML AMPUL NEB PRN (20:44)
[2019-10-02] MEDS: NORMAL SALINE 1000 ML 1,000 ML IV PRN (02:19)
[2019-10-02] MEDS: ALBUTEROL SULFATE 0.083% NEB 2.5 MG/3 ML AMPUL NEB PRN ×3 (03:50→21:40)
[2019-10-02 06:39] LABS: ABSOLUTE EOSINOPHILS # (AUTO) 0.5 10^3/uL (0.0-0.6); ABSOLUTE LYMPHOCYTES (AUTO) 0.9 10^3/uL (0.5-4.7); ABSOLUTE MONOCYTES (AUTO) 0.5 10^3/uL (0.1-1.4); ABSOLUTE NEUT (AUTO) 4.4 10^3/uL (1.7-8.2); BASOPHILS % (AUTO) 0.3 % (0-2); EOSINOPHILS % (AUTO) 7.2 % (0-6); HEMATOCRIT 34.5 % (36.0-47.0); HEMOGLOBIN 11.8 g/dL (12.0-15.5); LYMPHOCYTES % (AUTO) 14.8 % (13-45); MEAN CORPUSCULAR HEMOGLOBIN 27.2 pg (27.0-33.4); MEAN CORPUSCULAR HGB CONC 34.3 g/dL (32.0-36.0); MEAN CORPUSCULAR VOLUME 79 fl (80-97); MONOCYTES % (AUTO) 7.9 % (3-13); PLATELET COUNT 179 10^3/uL (150-450); RED BLOOD COUNT 4.35 10^6/uL (3.72-5.28); RED CELL DISTRIBUTION WIDTH 15.4 % (11.5-14.0); SEGMENTED NEUTROPHILS % (AUTO) 69.8 % (42-78); TOTAL CELLS COUNTED % (AUTO) 100 %; WHITE BLOOD COUNT 6.4 10^3/uL (4.0-10.5)
[2019-10-02 07:07] LABS: ANION GAP 7 (5-19); BLOOD UREA NITROGEN 9 mg/dL (7-20); CALCIUM 8.2 mg/dL (8.4-10.2); CARBON DIOXIDE 24 mmol/L (22-30); CHLORIDE 107 mmol/L (98-107); GLUCOSE 78 mg/dL (75-110); POTASSIUM 3.8 mmol/L (3.6-5.0)
[2019-10-02] MEDS: LEVOFLOXACIN 500 MG/D5W RTU 500 MG/100 ML RTUPB IV SCH (10:45)
[2019-10-02] MEDS: DOCUSATE SODIUM 100 MG CAPSULE PO SCH ×2 (10:46→17:26)
[2019-10-02] MEDS: MORPHINE SULFATE 10 MG/ML INJ IV PRN (10:46)
[2019-10-02] MEDS: ENOXAPARIN SODIUM INJ 40 MG/0.4 ML DISP.SYRIN SUBCUT SCH (10:47)
[2019-10-02] MEDS: FAMOTIDINE INJ/PF 20 MG/2 ML SDV IV SCH (10:47)
[2019-10-02] MEDS ORDERED: TRAMADOL HCL 50 MG TABLET PO PRN (14:20)
[2019-10-02] MEDS ORDERED: ACETAMINOPHEN 325 MG TABLET PO PRN (14:21)
--- NOTE | 2019-10-02 14:28 | PDOC PROGRESS REPORT ---
Subjective Progress Note for:: 10/02/19 Subjective:: Patient comfortable, requesting regular meal Reason For Visit: INCARCERATED AND STRANGULATED VENTRAL HERNIA Physical Exam Vital Signs: Temp Pulse Resp BP Pulse Ox 98.0 F 81 17 136/71 H 96 10/02/19 11:44 10/02/19 11:44 10/02/19 11:44 10/02/19 11:44 10/02/19 11:44 Intake & Output 10/01/19 10/02/19 10/03/19 06:59 06:59 06:59 Intake Total 6000 1100 Output Total 3205 650 Balance 2795 450 Weight 116 kg 119.7 kg General appearance: PRESENT: no acute distress Respiratory exam: PRESENT: clear to auscultation anny Cardiovascular exam: PRESENT: RRR GI/Abdominal exam: PRESENT: normal bowel sounds, soft, other - Surgical wound covered with dressings clean, dry, and intact; Rj drain in place in the left lower quadrant, filled with serosanguineous fluid; lower abdomenal wound without erythema, edema, or drainage Results Laboratory Results: 10/02/19 06:02 10/02/19 06:02 10/02/19 10/02/19 06:02 06:02 WBC 6.4 RBC 4.35 Hgb 11.8 L Hct 34.5 L MCV 79 L MCH 27.2 MCHC 34.3 RDW 15.4 H Plt Count 179 Seg Neutrophils % 69.8 Sodium 138.4 Potassium 3.8 Chloride 107 Carbon Dioxide 24 Anion Gap 7 BUN 9 Creatinine 0.70 Est GFR ( Amer) > 60 Glucose 78 Calcium 8.2 L Impressions: Abdomen/Pelvis CT 09/30/19 16:07 IMPRESSION: 1. Ventral hernia containing bowel. Cannot exclude partial small bowel obstruction. 2. Mild splenomegaly. KUB X-Ray 09/30/19 23:15 IMPRESSION: Enteric tube tip overlies gastric body. Assessment & Plan - Diagnosis (1) Incarcerated hernia Is this a current diagnosis for this admission?: Yes (2) Smoker Is this a current diagnosis for this admission?: Yes - Time Time Spent with patient: 25-34 minutes - Plan Summary Plan Summary: Assessment: Postoperative day #2 following surgery repair of incarcerated postsurgical ventral hernia with absorbable mesh and bilateral component separation Vital signs stable, patient afebrile Good urine output Intra-abdominal Rj drain output 150 mL for the past 24 hours, serosanguineous in type Physical exam shows a soft abdomen with incision clean, dry, and intact Plan: Stop IV fluids advance diet to regular Stop IV narcotics Oral Tylenol Tramadol for intense pain Out of bed up in chair If the patient continues to improve possible discharge tomorrow with the Rj drain
[2019-10-02] MEDS: KETOROLAC TROMETHAMINE 10 MG TABLET PO PRN (21:38)
[2019-10-03 07:25] LABS: ABSOLUTE EOSINOPHILS # (AUTO) 0.6 10^3/uL (0.0-0.6); ABSOLUTE LYMPHOCYTES (AUTO) 1.1 10^3/uL (0.5-4.7); ABSOLUTE MONOCYTES (AUTO) 0.4 10^3/uL (0.1-1.4); BASOPHILS % (AUTO) 0.3 % (0-2); EOSINOPHILS % (AUTO) 8.3 % (0-6); HEMATOCRIT 36.2 % (36.0-47.0); HEMOGLOBIN 12.6 g/dL (12.0-15.5); MEAN CORPUSCULAR HEMOGLOBIN 27.3 pg (27.0-33.4); MEAN CORPUSCULAR HGB CONC 34.7 g/dL (32.0-36.0); MEAN CORPUSCULAR VOLUME 79 fl (80-97); MONOCYTES % (AUTO) 5.5 % (3-13); PLATELET COUNT 200 10^3/uL (150-450); RED CELL DISTRIBUTION WIDTH 15.3 % (11.5-14.0); SEGMENTED NEUTROPHILS % (AUTO) 69.9 % (42-78); TOTAL CELLS COUNTED % (AUTO) 100 %; WHITE BLOOD COUNT 7.1 10^3/uL (4.0-10.5)
[2019-10-03 07:40] LABS: ANION GAP 13 (5-19); BLOOD UREA NITROGEN 6 mg/dL (7-20); CALCIUM 8.6 mg/dL (8.4-10.2); CARBON DIOXIDE 25 mmol/L (22-30); CHLORIDE 101 mmol/L (98-107); GLUCOSE 107 mg/dL (75-110); POTASSIUM 3.3 mmol/L (3.6-5.0)
[2019-10-03] MEDS: KETOROLAC TROMETHAMINE 10 MG TABLET PO PRN (09:58)
[2019-10-03] MEDS: ENOXAPARIN SODIUM INJ 40 MG/0.4 ML DISP.SYRIN SUBCUT SCH (09:58)
[2019-10-03] MEDS: DOCUSATE SODIUM 100 MG CAPSULE PO SCH (09:58)
[2019-10-03] MEDS: LEVOFLOXACIN 500 MG/D5W RTU 500 MG/100 ML RTUPB IV SCH (09:59)
[2019-10-03] MEDS: ALBUTEROL SULFATE 0.083% NEB 2.5 MG/3 ML AMPUL NEB PRN (11:48)
[2019-10-03 15:28] VITALS: BP 130/66
--- NOTE | 2019-10-28 14:38 | PDOC DISCHARGE SUMMARY ---
General - Admit/Disc Date/PCP Admission Date/Primary Care Provider: 09/30/19 18:45 OLAF VASQUEZ MD Discharge Date: 10/03/19 - Discharge Diagnosis Final Diagnosis: Incarcerated strangulated ventral hernia - Assessment Summary: Patient is a 77-year-old female with a right colon cancer who underwent laparoscopic right hemicolectomy on September 29, 2019. The procedure was well tolerated, postoperatively, the patient was visualized on the floor on a full liquid diet and IV fluids. She was able tolerated p.o., subsequently on postop day #4 the patient presented with a bowel movement and was able tolerated a low fiber diet without any problems. Her vital signs remained stable throughout her entire hospitalization. On physical exam, the abdomen was soft, not distended, and not tender, with positive bowel sounds, all incisions were clean, dry, and intact. Work was within normal limits. Pain control was adequate with IV narcotics and oral painkillers. On day of discharge, the patient presented with a bowel movement and was tolerating p.o. well she was discharged on the same day, October 03, 2019. Charge orders: Home today f/u w/Dr. Jones in 10 days Low fiber diet for 3 weeks Shower only until office appointment Resume home medications Tramadol 50 mg p.o. every 6 hours as needed for pain Colace 20 mg p.o. twice daily as needed for constipation No wound care needed Activities as tolerated, no lifting more than 10 pounds or straining for about 3 months, then resume as tolerated Use MiraLAX or Colace as needed for constipation, do not use vegetable fibers to treat constipation - Additional Information Resuscitation Status: Full Code Discharge Diet: Regular Discharge Activity: Activity As Tolerated, No Lifting Over 10 Pounds, No Lifting/Push/Pulling, No tub bath Referrals: SHEN VARGAS MD [ACTIVE STAFF] - 10/13/19 2:45 pm OLAF VASQUEZ MD [Primary Care Provider] - 10/08/19 10:30 am (Ms. Da Silva will see the patient. ) Prescriptions: Docusate Sodium [Colace 100 mg Capsule] 100 mg PO BID #30 capsule Metronidazole [Flagyl 500 mg Tablet] 500 mg PO TID #15 tablet Levofloxacin [Levaquin 500 mg Tablet] 500 mg PO DAILY #5 tablet Home Medications: Acetaminophen [Tylenol 325 mg Tablet] 650 mg PO Q6HP PRN tablet 10/03/19 Docusate Sodium [Colace 100 mg Capsule] 100 mg PO BID #30 capsule 10/03/19 Levofloxacin [Levaquin 500 mg Tablet] 500 mg PO DAILY #5 tablet 10/03/19 Metronidazole [Flagyl 500 mg Tablet] 500 mg PO TID #15 tablet 10/03/19 History of Present Illiness History of Present Illness: VERONICA HERCULES is a 39 year old female, morbidly obese, with a 2-year history of lower abdominal bulge and pain diagnosis of ventral hernia. She presents the emergency room with a 4-hour history of increased lover abdominal pain to the epigastrium with swelling and intense nausea. Patient came to the emergency room yesterday with above complaints and was recommended admission; however, she the ED AMA. She returns today with worsening of her symptoms. A CT scan abdomen pelvis has been done and it reveals a lower abdominal ventral hernia containing loops of bowels with possible mechanical small bowel obstruction. Patient had multiple abdominal surgeries including 3 C-sections, 1 transabdominal hysterectomy, and cholecystectomy Physical Exam Vital Signs: Temp Pulse Resp BP Pulse Ox 97.9 F 86 14 130/66 H 99 10/03/19 15:26 10/03/19 15:26 10/03/19 15:26 10/03/19 15:26 10/03/19 15:26 Results Laboratory Results: WBC 7.1 10^3/uL (4.0-10.5) 10/03/19 06:59 RBC 4.60 10^6/uL (3.72-5.28) 10/03/19 06:59 Hgb 12.6 g/dL (12.0-15.5) 10/03/19 06:59 Hct 36.2 % (36.0-47.0) 10/03/19 06:59 MCV 79 fl (80-97) L 10/03/19 06:59 MCH 27.3 pg (27.0-33.4) 10/03/19 06:59 MCHC 34.7 g/dL (32.0-36.0) 10/03/19 06:59 RDW 15.3 % (11.5-14.0) H 10/03/19 06:59 Plt Count 200 10^3/uL (150-450) 10/03/19 06:59 Lymph % (Auto) 16.0 % (13-45) 10/03/19 06:59 [place] % (Auto) 5.5 % (3-13) 10/03/19 06:59 Eos % (Auto) 8.3 % (0-6) H 10/03/19 06:59 Baso % (Auto) 0.3 % (0-2) 10/03/19 06:59 Absolute Neuts (auto) 5.0 10^3/uL (1.7-8.2) 10/03/19 06:59 Absolute Lymphs (auto) 1.1 10^3/uL (0.5-4.7) 10/03/19 06:59 Absolute Monos (auto) 0.4 10^3/uL (0.1-1.4) 10/03/19 06:59 Absolute Eos (auto) 0.6 10^3/uL (0.0-0.6) 10/03/19 06:59 Absolute Basos (auto) 0.0 10^3/uL (0.0-0.2) 10/03/19 06:59 Seg Neutrophils % 69.9 % (42-78) 10/03/19 06:59 Sodium 139.3 mmol/L (137-145) 10/03/19 06:59 Potassium 3.3 mmol/L (3.6-5.0) L 10/03/19 06:59 Chloride 101 mmol/L (98-107) 10/03/19 06:59 Carbon Dioxide 25 mmol/L (22-30) 10/03/19 06:59 Anion Gap 13 (5-19) 10/03/19 06:59 BUN 6 mg/dL (7-20) L 10/03/19 06:59 Creatinine 0.65 mg/dL (0.52-1.25) 10/03/19 06:59 Est GFR ( Amer) > 60 (>60) 10/03/19 06:59 Est GFR (MDRD) Non-Af > 60 (>60) 10/03/19 06:59 Glucose 107 mg/dL (75-110) 10/03/19 06:59 POC Glucose 74 mg/dL (70-110) 10/02/19 11:45 Calcium 8.6 mg/dL (8.4-10.2) 10/03/19 06:59 Total Bilirubin 1.0 mg/dL (0.2-1.3) 09/30/19 14:15 Direct Bilirubin 0.3 mg/dL (0.0-0.4) 09/30/19 14:15 Neonat Total Bilirubin Not Reportable 09/30/19 14:15 Neonat Direct Bilirubin Not Reportable 09/30/19 14:15 Neonat Indirect Bili Not Reportable 09/30/19 14:15 AST 24 U/L (14-36) 09/30/19 14:15 ALT 29 U/L (<35) 09/30/19 14:15 Alkaline Phosphatase 81 U/L (38-126) 09/30/19 14:15 Total Protein 7.3 g/dL (6.3-8.2) 09/30/19 14:15 Albumin 4.1 g/dL (3.5-5.0) 09/30/19 14:15 Lipase 72.2 U/L (23-300) 09/30/19 14:15 Urine Color PAULIE 09/30/19 16:03 Urine Appearance SLIGHTLY-CLOUDY 09/30/19 16:03 Urine pH 5.0 (5.0-9.0) 09/30/19 16:03 Ur Specific [place] 1.031 09/30/19 16:03 Urine Protein 100 mg/dL (NEGATIVE) H 09/30/19 16:03 Urine Glucose (UA) NEGATIVE mg/dL (NEGATIVE) 09/30/19 16:03 Urine Ketones TRACE mg/dL (NEGATIVE) H 09/30/19 16:03 Urine Blood NEGATIVE (NEGATIVE) 09/30/19 16:03 Urine Nitrite NEGATIVE (NEGATIVE) 09/30/19 16:03 Urine Bilirubin NEGATIVE (NEGATIVE) 09/30/19 16:03 Urine Urobilinogen 2.0 mg/dL (<2.0) H 09/30/19 16:03 Ur Leukocyte Esterase NEGATIVE (NEGATIVE) 09/30/19 16:03 Urine WBC (Auto) 6 /HPF 09/30/19 16:03 Urine RBC (Auto) 1 /HPF 09/30/19 16:03 Squamous Epi Cells Auto 5 /HPF 09/30/19 16:03 Granular Casts (Auto) 1 /LPF 09/30/19 16:03 Urine Mucus (Auto) MANY /LPF 09/30/19 16:03 Urine Ascorbic Acid NEGATIVE (NEGATIVE) 09/30/19 16:03 Impressions: Abdomen/Pelvis CT 09/30/19 16:07 IMPRESSION: 1. Ventral hernia containing bowel. Cannot exclude partial small bowel obstruction. 2. Mild splenomegaly. KUB X-Ray 09/30/19 23:15 IMPRESSION: Enteric tube tip overlies gastric body.
== END 2019-10-03 15:52 | disposition home or self-care (01) | DRG 354 ==
LOC: ER 13:51 → EH 18:45 → 3S 23:13
PROVIDERS: ATTEND Surgery
PROC: 0KNK0ZZ Release Right Abdomen Muscle, Open Approach (ICD-10-PCS; 2019-09-30)
PROC: 0KNL0ZZ Release Left Abdomen Muscle, Open Approach (ICD-10-PCS; 2019-09-30)
PROC: 3E02340 Introduction of Influenza Vaccine into Muscle, Percutaneous Approach (ICD-10-PCS; 2019-09-30)
PROC: 0WUF0JZ Supplement Abdominal Wall with Synthetic Substitute, Open Approach (ICD-10-PCS; principal; 2019-09-30 19:15)
DX: K43.6 Other and unspecified ventral hernia with obstruction, without gangrene (principal); Z68.41 Body mass index [BMI] 40.0-44.9, adult; E66.01 Morbid (severe) obesity due to excess calories; I10 Essential (primary) hypertension; F17.200 Nicotine dependence, unspecified, uncomplicated; Z88.1 Allergy status to other antibiotic agents; Z90.49 Acquired absence of other specified parts of digestive tract; Z90.710 Acquired absence of both cervix and uterus; Z82.49 Family history of ischemic heart disease and other diseases of the circulatory system; Z83.3 Family history of diabetes mellitus; Z83.438 Family history of other disorder of lipoprotein metabolism and other lipidemia; Z98.891 History of uterine scar from previous surgery; Z23 Encounter for immunization
CPT/HCPCS: 36415; 74018; 74177; 80048; 81001; 82962; 832; 83690; 85025; 87040; 87070; 88302; 90686; 93005; 93010; 96361; 96374; 96375; 99285; C1781; J0330; J1100; J1650; J1885; J1956; J2250; J2270; J2370; J2405; J2704; J2710; J3010; J3490; J7030; J7620; S0028

== ENCOUNTER 2020-02-01 12:10 | Emergency (ER) | payer SELFPAY ==
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
--- NOTE | 2020-02-01 13:12 | RADIOLOGY REPORT (SQ) ---
EXAM DESCRIPTION: WRIST RIGHT 3 VIEWS IMAGES COMPLETED DATE/TIME: 02/01/2020 12:53 pm REASON FOR STUDY: pain, injury COMPARISON: None. NUMBER OF VIEWS: Three views. TECHNIQUE: AP, lateral, and oblique radiographic images acquired of the right wrist. LIMITATIONS: None. FINDINGS: MINERALIZATION: Normal. BONES: The normal carpal alignment is preserved. There is no fracture or dislocation. SOFT TISSUES: Mild dorsal soft tissue swelling. OTHER: No other finding. IMPRESSION: Mild dorsal soft tissue swelling without an associated acute osseous abnormality. TECHNICAL DOCUMENTATION: JOB ID: [id number] [employer]- All Rights Reserved Reading location - IP/workstation name: [email or web address]
[2020-02-01 14:01] VITALS: BP 147/109
== END 2020-02-01 13:53 | disposition home or self-care (01) ==
LOC: ER 12:10
DX: M25.531 Pain in right wrist (principal); M79.641 Pain in right hand; X58.XXXA Exposure to other specified factors, initial encounter; I10 Essential (primary) hypertension; J44.9 Chronic obstructive pulmonary disease, unspecified
CPT/HCPCS: 99283

== ENCOUNTER 2020-06-16 19:26 | Emergency (ER) | payer OTHER ==
[2020-06-16 20:24] VITALS: BP 154/88
[2020-06-16] MEDS ORDERED: DEXAMETHASONE SOD PHOS INJ 10 MG/1 ML VIAL IM ONE (21:04)
[2020-06-16] MEDS ORDERED: KETOROLAC TROMETHAMINE 60 MG/2 ML SDV IM ONE (21:04)
[2020-06-16] MEDS ORDERED: CYCLOBENZAPRINE HCL 10 MG TABLET PO ONE (21:05)
[2020-06-16] MEDS ORDERED: ONDANSETRON 4 MG TAB.RAPDIS PO ONE (21:05)
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
== END 2020-06-16 21:25 | disposition home or self-care (01) ==
LOC: ER 19:26
DX: S16.1XXA Strain of muscle, fascia and tendon at neck level, initial encounter (principal); R51 Headache; M54.2 Cervicalgia; R11.0 Nausea; V87.7XXA Person injured in collision between other specified motor vehicles (traffic), initial encounter; Z79.899 Other long term (current) drug therapy; Z88.8 Allergy status to other drugs, medicaments and biological substances; Z87.891 Personal history of nicotine dependence; I10 Essential (primary) hypertension; J44.9 Chronic obstructive pulmonary disease, unspecified
CPT/HCPCS: 99284; 96372; J1885; S0119; J1100